=== PATIENT | male | born 1970 | race Two or more races ===

== ENCOUNTER 2024-09-11 13:55 | Outpatient (AMB) | payer MEDICAID, SELFPAY ==
[2024-09-11 14:14] VITALS: BP 98/65; PULSE 79; RESP 18; TEMP 36.7; O2SAT 96; BMI 38.0
--- NOTE | 2024-09-11 14:14 | PD.ORTHCLVIS ---
Vital signs 09/11/24 14:14 Height 1.68 m Height Method Stated Weight 106.793 kg Weight Measurement Method Standing Scale BMI 38.0 BP 98/65 Blood Pressure Source Automatic Cuff Blood Pressure Location Right Upper Arm Position Sitting Respiration 18 Pulse 79 Pulse Source Monitor Temp 98.0 F Temp Source Temporal Artery Scan Pulse Oximetry (%) 96 Oxygen Delivery Method Room Air Med/Allergies Allergies & Medications Allergies No Known Allergies Allergy (Verified 09/11/24 14:16) Medication Reconciliation atorvastatin 40 mg tablet 40 mg PO HS 09/25/22 [History Confirmed 09/11/24] clindamycin HCl 300 mg capsule 300 mg PO TID 09/25/22 [History Confirmed 09/11/24] insulin glargine 100 unit/mL (3 mL) subcutaneous pen (Lantus Solostar U-100 Insulin) 28 unit subcut HS 09/25/22 [History Confirmed 09/11/24] sitagliptin phosphate 50 mg-metformin 1,000 mg tablet (Janumet) 1 tab PO BID 09/25/22 [History Confirmed 09/11/24] omeprazole 20 mg capsule,delayed release 20 mg PO QDAY Gastrointestinal Issues 10/25/22 [History Confirmed 09/11/24] Subjective Visit Visit for: new patient and knee (RIGHT OA) Immunization / Flu Flu Vaccine in the Last 12 Months: No Flu Vaccine Exclusion Criteria: Refused by Patient History of Present Illness Chief complaint: RIGHT KNEE OA/RIGHT KNEE PAIN So good is a pleasant 53-year-old male with bilateral knee pain worse on the right. He had over 6 injections with 3 in each knee. They are no longer helping. He has tried anti-inflammatories previously. He reports that he has a history of diabetes and is uncontrolled. 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 Exam Exam Patient is in no acute distress and is cooperative with the examination today. Breathing is nonlabored. In no respiratory distress. Bilateral extremities were evaluated and demonstrates sensation intact to light touch. Palpable pedal pulses are present. No significant edema is present. Bilateral hips were examined. The patient has no pain with log roll of the hips. Internal rotation to 30 degrees and external rotation to 30 degrees is painless. Negative FADIR. The left knee was examined. The left knee is in [varus] alignment. Range of motion from [0-115] degrees. Knee is stable to varus and valgus as well as AP translation with <5mm. Patient has a [negative] McMurrays. There is [no] pain with patellofemoral compression and [no] crepitus noted. The knee is [tender] to palpation [medially]. The right knee was also examined. The right knee is in [varus] alignment. Range of motion from [0-120] degrees. Knee is stable to varus and valgus as well as AP translation with <5mm. Patient has a [negative] McMurrays. There is [no] pain with patellofemoral compression and [no] crepitus noted. The knee is [tender] to palpation [medially]. We reviewed x-rays that are nonweightbearing. This demonstrates severe arthritis and joint space narrowing Assessment and Plan Problem List (1) Degenerative arthritis of knee, bilateral: Status: Acute Plan: Patient is a pleasant 53-year-old male with bilateral knee pain and bilateral knee arthritis. We discussed nonoperative and operative options. We discussed that he needs to be optimized medically. We need his diabetes to be better controlled we will order hemoglobin A1c right now. In addition, he needs to stop smoking before surgery. We will get weightbearing x-rays to better evaluate how his knee looks currently. 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
== END 2024-09-11 14:33 | disposition home or self-care (01) ==
PROVIDERS: PCP Registered Nurse Community Health; Referring Provider Registered Nurse Community Health; Supervising Provider Orthopaedic Surgery Adult Reconstructive Orthopaedic Surgery; Visit Provider Orthopaedic Surgery Adult Reconstructive Orthopaedic Surgery
DX: M17.0 Bilateral primary osteoarthritis of knee (principal); M25.562 Pain in left knee; M25.561 Pain in right knee; E11.9 Type 2 diabetes mellitus without complications; E78.00 Pure hypercholesterolemia, unspecified; I10 Essential (primary) hypertension
CPT/HCPCS: 99204; G0463

== ENCOUNTER → 2024-09-25 | Outpatient (CLI) | payer MEDICAID, SELFPAY ==
--- NOTE | 2024-09-25 14:30 | XR_ITS ---
Examination: Carotid arterial duplex scan, ultrasound. Date and time of exam: September 25, 2024 1418 hours INDICATIONS: Dizziness episodes beginning 2 years ago, worse the last 2 months Technique: Multiple sonographic images have been obtained of the carotid arteries and vertebral arteries, B-mode/grayscale imaging and Doppler spectral analysis and color flow Peak systolic and diastolic velocities have been recorded. Systolic diastolic ratios have been calculated. Findings: Right peak systolic velocities: Distal internal carotid artery peak systolic velocity is 0.7 M/sec Proximal internal carotid artery peak systolic velocity is 0.5 M/sec Carotid bifurcation peak systolic velocity is 1.2 M/sec External carotid artery peak systolic velocity is 1.1 M/sec Vertebral artery flow is antegrade. Left peak systolic velocities: Distal internal carotid artery peak systolic velocity is 0.6 M/sec Proximal internal carotid artery peak systolic velocity is 0.3 M/sec Carotid bifurcation peak systolic velocity is 1.1 M/sec External carotid artery peak systolic velocity is 0.5 M/sec Vertebral artery flow is antegrade Doppler waveform analysis demonstrates no spectral broadening Impression: Right internal carotid artery demonstrates 0-10% stenosis. Left internal carotid artery demonstrates 0-10% stenosis.
== END | disposition home or self-care (01) ==
PROVIDERS: PCP Registered Nurse Community Health; Referring Provider Registered Nurse Community Health; Visit Provider Registered Nurse Community Health
DX: E78.2 Mixed hyperlipidemia (principal); R42 Dizziness and giddiness; I10 Essential (primary) hypertension
CPT/HCPCS: 93880

== ENCOUNTER → 2024-09-28 | Outpatient (CLI) | payer MEDICAID, SELFPAY ==
--- NOTE | 2024-09-28 14:00 | ECHO_ITS ---
Transthoracic Echo Report Ht (in): 66 Wt (lb): 238 Exam Location: Echo Lab Status: Preadmit Industrial Controller: Juhi Watson Indications: Procedure Performed: BP: / HR: Rhythm: Sinus Technical Quality: Fair MEASUREMENTS (Male / Female) Normal Values 2D ECHO LV Diastolic Diameter PLAX 5.4 cm 4.2 - 5.9 / 3.9 - 5.3 cm LV Systolic Diameter PLAX 3.4 cm IVS Diastolic Thickness 1.0 cm 0.6 - 1.0 / 0.6 - 0.9 cm LVPW Diastolic Thickness 1.1 cm 0.6 - 1.0 / 0.6 - 0.9 cm LV Relative Wall Thickness 0.4 LVOT Diameter 1.9 cm LA Volume Index 23.8 cm?/m? 16 - 28 cm?/m? Ascending Aorta Diameter 3.5 cm M-MODE Aortic Root Diameter MM 2.9 cm LA Systolic Diameter MM 4.0 cm LA Ao Ratio MM 1.4 AV Cusp Separation MM 2.2 cm DOPPLER AV Peak Velocity 182.0 cm/s AV Peak Gradient 13.2 mmHg AV Mean Gradient 7.0 mmHg AV Velocity Time Integral 37.4 cm LVOT Peak Velocity 123.0 cm/s LVOT Peak Gradient 6.1 mmHg LVOT Velocity Time Integral 24.3 cm AV Area Cont Eq vti 1.8 cm? AV Area Cont Eq pk 1.9 cm? MV Peak Velocity 77.5 cm/s MV Peak Gradient 2.4 mmHg MV Mean Velocity 48.9 cm/s MV Mean Gradient 1.0 mmHg MV Area PHT 3.1 cm? Mitral E Point Velocity 69.8 cm/s Mitral A Point Velocity 73.7 cm/s Mitral E to A Ratio 0.9 LV E' Lateral Velocity 6.3 cm/s Mitral E to LV E' Lateral Ratio 11.1 LV E' Septal Velocity 7.3 cm/s Mitral E to LV E' Septal Ratio 9.6 FINDINGS Left Ventricle Normal left ventricular size, wall thickness, systolic function with no obvious regional wall motion abnormalities. The ejection fraction is visually estimated at 55-60%. Right Ventricle The right ventricle is normal in size and systolic function. Left Atrium The left atrium is normal by two-dimensional, color flow and Doppler imaging with no structural abnormalities, no thrombus formation present. Right Atrium The right atrium is normal by two-dimensional imaging, color flow and Doppler imaging with no struct ural abnormalities, no thrombus formation present. Atrial Septum The interatrial septum appears normal with no evidence of a shunt. Aorta The aorta is normal by two-dimensional, color flow and Doppler interrogation. Mitral Valve The mitral valve is normal by two-dimensional, color flow and Doppler interrogation. There is no sig nificant mitral valve regurgitation. Aortic Valve The aortic valve is trileaflet and normal by two-dimensional, color flow and Doppler interrogation. There is trace aortic valve regurgitation. Tricuspid Valve The tricuspid valve is normal by two-dimensional, color flow and Doppler interrogation. There is tra ce tricuspid valve regurgitation. Pulmonic Valve There is no significant pulmonic valve regurgitation. Vessels The pulmonary artery appears normal. The inferior vena cava pulmonary and hepatic veins appear betito l. Pericardium The pericardium is normal by two-dimensional imaging. There is no significant pericardial effusion. CONCLUSIONS Normal LV size and function. Estimated EF 55-60% Normal RV size and function Trace TR, AI. Jeanine Schneider (Electronically Signed) Final Date: 01 October 2024 08:43
== END | disposition home or self-care (01) ==
LOC: SDIM 13:11
PROVIDERS: PCP Registered Nurse Community Health; Referring Provider Registered Nurse Community Health; Visit Provider Registered Nurse Community Health
DX: I08.2 Rheumatic disorders of both aortic and tricuspid valves (principal)
CPT/HCPCS: 93306

== ENCOUNTER 2024-10-12 08:19 | Outpatient (AMB) | payer MEDICAID, SELFPAY ==
[2024-10-12 08:44] VITALS: BP 132/87; PULSE 68; RESP 16; TEMP 36.7; O2SAT 96; BMI 37.7
--- NOTE | 2024-10-12 08:44 | PD.ORTHCLVIS ---
Vital signs 10/12/24 08:44 Height 1.68 m Height Method Stated Weight 105.942 kg Weight Measurement Method Standing Scale BMI 37.7 BP 132/87 H Blood Pressure Source Automatic Cuff Blood Pressure Location Left Upper Arm Position Sitting Respiration 16 Pulse 68 Pulse Source Monitor Temp 98.1 F Temp Source Temporal Artery Scan Pulse Oximetry (%) 96 Oxygen Delivery Method Room Air Med/Allergies Allergies & Medications Allergies No Known Allergies Allergy (Verified 10/12/24 08:45) Medication Reconciliation atorvastatin 40 mg tablet 40 mg PO HS 09/25/22 [History Confirmed 10/12/24] clindamycin HCl 300 mg capsule 300 mg PO TID 09/25/22 [History Confirmed 10/12/24] insulin glargine 100 unit/mL (3 mL) subcutaneous pen (Lantus Solostar U-100 Insulin) 28 unit subcut HS 09/25/22 [History Confirmed 10/12/24] sitagliptin phosphate 50 mg-metformin 1,000 mg tablet (Janumet) 1 tab PO BID 09/25/22 [History Confirmed 10/12/24] omeprazole 20 mg capsule,delayed release 20 mg PO QDAY Gastrointestinal Issues 10/25/22 [History Confirmed 10/12/24] Exam Exam Patient is in no acute distress and is cooperative with the examination today. Breathing is nonlabored. In no respiratory distress. Bilateral extremities were evaluated and demonstrates sensation intact to light touch. Palpable pedal pulses are present. No significant edema is present. Bilateral hips were examined. The patient has no pain with log roll of the hips. Internal rotation to 30 degrees and external rotation to 30 degrees is painless. Negative FADIR. The left knee was examined. The left knee is in [varus] alignment. Range of motion from [0-115] degrees. Knee is stable to varus and valgus as well as AP translation with <5mm. Patient has a [negative] McMurrays. There is [no] pain with patellofemoral compression and [no] crepitus noted. The knee is [tender] to palpation [medially]. The right knee was also examined. The right knee is in [varus] alignment. Range of motion from [0-120] degrees. Knee is stable to varus and valgus as well as AP translation with <5mm. Patient has a [negative] McMurrays. There is [no] pain with patellofemoral compression and [no] crepitus noted. The knee is [tender] to palpation [medially]. We reviewed x-rays that are nonweightbearing. This demonstrates severe arthritis and joint space narrowing Assessment and Plan Problem List (1) Degenerative arthritis of knee, bilateral: Status: Acute Plan: Patient is a pleasant 53-year-old male with bilateral knee pain and bilateral knee arthritis. We discussed nonoperative and operative options. We discussed that he needs to be optimized medically. We need his diabetes to be better controlled we will order hemoglobin A1c right now. In addition, he needs to stop smoking before surgery. W We will get a repeat hemoglobin A1c to see if his sugars are controlled. We discussed that it would need to be under 8 for us to proceed with surgery. We also would like him to stop smoking Office Procedures GNS Level of Care Nursing/Assessment Patient Status: Established Patient Nursing Assessment/Reassesment: Medication Reconciliation, Update PMH in EMR and Vital Signs Coordination of Care: Complex Care and Chronic Disease 1-5, Education Complex Pt/Fam and Staff clarify orders Special Needs: Language special needs Established Patient Charge Established Patient Point Assignment: 85 Established Patient Point Charge: EP Level 3 (80-115) MA Intake Visit Data Collection New Patient or Established: Established Patient (seen at [facility] within 3 years) Reason for Visit:: follow up bilateral knee pain and xray results Seen by Clinical Staff ONLY (RN/MA): No 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 PCP or OBGYN visit in last 3 months: Yes Hx Now: No Do You Feel Safe at Home: Yes Questionairres Past Medical History Past Medical History Have you ever been diagnosed with any of the following: Cardiology Problems Hypercholesterolemia: Yes Congestive Heart Failure: No Hypertension: Yes Respiratory Problems Chronic Obstructive Pulmonary Disease (COPD): No Smoking: Yes (15 YEARS) Smoking Cessation Counseling: No Smoking Exposure: Yes Stomache/Intestinal Problems Gastroesophageal Reflux Disease: Yes Genital/Urinary Problems Renal Disease: No Endocrine Problems Diabetes Mellitus Type 1: Yes Diabetes Mellitus Type 2: Yes Psychologic Problems Depression: Yes Anxiety: Yes Subjective Visit Visit for: follow up visit and knee Immunization / Flu Flu Vaccine in the Last 12 Months: No Flu Vaccine Exclusion Criteria: Refused by Patient History of Present Illness Chief complaint: follow up bilateral knee pain and xray results Patient is a pleasant 54-year-old male who presents today for evaluation of his bilateral knees. He has had knee pain for quite some time. He has tried over 6 injections in each knee. The pain side effect is quite life and happiness. He has uncontrolled diabetes. We asked him to get a hemoglobin A1c but he did not get one. He still smoking 3 cigarettes a day Pain Pain level (0-10): 8 Pain duration: with movement Pain location: inside (medial), outside (lateral), anterior and posterior Pain quality: aching Pain timing: increases with activity Associated signs & symptoms: none Ambulatory data Ambulatory device: none Treatments Number of previous injections: 8 Improvement with previous injections: No Improvement with NSAIDS: yes Review of Systems Review of Systems: All systems negative unless otherwise noted in HPI.
== END 2024-10-12 09:20 | disposition home or self-care (01) ==
PROVIDERS: PCP Registered Nurse Community Health; Referring Provider Registered Nurse Community Health; Supervising Provider Orthopaedic Surgery Adult Reconstructive Orthopaedic Surgery; Visit Provider Orthopaedic Surgery Adult Reconstructive Orthopaedic Surgery
DX: M17.0 Bilateral primary osteoarthritis of knee (principal); M25.562 Pain in left knee; M25.561 Pain in right knee; E11.9 Type 2 diabetes mellitus without complications; I10 Essential (primary) hypertension; E78.00 Pure hypercholesterolemia, unspecified; K21.9 Gastro-esophageal reflux disease without esophagitis
CPT/HCPCS: 99213; G0463

== ENCOUNTER → 2025-03-28 | Outpatient (CLI) | payer MEDICAID, SELFPAY ==
--- NOTE | 2025-03-28 14:11 | XR_ITS ---
Examination: CT brain head without contrast. 2-D sagittal coronal reconstructions Date and time of exam:March 28, 2025 1449 hours INDICATIONS: Dizziness vertigo 2 years CTDI: vol (mGy):55 DLP: (mGycm):1078 Technique: Multiple CT axial sections of the brain have been obtained, 5 mm slice thickness. Contrast has not been administered. 2-D sagittal, coronal reconstructions have been obtained Low dose protocols were performed. One or more of the following dose reduction techniques were used; automated exposure control, adjustment of the mA and/or KV according to patient size, use of iterative reconstruction technique. Findings: No significant ventricular enlargement. Intra-axial or extra-axial hemorrhage density is not seen. No mass effect or midline shift Basal cisterns are not remarkable. Fourth ventricle is midline. Cranial vault intact. Impression: Negative for acute hemorrhage, mass effect or midline shift
== END | disposition home or self-care (01) ==
PROVIDERS: PCP Registered Nurse Community Health; Referring Provider Registered Nurse Community Health; Visit Provider Registered Nurse Community Health
DX: R42 Dizziness and giddiness (principal); E11.65 Type 2 diabetes mellitus with hyperglycemia; I10 Essential (primary) hypertension; R51.9 Headache, unspecified
CPT/HCPCS: 70450

== ENCOUNTER 2025-05-02 14:53 | Outpatient (AMB) | payer MEDICAID, SELFPAY ==
[2025-05-02 15:19] VITALS: BP 151/93; PULSE 79; RESP 16; TEMP 35.8; O2SAT 92; BMI 38.6
--- NOTE | 2025-05-02 15:19 | ORTHONT_ITS ---
Vital signs 05/02/25 15:19 Height 1.68 m Height Method Stated Weight 109.032 kg Weight Measurement Method Standing Scale BMI 38.6 BP 151/93 H Blood Pressure Source Automatic Cuff Blood Pressure Location Right Upper Arm Position Sitting Respiration 16 Pulse 79 Pulse Source Monitor Temp 96.4 F L Temp Source Temporal Artery Scan Pulse Oximetry (%) 92 L Oxygen Delivery Method Room Air Med/Allergies Allergies & Medications Allergies No Known Allergies Allergy (Verified 05/02/25 15:20) Medication Reconciliation atorvastatin 40 mg tablet 40 mg PO HS 09/25/22 [History Confirmed 05/02/25] clindamycin HCl 300 mg capsule 300 mg PO TID 09/25/22 [History Confirmed 05/02/25] insulin glargine 100 unit/mL (3 mL) subcutaneous pen (Lantus Solostar U-100 Insulin) 28 unit subcut HS 09/25/22 [History Confirmed 05/02/25] sitagliptin phosphate 50 mg-metformin 1,000 mg tablet (Janumet) 1 tab PO BID 09/25/22 [History Confirmed 05/02/25] omeprazole 20 mg capsule,delayed release 20 mg PO QDAY Gastrointestinal Issues 10/25/22 [History Confirmed 05/02/25] Exam Exam Patient is in no acute distress and is cooperative with the examination today. Breathing is nonlabored. In no respiratory distress. Bilateral extremities were evaluated and demonstrates sensation intact to light touch. Palpable pedal pulses are present. No significant edema is present. Bilateral hips were examined. The patient has no pain with log roll of the hips. Internal rotation to 30 degrees and external rotation to 30 degrees is painless. Negative FADIR. The left knee was examined. The left knee is in [varus] alignment. Range of motion from [0-115] degrees. Knee is stable to varus and valgus as well as AP translation with <5mm. Patient has a [negative] McMurrays. There is [no] pain with patellofemoral compression and [no] crepitus noted. The knee is [tender] to palpation [medially]. The right knee was also examined. The right knee is in [varus] alignment. Range of motion from [0-120] degrees. Knee is stable to varus and valgus as well as AP translation with <5mm. Patient has a [negative] McMurrays. There is [no] pain with patellofemoral compression and [no] crepitus noted. The knee is [tender] to palpation [medially]. X-rays from August 2024 demonstrates complete joint space obliteration both knees medially with varus deformity. Osteophytes are present Assessment and Plan Problem List (1) Degenerative arthritis of knee, bilateral: Status: Acute Plan: Patient is a pleasant 53-year-old male with bilateral knee pain and bilateral knee arthritis. His hemoglobin A1c is 7.9. His diabetes is well-controlled. We thus discussed total knee replacement is a reasonable option. The pain is worse on the right and we will thus start on that side. The nature and purpose of the total knee replacement, alternative method(s) of treatment, the material risks involved, and the possibility of complications were fully explained to the patient. The patient does NOT have any of the following contraindications to TKA: - Active infection of the knee joint, OR - Active systemic bacteremia, OR - Active skin infection or open wound at surgical site, OR - Neuropathic arthritis, OR - Severe, rapidly progressive neurological disease, OR - Severe medical condition that makes risks of surgery outweigh the potential benefit The patient was told the most common risks and complications associated with a total knee replacement include, but are not limited to: blood clots in the leg, fatal pulmonary embolism, dislocation of the prosthesis, intraoperative and postoperative fractures of the femur or tibia, infection, failure of the prosthesis or grafting materials, complications from anesthesia, reactions to blood transfusions, postoperative leg length inequality, instability of the knee replacement, nerve damage or injury, vascular injury, delayed wound healing, infection, other injury or even . In addition, there are risks associated with anesthesia given during this operation. Also, the patient was told that after undergoing a total knee replacement there may still be persistent pain or disability. The patient was informed that the success of this operation in part depends upon the mechanical devices which are going to be implanted and that these devices can fail or malfunction, and may need to be repaired or replaced and there are no guarantees as to the longevity of this device or its parts and that it or its parts could fail prematurely. The patient was also notified that during the course of surgery, there may be a need to use bone graft from donors, and that any bone graft used will be carefully screened for communicable diseases, including AIDS, hepatitis, Paul-Creutzfeldt, or other diseases, but despite the screening procedures, there is a small chance that they could contract one of these diseases. Finally, the patient was asked to follow completely and fully with all advice and recommended treatments, and that recovery and ultimate outcome are affected by their compliance with recommended treatment. We discussed the risks, benefits and treatment alternatives, and the patient is interested in proceeding with surgery. We will try to set this up as expeditiously as possible. Office Procedures GNS Level of Care Nursing/Assessment Patient Status: Established Patient Nursing Assessment/Reassesment: Medication Reconciliation, Update PMH in EMR and Vital Signs Coordination of Care: Complex Care and Chronic Disease 1-5, Education Complex Pt/Fam, Consent,records obtained, informed consent, Education Simp Pt/Fam and Staff clarify orders Special Needs: Language special needs Established Patient Charge Established Patient Point Assignment: 105 Established Patient Point Charge: EP Level 3 (80-115) MA Intake Visit Data Collection New Patient or Established: Established Patient (seen at [facility] within 3 years) Reason for Visit:: SURGERY CLEARANCE Seen by Clinical Staff ONLY (RN/MA): No 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 PCP or OBGYN visit in last 3 months: No Hx Now: No Do You Feel Safe at Home: Yes Authorities Contacted: N/A Questionairres Past Medical History Past Medical History Have you ever been diagnosed with any of the following: Neurological Problems Cerebrovascular Accident (CVA): No Transient Ischemic Attacks (TIA): No Dementia: No Alzheimer's Disease: No Parkinson's Disease: No Brain Tumor: No Meningitis: No Seizures: No Epilepsy: No Multiple Sclerosis: No Cerebral Palsy: No Amyotrophic Lateral Sclerosis (ALS/Laverne Gehrig's): No Guillain-Clearfield Syndrome: No Spina Bifida: No Paralysis: No Peripheral Neuropathy: No Kang's Palsy: No Subdural Hematoma: No Migraine: No Head Trauma: No Spinal Cord Injury: No Traumatic Brain Injury: No Cardiology Problems Myocardial Infarction: No Cardiac Arrhythmia: No Atrial Fibrillation: No Angina: No Heart Murmur: No Coronary Artery Disease: No Atherosclerotic Heart Disease: No Peripheral Vascular Disease: No Hypercholesterolemia: Yes Aneurysm: No Congestive Heart Failure: No Congenital Heart Disease: No Valvular Heart Disease: No Rheumatic Fever: No Cardiomyopathy: No Edema: No Pericarditis: No Cellulitis: No Deep Vein Thrombosis: No Hypertension: Yes Hypotension: No Varicose Veins: No Respiratory Problems Chronic Obstructive Pulmonary Disease (COPD): No Asthma: No Bronchitis: No Emphysema: No Pneumonia: No Pulmonary Fibrosis: No Tuberculosis: No Pulmonary Embolism: No Pulmonary Edema: No Sleep Apnea: No CPAP Dependent: No Respiratory Aspiration: No Dyspnea: No Orthopnea: No Hx Cough: No Cough: No Wheezing: No Chest Deformities: No Smoking: Yes (15 YEARS) Smoking Cessation Counseling: No Smoking Exposure: Yes Tobacco Use: No Clubbing: No Exposure to Respiratory Irritants: No Intubation: No Stomache/Intestinal Problems Liver Cancer: No Hepatitis: No Cirrhosis: No Pancreatic Cancer: No Pancreatitis: No Celiac Disease: No Gall Bladder Disease: No Gastrointestinal Bleed: No Esophageal Varices: No Sidhu's Esophagus: No Colitis: No Ulcerative Colitis: No Diverticulitis: No Diverticulosis: No Ulcer: No Colorectal Cancer: No Irritable Bowel: No Crohn's Disease: No Obstructive Bowel: No Hiatal Hernia: No Hemorrhoids: No Gastroesophageal Reflux Disease: Yes Polyps: No Obesity: No Genital/Urinary Problems Chronic Kidney Disease: No Renal Disease: No Kidney Stones: No Polycystic Kidney Disease: No Neurogenic Bladder: No Inguinal Hernia: No Dialysis: No Prostate Cancer: No Benign Prostatic Hyperplasia: No Reproductive Problems Breast Cancer: No Fibroids: No Genital Herpes: No Gonorrhea: No Syphilis: No Testicular Cancer: No Musculoskeletal Problems Muscular Dystrophy: No Myasthenia Gravis: No Marfan's Syndrome: No Bone Cancer: No Arthritis: No Rheumatoid Arthritis: No Osteoporosis: No Degenerative Disk Disease: No Gout: No Scoliosis: No Carpal Tunnel Syndrome: No Fibromyalgia: No Fractures: No Degenerative Joint Disease: No Osteomyelitis: No Poliovirus: No Head,Eye,Nose,Throat Problems Cataracts: No Glaucoma: No Blind: No Retinal Detachment: No Macular Degeneration: No Chronic Ear Infections: No Deafness: No Eye Prosthesis: No Endocrine Problems Diabetes Mellitus Type 1: Yes Diabetes Mellitus Type 2: Yes Hypoglycemia: No [place]'s Syndrome: No Houston's Disease: No Hyperthyroidism: No Hypothyroidism: No Thyroid Cancer: No Parathyroid Disease: No Pituitary Disease: No Systemic Lupus Erythematosus: No Syndrome of Inappropriate Antidiuretic Hormone: No Adrenal Disease: No Graves' Disease: No Blood Problems Anemia: No Leukemia: No Hemophilia: No Thalassemia: No Sickle Cell Disease: No Clotting Problems: No Psychologic Problems Schizophrenia: No Recreational Drug Use: No Bipolar Disorder: No Depression: Yes Anxiety: Yes Behavior Problems: No Self-Mutilation: No Attention Deficit Disorder: No Attention Deficit Hyperactivity Disorder: No Depression: No Post Traumatic Stress Disorder: No Eating Disorder: No Other Problems Hospitalization: No Autoimmune Disease: No Down Syndrome: No Autism: No Developmental Delay: No Cosmetic Surgery: No Shingles: No Falls: No Blood Transfusions: No Blood Transfusion Reaction: No Anesthesia Reactions: No Organ Transplant: No Chemotherapy: No Radiation Therapy: No Hyperbaric Therapy: No MRSA: No VRSA: No Vancomycin-Resistant Enterococci: No Human Immunodeficiency Virus (HIV): No Chicken Pox: No Measles: No Mumps: No Rubella ([place] Measles): No Pertussis: No Klebsiella Pneumoniae Carbapenemase Producing Bacteria: No Clostridium Difficile: No Hepatitis A: No Hepatitis B: No Hepatitis C: No Communicable Disease: No Cancer: No Lung Cancer: No Surgical History Angioplasty: No Appendectomy: No Bariatric Surgery: No Breast Surgery: No Cancer Surgery: No Carotid Endarterectomy: No Cholecystectomy: No Colectomy: No Colostomy: No Coronary Artery Bypass Graft: No Valve Replacement: No Herniorrhaphy: No Total Hip Replacement: No Total Knee Replacement: No Pacemaker: No Sinus Surgery: No Splenectomy: No Thyroidectomy: No Ureter Stent: No Subjective Visit Visit for: follow up visit Immunization / Flu Flu Vaccine in the Last 12 Months: No Flu Vaccine Exclusion Criteria: Refused by Patient and No Exclusion Criteria History of Present Illness Chief complaint: SURGERY CLEARANCE Patient is a pleasant 54-year-old male who presents today for evaluation of his bilateral knees. He has had knee pain for quite some time. He has tried over 6 injections in each knee. The pain side effect is quite life and happiness. He has uncontrolled diabetes previously which is now controlled. Hemoglobin A1c is 7.9. He is also stopped smoking 2 months ago. 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
== END 2025-05-02 15:54 | disposition home or self-care (01) ==
PROVIDERS: PCP Registered Nurse Community Health; Referring Provider Registered Nurse Community Health; Supervising Provider Orthopaedic Surgery Adult Reconstructive Orthopaedic Surgery; Visit Provider Orthopaedic Surgery Adult Reconstructive Orthopaedic Surgery
DX: M17.0 Bilateral primary osteoarthritis of knee (principal); M25.562 Pain in left knee; M25.561 Pain in right knee; E11.9 Type 2 diabetes mellitus without complications; I10 Essential (primary) hypertension; E78.00 Pure hypercholesterolemia, unspecified; K21.9 Gastro-esophageal reflux disease without esophagitis
CPT/HCPCS: 99213; G0463

== ENCOUNTER → 2025-05-30 | Outpatient (CLI) | payer MEDICAID, SELFPAY ==
--- NOTE | 2025-05-30 09:03 | XR_ITS ---
Examination: CT brain head without contrast. 2-D sagittal reconstructions. 2-D coronal reconstructions. Date and time of exam:May 30, 2025 1016 hours INDICATIONS: Stroke alert, onset focal neurologic deficit today CTDI: vol (mGy): 41.9 DLP: (mGycm):840 Technique: Axial sections of the brain have been obtained. 5 mm slice thickness images have been obtained. Intravenous contrast material has not been administered. Low dose protocols were performed. One or more of the following dose reduction techniques were used; automated exposure control, adjustment of the mA and/or KV according to patient size, use of iterative reconstruction technique. Findings: Ventricles normal size and configuration. No mass effect upon the ventricular system. 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
== END | disposition home or self-care (01) ==
LOC: CCTX 08:54
PROVIDERS: PCP Registered Nurse Community Health; Referring Provider Orthopaedic Surgery Adult Reconstructive Orthopaedic Surgery; Visit Provider Orthopaedic Surgery Adult Reconstructive Orthopaedic Surgery
DX: M17.11 Unilateral primary osteoarthritis, right knee (principal)
CPT/HCPCS: 73700

== ENCOUNTER 2025-05-31 14:49 | Outpatient (AMB) | payer MEDICAID, SELFPAY ==
--- NOTE | 2025-05-31 15:13 | ORTHONT_ITS ---
Vital signs 05/31/25 15:14 Height 1.68 m Height Method Stated Weight 107.983 kg Weight Measurement Method Standing Scale BMI 38.2 BP 133/90 H Blood Pressure Source Automatic Cuff Blood Pressure Location Left Upper Arm Position Sitting Respiration 18 Pulse 87 Pulse Source Monitor Temp 95.5 F L Temp Source Temporal Artery Scan Pulse Oximetry (%) 94 L Oxygen Delivery Method Room Air Med/Allergies Allergies & Medications Allergies No Known Allergies Allergy (Verified 05/31/25 15:19) Medication Reconciliation atorvastatin 40 mg tablet 40 mg PO HS 09/25/22 [History Confirmed 05/31/25] insulin glargine 100 unit/mL (3 mL) subcutaneous pen (Lantus Solostar U-100 Insulin) 25 unit subcut HS 09/25/22 [History Confirmed 05/31/25] amlodipine 10 mg tablet 10 mg PO HS 05/29/25 [History Confirmed 05/31/25] empagliflozin 25 mg tablet (Jardiance) 25 mg PO QAM 05/29/25 [History Confirmed 05/31/25] ergocalciferol (vitamin D2) 1,250 mcg (50,000 unit) capsule 1,250 mcg PO QWEEK 05/29/25 [History Confirmed 05/31/25] meloxicam 15 mg tablet 15 mg PO HS 05/29/25 [History Confirmed 05/31/25] metformin 1,000 mg tablet 1,000 mg PO BID 05/29/25 [History Confirmed 05/31/25] omeprazole 40 mg capsule,delayed release 40 mg PO DAILY 05/29/25 [History Confirmed 05/31/25] tirzepatide 5 mg/0.5 mL subcutaneous pen injector (Mounjaro) 5 mg subcut QWEEK 05/29/25 [History Confirmed 05/31/25] Exam Exam Patient is in no acute distress and is cooperative with the examination today. Breathing is nonlabored. In no respiratory distress. Bilateral extremities were evaluated and demonstrates sensation intact to light touch. Palpable pedal pulses are present. No significant edema is present. Bilateral hips were examined. The patient has no pain with log roll of the hips. Internal rotation to 30 degrees and external rotation to 30 degrees is painless. Negative FADIR. The left knee was examined. The left knee is in [varus] alignment. Range of motion from [0-115] degrees. Knee is stable to varus and valgus as well as AP translation with <5mm. Patient has a [negative] McMurrays. There is [no] pain with patellofemoral compression and [no] crepitus noted. The knee is [tender] to palpation [medially]. The right knee was also examined. The right knee is in [varus] alignment. Range of motion from [0-120] degrees. Knee is stable to varus and valgus as well as AP translation with <5mm. Patient has a [negative] McMurrays. There is [no] pain with patellofemoral compression and [no] crepitus noted. The knee is [tender] to palpation [medially]. X-rays from August 2024 demonstrates complete joint space obliteration both knees medially with varus deformity. Osteophytes are present Assessment and Plan Problem List (1) Degenerative arthritis of knee, bilateral: Status: Acute Plan: Patient is a pleasant 53-year-old male with bilateral knee pain and bilateral knee arthritis. His hemoglobin A1c is 7.9. His diabetes is well-controlled. We thus discussed total knee replacement is a reasonable option. The pain is worse on the right and we will thus start on that side. The nature and purpose of the total knee replacement, alternative method(s) of treatment, the material risks involved, and the possibility of complications were fully explained to the patient. The patient does NOT have any of the following contraindications to TKA: - Active infection of the knee joint, OR - Active systemic bacteremia, OR - Active skin infection or open wound at surgical site, OR - Neuropathic arthritis, OR - Severe, rapidly progressive neurological disease, OR - Severe medical condition that makes risks of surgery outweigh the potential benefit The patient was told the most common risks and complications associated with a total knee replacement include, but are not limited to: blood clots in the leg, fatal pulmonary embolism, dislocation of the prosthesis, intraoperative and postoperative fractures of the femur or tibia, infection, failure of the prosthesis or grafting materials, complications from anesthesia, reactions to blood transfusions, postoperative leg length inequality, instability of the knee replacement, nerve damage or injury, vascular injury, delayed wound healing, infection, other injury or even . In addition, there are risks associated with anesthesia given during this operation. Also, the patient was told that after undergoing a total knee replacement there may still be persistent pain or disability. The patient was informed that the success of this operation in part depends upon the mechanical devices which are going to be implanted and that these devices can fail or malfunction, and may need to be repaired or replaced and there are no guarantees as to the longevity of this device or its parts and that it or its parts could fail prematurely. The patient was also notified that during the course of surgery, there may be a need to use bone graft from donors, and that any bone graft used will be carefully screened for communicable diseases, including AIDS, hepatitis, Paul-Creutzfeldt, or other diseases, but despite the screening procedures, there is a small chance that they could contract one of these diseases. Finally, the patient was asked to follow completely and fully with all advice and recommended treatments, and that recovery and ultimate outcome are affected by their compliance with recommended treatment. We discussed the risks, benefits and treatment alternatives, and the patient is interested in proceeding with surgery. We will try to set this up as expeditiously as possible. Office Procedures GNS Level of Care Nursing/Assessment Patient Status: Established Patient Nursing Assessment/Reassesment: Medication Reconciliation, Update PMH in EMR and Vital Signs Coordination of Care: Complex Care and Chronic Disease 1-5, Education Complex Pt/Fam, Consent,records obtained, informed consent, Results/Orders obtained and Staff clarify orders Special Needs: Language special needs Established Patient Charge Established Patient Point Assignment: 95 Established Patient Point Charge: EP Level 3 (80-115) MA Intake Visit Data Collection New Patient or Established: Established Patient (seen at [facility] within 3 years) Reason for Visit:: PRE OP SX CHANGED TO 06/05 Seen by Clinical Staff ONLY (RN/MA): No Verbal consent obtained for Telemed visit?: No 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 PCP or OBGYN visit in last 3 months: No Hx Now: No Do You Feel Safe at Home: Yes Authorities Contacted: N/A Questionairres Past Medical History Past Medical History Have you ever been diagnosed with any of the following: Neurological Problems Cerebrovascular Accident (CVA): No Transient Ischemic Attacks (TIA): No Dementia: No Alzheimer's Disease: No Parkinson's Disease: No Brain Tumor: No Meningitis: No Seizures: No Epilepsy: No Multiple Sclerosis: No Cerebral Palsy: No Amyotrophic Lateral Sclerosis (ALS/Laverne Gehrig's): No Guillain-Edon Syndrome: No Spina Bifida: No Paralysis: No Peripheral Neuropathy: No Kang's Palsy: No Subdural Hematoma: No Migraine: No Head Trauma: No Spinal Cord Injury: No Traumatic Brain Injury: No Cardiology Problems Myocardial Infarction: No Cardiac Arrhythmia: No Atrial Fibrillation: No Angina: No Heart Murmur: No Coronary Artery Disease: No Atherosclerotic Heart Disease: No Peripheral Vascular Disease: No Hypercholesterolemia: Yes Aneurysm: No Congestive Heart Failure: No Congenital Heart Disease: No Valvular Heart Disease: No Rheumatic Fever: No Cardiomyopathy: No Edema: Yes (feet get swollen in the evening) Pericarditis: No Cellulitis: No Deep Vein Thrombosis: No Hypertension: Yes Hypotension: No Varicose Veins: No Respiratory Problems Chronic Obstructive Pulmonary Disease (COPD): No Asthma: No Bronchitis: No Emphysema: No Pneumonia: No Pulmonary Fibrosis: No Tuberculosis: No Pulmonary Embolism: No Pulmonary Edema: No Sleep Apnea: No CPAP Dependent: No Respiratory Aspiration: No Dyspnea: No Orthopnea: No Hx Cough: No Cough: No Wheezing: No Chest Deformities: No Smoking: Yes (15 YEARS) Smoking Cessation Counseling: No Smoking Exposure: Yes Tobacco Use: No Clubbing: No Exposure to Respiratory Irritants: No Intubation: No Stomache/Intestinal Problems Liver Cancer: No Hepatitis: No Cirrhosis: No Pancreatic Cancer: No Pancreatitis: No Celiac Disease: No Gall Bladder Disease: No Gastrointestinal Bleed: No Esophageal Varices: No Sidhu's Esophagus: No Colitis: No Ulcerative Colitis: No Diverticulitis: No Diverticulosis: No Ulcer: No Colorectal Cancer: No Irritable Bowel: No Crohn's Disease: No Obstructive Bowel: No Hiatal Hernia: No Hemorrhoids: No Gastroesophageal Reflux Disease: Yes Polyps: No Obesity: Yes Genital/Urinary Problems Chronic Kidney Disease: No Renal Disease: No Kidney Stones: No Polycystic Kidney Disease: No Neurogenic Bladder: No Inguinal Hernia: No Dialysis: No Prostate Cancer: No Benign Prostatic Hyperplasia: No Reproductive Problems Breast Cancer: No Fibroids: No Genital Herpes: No Gonorrhea: No Syphilis: No Testicular Cancer: No Musculoskeletal Problems Muscular Dystrophy: No Myasthenia Gravis: No Marfan's Syndrome: No Bone Cancer: No Arthritis: Yes Rheumatoid Arthritis: No Osteoporosis: No Degenerative Disk Disease: No Gout: No Scoliosis: No Carpal Tunnel Syndrome: No Fibromyalgia: No Fractures: No Degenerative Joint Disease: No Osteomyelitis: No Poliovirus: No Head,Eye,Nose,Throat Problems Cataracts: No Glaucoma: No Blind: No Retinal Detachment: No Macular Degeneration: No Chronic Ear Infections: No Deafness: No Eye Prosthesis: No Endocrine Problems Diabetes Mellitus Type 1: No Diabetes Mellitus Type 2: Yes Hypoglycemia: No Monument's Syndrome: No Sutter's Disease: No Hyperthyroidism: No Hypothyroidism: No Thyroid Cancer: No Parathyroid Disease: No Pituitary Disease: No Systemic Lupus Erythematosus: No Syndrome of Inappropriate Antidiuretic Hormone: No Adrenal Disease: No Graves' Disease: No Blood Problems Anemia: No Leukemia: No Hemophilia: No Thalassemia: No Sickle Cell Disease: No Clotting Problems: No Psychologic Problems Schizophrenia: No Recreational Drug Use: No Bipolar Disorder: No Depression: Yes Anxiety: Yes Behavior Problems: No Self-Mutilation: No Attention Deficit Disorder: No Attention Deficit Hyperactivity Disorder: No Depression: No Post Traumatic Stress Disorder: No Eating Disorder: No Other Problems Hospitalization: Yes (tooth infection, left hand surgery) Autoimmune Disease: No Down Syndrome: No Autism: No Developmental Delay: No Cosmetic Surgery: No Shingles: No Falls: No Blood Transfusions: No Blood Transfusion Reaction: No Anesthesia Reactions: No Organ Transplant: No Chemotherapy: No Radiation Therapy: No Hyperbaric Therapy: No MRSA: No VRSA: No Vancomycin-Resistant Enterococci: No Human Immunodeficiency Virus (HIV): No Chicken Pox: Yes Measles: No Mumps: No Rubella (Greek Measles): No Pertussis: No Klebsiella Pneumoniae Carbapenemase Producing Bacteria: No Clostridium Difficile: No Hepatitis A: No Hepatitis B: No Hepatitis C: No Communicable Disease: No Cancer: No Lung Cancer: No Surgical History Angioplasty: No Appendectomy: No Bariatric Surgery: No Breast Surgery: No Cancer Surgery: No Carotid Endarterectomy: No Cholecystectomy: No Colectomy: No Colostomy: No Coronary Artery Bypass Graft: No Valve Replacement: No Herniorrhaphy: No Total Hip Replacement: No Total Knee Replacement: No Pacemaker: No Sinus Surgery: No Splenectomy: No Thyroidectomy: No Ureter Stent: No Subjective Visit Visit for: follow up visit and knee Immunization / Flu Flu Vaccine in the Last 12 Months: No Flu Vaccine Exclusion Criteria: No Exclusion Criteria History of Present Illness Chief complaint: PRE-OP RIGHT TKA Patient is a pleasant 54-year-old male who presents today for evaluation of his bilateral knees. He has had knee pain for quite some time. He has tried over 6 injections in each knee. The pain side effect is quite life and happiness. He has uncontrolled diabetes previously which is now controlled. Hemoglobin A1c is 7.9. He is also stopped smoking 3 months ago. Personal History Occupation: [employer] BMI Counceling provided: Yes Pain Pain level (0-10): 6 Pain duration: with movement Pain location: anterior Pain quality: dull Pain timing: increases with activity Associated signs & symptoms: weakness Ambulatory data Ambulatory device: none Treatments Number of previous injections: 8 Improvement with previous injections: No Improvement with PT: No Improvement with NSAIDS: no Review of Systems Review of Systems: All systems negative unless otherwise noted in HPI.
[2025-05-31 15:14] VITALS: BP 133/90; PULSE 87; RESP 18; TEMP 35.3; O2SAT 94; BMI 38.2
== END 2025-05-31 15:28 | disposition home or self-care (01) ==
PROVIDERS: PCP Registered Nurse Community Health; Referring Provider Registered Nurse Community Health; Supervising Provider Orthopaedic Surgery Adult Reconstructive Orthopaedic Surgery; Visit Provider Orthopaedic Surgery Adult Reconstructive Orthopaedic Surgery
DX: M17.0 Bilateral primary osteoarthritis of knee (principal); M25.562 Pain in left knee; M25.561 Pain in right knee; I10 Essential (primary) hypertension; E78.00 Pure hypercholesterolemia, unspecified; E11.9 Type 2 diabetes mellitus without complications; K21.9 Gastro-esophageal reflux disease without esophagitis; E66.9 Obesity, unspecified; Z71.3 Dietary counseling and surveillance; Z68.38 Body mass index [BMI] 38.0-38.9, adult
CPT/HCPCS: 99213; G0463

== ENCOUNTER 2025-06-05 08:10 | Day surgery (SDC) | payer MEDICAID, SELFPAY ==
[2025-05-29 09:41] VITALS: BMI 41.1
--- NOTE | 2025-05-29 10:20 | SUR.PREOP ---
Pt denies any open wounds, left arm has 3 dry scratches.
[2025-05-29 10:39] LABS: Basophils # (Auto) 0.1 Thou/mm3 (0.0-0.2); Basophils % (Auto) 1 % (0-2.5); Eosinophils # (Auto) 0.2 Thou/mm3 (0.0-0.5); Eosinophils % (Auto) 1 % (0-10); Hematocrit 44.9 % (41.0-53.0); Hemoglobin 15.1 g/dL (13.5-16.0); Immature Granulocytes Auto 0.09 Thou/mm3 (0.00-0.00); Lymphocytes # (Auto) 2.0 Thou/mm3 (1.0-4.8); Lymphocytes % (Auto) 18 % (10-50); Mean Corpuscular HGB Conc 33.6 g/dl (31.0-37.0); Mean Corpuscular Hemoglobin 32.5 pg (25.0-35.0); Mean Corpuscular Volume 97 fL (80-100); Monocytes # (Auto) 0.8 Thou/mm3 (0.0-0.8); Monocytes % (Auto) 7 % (0-12); Neutrophils # (Auto) 8.0 Thou/mm3 (1.8-7.7); Neutrophils % (Auto) 72 % (37-80); Nucleated Red Blood Cell # 0.00 Thou/mm3 (0.00-0.00); Nucleated Red Blood Cell % 0 /100 WBC (0); Platelet Count 184 Thou/mm3 (140-440); RDW Standard Deviation 46.1 fL (35.1-43.9); Red Blood Count 4.65 Miln/mm3 (4.50-5.90); White Blood Count 11.0 Thou/mm3 (3.8-10.6)
[2025-05-29 10:47] LABS: INR 1.0 (0.9-1.3); Partial Thromboplastin Time 26.8 Seconds (22.0-36.0); Prothrombin Time 11.0 Seconds (9.0-12.2)
[2025-05-29 10:51] LABS: Alanine Aminotransferase 24 U/L (10-49); Albumin, Serum 4.0 gm/dL (3.5-5.0); Albumin/Globulin Ratio 2.2 (1.2-2.2); Alkaline Phosphatase 61 U/L (46-116); Anion Gap 11 (7-16); Aspartate Amino Transferase 15 U/L (0-34); BUN/Creatinine Ratio 21 Ratio (12-20); Bilirubin,Total 0.5 mg/dL (0.3-1.2); Blood Urea Nitrogen 17 mg/dL (9-23); Calcium 9.6 mg/dL (8.3-10.6); Calcium (Corrected) 9.6 mg/dL (8.5-10.1); Carbon Dioxide 28.1 mMol/L (20.0-31.0); Chloride 108 mMol/L (98-107); Creatinine (Component) 0.8 mg/dL (0.6-1.3); Estimated Creatinine Clearance 118.0 mL/min (>60); Globulin 1.8 gm/dL (2.3-3.5); Glucose 146 mg/dL (74-106); Osmolality,Calculated 296 (275-295); Potassium 4.5 mMol/L (3.4-5.1); Sodium 147 mMol/L (136-145); Total Protein 5.8 gm/dL (5.7-8.2); eGFR > 60 See Note
[2025-06-05] VITALS (13 sets, daily range): BP systolic 115–147; BP diastolic 77–93; PULSE 72–90; RESP 13–24; TEMP 36.1–36.6; O2SAT 92–99; BMI 43.2
[2025-06-05] MEDS: ACETAMINOPHEN 325 MG TABLET 650 MG PO (09:07)
[2025-06-05] MEDS: PREGABALIN 75 MG CAPSULE PO (09:07)
[2025-06-05] MEDS: MELOXICAM 7.5 MG TABLET PO (09:07)
--- NOTE | 2025-06-05 12:53 | SUR.PHASEI ---
pt arrived to PACU via gurney with nasal airway present, breathing unlabored, dressing to right lower extremity clean, dry, and intact, report from Mireya MCKEON and Dr Grullon
--- NOTE | 2025-06-05 13:20 | SUR.PHASEI ---
pt tolerating oral fluids without difficulty swallowing or n/v
--- NOTE | 2025-06-05 14:07 | SUR.PHASEII ---
pt awake, alert, able to follow commands, breathing unlabored, dressing to right lower extremity clean, dry, and intact, circulation to bilateral toes WNL, awaiting orders from Dr Jones
--- NOTE | 2025-06-05 14:14 | XR_ITS ---
Examination: Right knee 2 views Technique one AP lateral right knee 2 views Date and time: June 05, 2025 1429 hours INDICATIONS: Postop right knee replacement FINDINGS: Total right knee arthroplasty. Satisfactory alignment. No fracture IMPRESSION: Total right knee arthroplasty with satisfactory alignment
--- NOTE | 2025-06-05 14:15 | ESOP_ITS ---
Date of Procedure 06/05/25 Pre Op Diagnosis right knee ostearthritis Post Op Diagnosis right knee ostearthritis Procedure right total knee replacement shilo Findings full thickness cartilage loss and osteophytes Procedure Description Indication: The patient is a 54 year old who has a long history of right knee pain. X-rays show degenerative arthritis involving the knee. Over the past several years the patient has had increasing pain, progressive limitation in function. He has failed conservative measures including activity modification, physical therapy, injections, anti-inflammatories, and assistive devices. After a lengthy discussion of the risks and benefits, the patient presents now for total knee replacement. The nature and purpose of the total knee replacement, alternative method(s) of treatment, the material risks involved, and the possibility of complications were fully explained to the patient. The patient was told the most common risks and complications associated with a total knee replacement include, but are not limited to blood clots in the leg, fatal pulmonary embolism, dislocation of the prosthesis, intraoperative and postoperative fractures of the femur or tibia, infection, failure of the prosthesis or grafting materials, complications from anesthesia, reactions to blood transfusions, postoperative leg length inequality, instability of the knee replacement, nerve damage or injury, vascular injury, delayed wound healing, infections, other injury or even . In addition, there are risks associated with anesthesia given during this operation, temporary or permanent numbness on the skin lateral to the incision can be a complication unique to total knee surgery, and kneeling can be painful after knee replacement surgery. Also, the patient was told that after undergoing a total knee replacement there may still be pain or disability. We discussed with the patient that we will be using a robot-assisted technology. We discussed that there is a possibility of converting to manual instrumentation. The patient was informed that the success of this operation in part depends upon the mechanical devices which are going to be implanted and that these devices can fail or malfunction, and may need to be repaired or replaced and there are no guarantees as to the longevity of this device or its part and that it or its parts could fail prematurely. Finally, the patient was asked to follow completely and fully with all advice and recommended treatments, and that recovery and ultimate outcome are affected by their compliance with recommended treatment. Surgical technique: Patient was marked and consented in the pre-operative area. The patient was brought to the operating room and placed on the operating table in a supine position. Prior to positioning, a timeout procedure was performed between the surgeon, the anesthesiologist, and the nursing staff where the patient and the operative side were identified and confirmed. After adequate general anesthetic was obtained, the right lower extremity was prepped and draped in the usual sterile fashion. A weight based dose of Cefazolin were administered within 1 hour prior to incision. The robot was preregistered and calirated before the incision. The extremity was exsanguinated with an esmarch badge and tourniquet inflated to 250mmHg. A midline incision was made. A median parapatellar arthrotomy was made. The patella was subluxed laterally. A medial release was performed to expose the medial tibia. His femoral and tibial pins were placed through an intra incisional manner for both cases. Every effort was made to ensure that the distalmost aspect of the pin was hung in the second cortex. The arrays were then tightened several times to ensure that it was fixed for the remainder of the case. Both femoral and tibial checkpoints were then placed. We then went through the registration process of the bone. We then assessed the knee deformity and attempted to correct it. We also used the robot to aid in judging laxity in both extension and flexion. Final based on laxity and alignment we changed the preoperative assessment to obtain proper proper implant positioning and to correct deformity. Attention was then placed to the tibia. We made a tibial cut using the robot ensuring that both the MCL and the patella tendon were protected with retractors. We then went to the femur and made the posterior cut followed by the anterior cut and the anterior chamfer. The bone was then removed and we made a distal femur cut and a posterior chamfer cut. We verified all cuts. A trial reduction was performed with a size 5 femoral component and a size 4 keeled tibial component. TThe patella tracked centrally, and no lateral retinacular release was necessary. The trial implants were removed. The arrays, pins, and checkpoints were all removed. We performed a verification that all pins were removed. The cut bone surfaces were lavaged. A size 5 right femoral component, a size 4 keeled tibial component were impacted into position. The knee was felt to be well balanced in the sagittal and coronal plane. The final 4x10 mm cruciate- substituting articular insert was impacted into the tibial tray. The knee was brought out to full extension, flexed up to 120 degrees. It was stable to varus and valgus stress and appropriately balanced in flexion and extension. The wounds were copiously irrigated following deflation of tourniquet. The medial retinaculum was reapproximated with #1 vicryl and quill. The subcutaneous tissues were closed with 0 and 2-0 interrupted Vicryl. The skin was closed with 3-0 Monofilament V loc suture. A sterile dressing was applied. The patient was transferred to a bed and brought to recovery in stable condition. The patient tolerated the procedure well. There were no intraoperative complications. Sponge and needle counts were correct times 2. As the attending surgeon, I attest I was present and performed the entire operation. Grafts/Implants Size 5 CR Femur Size 4 Tibia 10mm poly CS Anesthesia GETA and spinal Implants vidal Pathology / specimen None Estimated Blood Loss 150 Condition Stable Disposition same day Surgeon Freddy Jones MD Surgical Staff Operation Date: 06/05/25 12:45 Case Staff Anesthesiologist: Erickson Grullon RNvice president payer: Randi Pinzon
--- NOTE | 2025-06-05 14:20 | SUR.PHASEII ---
xray at bedside
--- NOTE | 2025-06-05 14:50 | SUR.PHASEII ---
PT at bedside
--- NOTE | 2025-06-05 15:15 | SUR.PHASEII ---
pt returned to [place], [place] to discharge per [facility]
--- NOTE | 2025-06-05 15:35 | SUR.PHASEII ---
pt awake, alert, able to follow commands, breathing unlabored, dressing to right knee clean, dry, and intact, pedal pulses present/equal bilaterally, circulation to bilateral toes WNL, pt able to tolerate oral fluids without difficulty swallowing or n/v, discharge instructions given using telephone drawing kiln supervisor with present, all questions answered, pt discharged via wheelchair with all belongings and copies of discharge paperwork.
--- NOTE | 2025-06-11 15:18 | ESPR_ITS ---
Documentation for date of: 06/11/25 POST ANESTHESIA NOTE: Patient had GETA and R adductor canal block for R TKA on 06/05/25. I just called and spoke with him on the phone via product marketing intern and he denied any problems from anesthesia. Erickson Grullon MD Anesthesia Progress Note Progress Note Most recent Vital Signs: Last Vital Signs Temp 97.8 F 06/05/25 15:15 Pulse 86 06/05/25 15:15 Resp 20 06/05/25 15:15 BP 122/78 06/05/25 15:15 Pulse Ox 98 06/05/25 15:15 O2 Flow Rate 3 06/05/25 13:08
== END 2025-06-05 15:35 | disposition home or self-care (01) ==
PROVIDERS: Anesthesiology; PCP Registered Nurse Community Health; Referring Provider Orthopaedic Surgery Adult Reconstructive Orthopaedic Surgery; Visit Provider Orthopaedic Surgery Adult Reconstructive Orthopaedic Surgery
PROC: (CPT 27447; principal; 2025-06-05 12:30)
DX: M17.11 Unilateral primary osteoarthritis, right knee (principal); M25.761 Osteophyte, right knee
CPT/HCPCS: 27447; 20985; 36415; 73560; 80053; 85025; 85610; 85730; 97162; A4217; C1713; C1776; J0690; J1100; J1171; J2250; J2371; J2704; J2710; J2765; J2795; J3010; J3490; J7999; A4648; A4649; A9270; J1596; J1805

== ENCOUNTER 2025-06-20 09:57 | Outpatient (AMB) | payer MEDICAID, SELFPAY ==
--- NOTE | 2025-06-20 10:09 | PD.ORTHCLVIS ---
Vital signs 06/20/25 10:11 Height 1.57 m Height Method Measured Weight 103.532 kg Weight Measurement Method Standing Scale BMI 42.0 BP 113/83 Blood Pressure Source Automatic Cuff Blood Pressure Location Left Upper Arm Position Sitting Respiration 19 Pulse 100 Pulse Source Monitor Temp 93.5 F L Temp Source Temporal Artery Scan Pulse Oximetry (%) 93 L Oxygen Delivery Method Room Air Med/Allergies Allergies & Medications Allergies No Known Allergies Allergy (Verified 06/20/25 10:12) Medication Reconciliation atorvastatin 40 mg tablet 40 mg PO HS 09/25/22 [History Confirmed 06/20/25] insulin glargine 100 unit/mL (3 mL) subcutaneous pen (Lantus Solostar U-100 Insulin) 25 unit subcut HS 09/25/22 [History Confirmed 06/20/25] amlodipine 10 mg tablet 10 mg PO HS 05/29/25 [History Confirmed 06/20/25] empagliflozin 25 mg tablet (Jardiance) 25 mg PO QAM 05/29/25 [History Confirmed 06/20/25] ergocalciferol (vitamin D2) 1,250 mcg (50,000 unit) capsule 1,250 mcg PO QWEEK 05/29/25 [History Confirmed 06/20/25] meloxicam 15 mg tablet 15 mg PO HS 05/29/25 [History Confirmed 06/20/25] metformin 1,000 mg tablet 1,000 mg PO BID 05/29/25 [History Confirmed 06/20/25] omeprazole 40 mg capsule,delayed release 40 mg PO DAILY 05/29/25 [History Confirmed 06/20/25] tirzepatide 5 mg/0.5 mL subcutaneous pen injector (Mounjaro) 5 mg subcut QWEEK 05/29/25 [History Confirmed 06/20/25] acetaminophen 500 mg tablet (Acetaminophen Extra Strength) 1,000 mg (2 x 500 mg) PO Q6H PRN pain #90 tabs 06/05/25 [Rx Confirmed 06/20/25] aspirin 81 mg tablet,delayed release 81 mg PO BID #60 tabs 06/05/25 [Rx Confirmed 06/20/25] doxycycline hyclate 100 mg tablet 100 mg PO BID #14 tabs 06/05/25 [Rx Confirmed 06/20/25] gabapentin 300 mg capsule 300 mg PO .qhs #30 caps 06/05/25 [Rx Confirmed 06/20/25] sennosides 8.6 mg-docusate sodium 50 mg tablet (Senna-S) 1 tab-cap PO QDAY #30 tabs 06/05/25 [Rx Confirmed 06/20/25] acetaminophen 500 mg tablet (Acetaminophen Extra Strength) 1,000 mg (2 x 500 mg) PO Q6H PRN pain #90 tabs 06/12/25 [Rx Confirmed 06/20/25] oxycodone 5 mg tablet 5 mg PO Q6H PRN pain #28 tabs 06/12/25 [Rx Confirmed 06/20/25] oxycodone 5 mg tablet 5 mg PO Q6H PRN pain #28 tabs 06/20/25 [Rx] Exam Exam Patient is in no acute distress and is cooperative with the examination today. Patient has a normal mood and affect. Breathing is nonlabored. In no respiratory distress. Bilateral extremities were evaluated and demonstrates sensation intact to light touch. Palpable pedal pulses are present. No significant edema is present. Right knee incisions clean dry intact. Range of motion 0 to 95 degrees Assessment and Plan Problem List (1) Degenerative arthritis of knee, bilateral: Status: Acute Plan: Patient is a pleasant 53-year-old male with bilateral knee pain and bilateral knee arthritis. His hemoglobin A1c is 7.9. He is doing well status post right total knee replacement. I will see him back in approximately 4 weeks. We recommend the patient start outpatient physical therapy Office Procedures GNS Level of Care Nursing/Assessment Patient Status: Established Patient Nursing Assessment/Reassesment: Medication Reconciliation, Orthostatic Vitals, Update PMH in EMR and Vital Signs Coordination of Care: Complex Care and Chronic Disease 1-5, Education Complex Pt/Fam, Consent,records obtained, informed consent, Results/Orders obtained and Staff clarify orders Special Needs: Language special needs Established Patient Charge Established Patient Point Assignment: 105 Established Patient Point Charge: EP Level 3 (80-115) MA Intake Visit Data Collection New Patient or Established: Established Patient (seen at [facility] within 3 years) Reason for Visit:: 2 WEEK POST OP RIGHT TKA Seen by Clinical Staff ONLY (RN/MA): No Verbal consent obtained for Telemed visit?: No Patient Services Representative Required: Yes PCP or OBGYN visit in last 3 months: No Hx Now: No Do You Feel Safe at Home: Yes Authorities Contacted: N/A Questionairres Past Medical History Past Medical History Have you ever been diagnosed with any of the following: Neurological Problems Cerebrovascular Accident (CVA): No Transient Ischemic Attacks (TIA): No Dementia: No Alzheimer's Disease: No Parkinson's Disease: No Brain Tumor: No Meningitis: No Seizures: No Epilepsy: No Multiple Sclerosis: No Cerebral Palsy: No Amyotrophic Lateral Sclerosis (ALS/Laverne Gehrig's): No Guillain-[place] Syndrome: No Spina Bifida: No Paralysis: No Peripheral Neuropathy: No Kang's Palsy: No Subdural Hematoma: No Migraine: No Head Trauma: No Spinal Cord Injury: No Traumatic Brain Injury: No Cardiology Problems Myocardial Infarction: No Cardiac Arrhythmia: No Atrial Fibrillation: No Angina: No Heart Murmur: No Coronary Artery Disease: No Atherosclerotic Heart Disease: No Peripheral Vascular Disease: No Hypercholesterolemia: Yes Aneurysm: No Congestive Heart Failure: No Congenital Heart Disease: No Valvular Heart Disease: No Rheumatic Fever: No Cardiomyopathy: No Edema: Yes (feet get swollen in the evening) Pericarditis: No Cellulitis: No Deep Vein Thrombosis: No Hypertension: Yes Hypotension: No Varicose Veins: No Respiratory Problems Chronic Obstructive Pulmonary Disease (COPD): No Asthma: No Bronchitis: No Emphysema: No Pneumonia: No Pulmonary Fibrosis: No Tuberculosis: No Pulmonary Embolism: No Pulmonary Edema: No Sleep Apnea: No CPAP Dependent: No Respiratory Aspiration: No Dyspnea: No Orthopnea: No Hx Cough: No Cough: No Wheezing: No Chest Deformities: No Smoking: Yes (15 YEARS) Smoking Cessation Counseling: No Smoking Exposure: Yes Tobacco Use: No Clubbing: No Exposure to Respiratory Irritants: No Intubation: No Stomache/Intestinal Problems Liver Cancer: No Hepatitis: No Cirrhosis: No Pancreatic Cancer: No Pancreatitis: No Celiac Disease: No Gall Bladder Disease: No Gastrointestinal Bleed: No Esophageal Varices: No Sidhu's Esophagus: No Colitis: No Ulcerative Colitis: No Diverticulitis: No Diverticulosis: No Ulcer: No Colorectal Cancer: No Irritable Bowel: No Crohn's Disease: No Obstructive Bowel: No Hiatal Hernia: No Hemorrhoids: No Gastroesophageal Reflux Disease: Yes Polyps: No Obesity: Yes Genital/Urinary Problems Chronic Kidney Disease: No Renal Disease: No Kidney Stones: No Polycystic Kidney Disease: No Neurogenic Bladder: No Inguinal Hernia: No Dialysis: No Prostate Cancer: No Benign Prostatic Hyperplasia: No Reproductive Problems Breast Cancer: No Fibroids: No Genital Herpes: No Gonorrhea: No Syphilis: No Testicular Cancer: No Musculoskeletal Problems Muscular Dystrophy: No Myasthenia Gravis: No Marfan's Syndrome: No Bone Cancer: No Arthritis: Yes Rheumatoid Arthritis: No Osteoporosis: No Degenerative Disk Disease: No Gout: No Scoliosis: No Carpal Tunnel Syndrome: No Fibromyalgia: No Fractures: No Degenerative Joint Disease: No Osteomyelitis: No Poliovirus: No Head,Eye,Nose,Throat Problems Cataracts: No Glaucoma: No Blind: No Retinal Detachment: No Macular Degeneration: No Chronic Ear Infections: No Deafness: No Eye Prosthesis: No Endocrine Problems Diabetes Mellitus Type 1: No Diabetes Mellitus Type 2: Yes Hypoglycemia: No Granville's Syndrome: No Henrique's Disease: No Hyperthyroidism: No Hypothyroidism: No Thyroid Cancer: No Parathyroid Disease: No Pituitary Disease: No Systemic Lupus Erythematosus: No Syndrome of Inappropriate Antidiuretic Hormone: No Adrenal Disease: No Graves' Disease: No Blood Problems Anemia: No Leukemia: No Hemophilia: No Thalassemia: No Sickle Cell Disease: No Clotting Problems: No Psychologic Problems Schizophrenia: No Recreational Drug Use: No Bipolar Disorder: No Depression: Yes Anxiety: Yes Behavior Problems: No Self-Mutilation: No Attention Deficit Disorder: No Attention Deficit Hyperactivity Disorder: No Depression: No Post Traumatic Stress Disorder: No Eating Disorder: No Other Problems Hospitalization: Yes (tooth infection, left hand surgery) Autoimmune Disease: No Down Syndrome: No Autism: No Developmental Delay: No Cosmetic Surgery: No Shingles: No Falls: No Blood Transfusions: No Blood Transfusion Reaction: No Anesthesia Reactions: No Organ Transplant: No Chemotherapy: No Radiation Therapy: No Hyperbaric Therapy: No MRSA: No VRSA: No Vancomycin-Resistant Enterococci: No Human Immunodeficiency Virus (HIV): No Chicken Pox: Yes Measles: No Mumps: No Rubella (Sami Measles): No Pertussis: No Klebsiella Pneumoniae Carbapenemase Producing Bacteria: No Clostridium Difficile: No Hepatitis A: No Hepatitis B: No Hepatitis C: No Communicable Disease: No Cancer: No Lung Cancer: No Surgical History Angioplasty: No Appendectomy: No Bariatric Surgery: No Breast Surgery: No Cancer Surgery: No Carotid Endarterectomy: No Cholecystectomy: No Colectomy: No Colostomy: No Coronary Artery Bypass Graft: No Valve Replacement: No Herniorrhaphy: No Total Hip Replacement: No Total Knee Replacement: No Pacemaker: No Sinus Surgery: No Splenectomy: No Thyroidectomy: No Ureter Stent: No Subjective Visit Visit for: follow up visit, post op #1 and knee Immunization / Flu Flu Vaccine in the Last 12 Months: No Flu Vaccine Exclusion Criteria: No Exclusion Criteria History of Present Illness Chief complaint: 2 WEEK POST OP RIGHT TKA Date of 1st surgery (if applicable): 06/05/2025 Patient is doing well postop status post right total knee replacement. He reports that he is doing well. 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
[2025-06-20 10:11] VITALS: BP 113/83; PULSE 100; RESP 19; TEMP 34.2; O2SAT 93; BMI 42.0
== END 2025-06-20 10:25 | disposition home or self-care (01) ==
PROVIDERS: PCP Registered Nurse Community Health; Referring Provider Registered Nurse Community Health; Supervising Provider Orthopaedic Surgery Adult Reconstructive Orthopaedic Surgery; Visit Provider Orthopaedic Surgery Adult Reconstructive Orthopaedic Surgery
DX: M17.0 Bilateral primary osteoarthritis of knee (principal); M25.562 Pain in left knee; M25.561 Pain in right knee; Z96.651 Presence of right artificial knee joint; I10 Essential (primary) hypertension; E78.00 Pure hypercholesterolemia, unspecified; K21.9 Gastro-esophageal reflux disease without esophagitis
CPT/HCPCS: 99213; G0463

== ENCOUNTER 2025-07-04 07:56 | Outpatient (AMB) | payer MEDICAID, SELFPAY ==
--- NOTE | 2025-07-04 08:11 | PD.ORTHCLVIS ---
Vital signs 07/04/25 08:15 Height 1.57 m Height Method Measured Weight 103.022 kg Weight Measurement Method Standing Scale BMI 41.8 BP 112/78 Blood Pressure Source Automatic Cuff Blood Pressure Location Left Upper Arm Position Supine Respiration 18 Pulse 100 Pulse Source Monitor Temp 97.9 F Temp Source Temporal Artery Scan Pulse Oximetry (%) 92 L Oxygen Delivery Method Room Air Med/Allergies Allergies & Medications Allergies No Known Allergies Allergy (Verified 07/04/25 08:16) Medication Reconciliation atorvastatin 40 mg tablet 40 mg PO HS 09/25/22 [History Confirmed 07/04/25] insulin glargine 100 unit/mL (3 mL) subcutaneous pen (Lantus Solostar U-100 Insulin) 25 unit subcut HS 09/25/22 [History Confirmed 07/04/25] amlodipine 10 mg tablet 10 mg PO HS 05/29/25 [History Confirmed 07/04/25] empagliflozin 25 mg tablet (Jardiance) 25 mg PO QAM 05/29/25 [History Confirmed 07/04/25] ergocalciferol (vitamin D2) 1,250 mcg (50,000 unit) capsule 1,250 mcg PO QWEEK 05/29/25 [History Confirmed 07/04/25] meloxicam 15 mg tablet 15 mg PO HS 05/29/25 [History Confirmed 07/04/25] metformin 1,000 mg tablet 1,000 mg PO BID 05/29/25 [History Confirmed 07/04/25] omeprazole 40 mg capsule,delayed release 40 mg PO DAILY 05/29/25 [History Confirmed 07/04/25] tirzepatide 5 mg/0.5 mL subcutaneous pen injector (Mounjaro) 5 mg subcut QWEEK 05/29/25 [History Confirmed 07/04/25] acetaminophen 500 mg tablet (Acetaminophen Extra Strength) 1,000 mg (2 x 500 mg) PO Q6H PRN pain #90 tabs 06/05/25 [Rx Confirmed 07/04/25] aspirin 81 mg tablet,delayed release 81 mg PO BID #60 tabs 06/05/25 [Rx Confirmed 07/04/25] doxycycline hyclate 100 mg tablet 100 mg PO BID #14 tabs 06/05/25 [Rx Confirmed 07/04/25] gabapentin 300 mg capsule 300 mg PO .qhs #30 caps 06/05/25 [Rx Confirmed 07/04/25] sennosides 8.6 mg-docusate sodium 50 mg tablet (Senna-S) 1 tab-cap PO QDAY #30 tabs 06/05/25 [Rx Confirmed 07/04/25] acetaminophen 500 mg tablet (Acetaminophen Extra Strength) 1,000 mg (2 x 500 mg) PO Q6H PRN pain #90 tabs 06/12/25 [Rx Confirmed 07/04/25] oxycodone 5 mg tablet 5 mg PO Q6H PRN pain #28 tabs 06/12/25 [Rx Confirmed 07/04/25] oxycodone 5 mg tablet 5 mg PO Q6H PRN pain #28 tabs 06/20/25 [Rx Confirmed 07/04/25] cyclobenzaprine 5 mg tablet 5 mg PO QHS PRN muscle spasm #30 tabs 07/04/25 [Rx] Exam Exam Patient is in no acute distress and is cooperative with the examination today. Patient has a normal mood and affect. Breathing is nonlabored. In no respiratory distress. Bilateral extremities were evaluated and demonstrates sensation intact to light touch. Palpable pedal pulses are present. No significant edema is present. Right knee incisions clean dry intact. Range of motion 0 to 95 degrees Assessment and Plan Problem List (1) Degenerative arthritis of knee, bilateral: Status: Acute Plan: Patient is a pleasant 53-year-old male with bilateral knee pain and bilateral knee arthritis. His hemoglobin A1c is 7.9. He is doing well status post right total knee replacement. I will see him back in approximately 8 weeks. He is doing well with outpatient pt. Office Procedures GNS Level of Care Nursing/Assessment Patient Status: Established Patient Nursing Assessment/Reassesment: Medication Reconciliation, Orthostatic Vitals, Update PMH in EMR and Vital Signs Coordination of Care: Complex Care and Chronic Disease 1-5, Education Complex Pt/Fam, Consent,records obtained, informed consent, Results/Orders obtained and Staff clarify orders Special Needs: Language special needs Established Patient Charge Established Patient Point Assignment: 105 Established Patient Point Charge: EP Level 3 (80-115) MA Intake Visit Data Collection New Patient or Established: Established Patient (seen at [facility] within 3 years) Reason for Visit:: S/ TKA CONCERNS Seen by Clinical Staff ONLY (RN/MA): No Verbal consent obtained for Telemed visit?: No A R Collections Rep Required: Yes PCP or OBGYN visit in last 3 months: No Hx Now: No Do You Feel Safe at Home: Yes Authorities Contacted: N/A Questionairres Past Medical History Past Medical History Have you ever been diagnosed with any of the following: Neurological Problems Cerebrovascular Accident (CVA): No Transient Ischemic Attacks (TIA): No Dementia: No Alzheimer's Disease: No Parkinson's Disease: No Brain Tumor: No Meningitis: No Seizures: No Epilepsy: No Multiple Sclerosis: No Cerebral Palsy: No Amyotrophic Lateral Sclerosis (ALS/Laverne Gehrig's): No Guillain-[place] Syndrome: No Spina Bifida: No Paralysis: No Peripheral Neuropathy: No Kang's Palsy: No Subdural Hematoma: No Migraine: No Head Trauma: No Spinal Cord Injury: No Traumatic Brain Injury: No Cardiology Problems Myocardial Infarction: No Cardiac Arrhythmia: No Atrial Fibrillation: No Angina: No Heart Murmur: No Coronary Artery Disease: No Atherosclerotic Heart Disease: No Peripheral Vascular Disease: No Hypercholesterolemia: Yes Aneurysm: No Congestive Heart Failure: No Congenital Heart Disease: No Valvular Heart Disease: No Rheumatic Fever: No Cardiomyopathy: No Edema: Yes (feet get swollen in the evening) Pericarditis: No Cellulitis: No Deep Vein Thrombosis: No Hypertension: Yes Hypotension: No Varicose Veins: No Respiratory Problems Chronic Obstructive Pulmonary Disease (COPD): No Asthma: No Bronchitis: No Emphysema: No Pneumonia: No Pulmonary Fibrosis: No Tuberculosis: No Pulmonary Embolism: No Pulmonary Edema: No Sleep Apnea: No CPAP Dependent: No Respiratory Aspiration: No Dyspnea: No Orthopnea: No Hx Cough: No Cough: No Wheezing: No Chest Deformities: No Smoking: Yes (15 YEARS) Smoking Cessation Counseling: No Smoking Exposure: Yes Tobacco Use: No Clubbing: No Exposure to Respiratory Irritants: No Intubation: No Stomache/Intestinal Problems Liver Cancer: No Hepatitis: No Cirrhosis: No Pancreatic Cancer: No Pancreatitis: No Celiac Disease: No Gall Bladder Disease: No Gastrointestinal Bleed: No Esophageal Varices: No Sidhu's Esophagus: No Colitis: No Ulcerative Colitis: No Diverticulitis: No Diverticulosis: No Ulcer: No Colorectal Cancer: No Irritable Bowel: No Crohn's Disease: No Obstructive Bowel: No Hiatal Hernia: No Hemorrhoids: No Gastroesophageal Reflux Disease: Yes Polyps: No Obesity: Yes Genital/Urinary Problems Chronic Kidney Disease: No Renal Disease: No Kidney Stones: No Polycystic Kidney Disease: No Neurogenic Bladder: No Inguinal Hernia: No Dialysis: No Prostate Cancer: No Benign Prostatic Hyperplasia: No Reproductive Problems Breast Cancer: No Fibroids: No Genital Herpes: No Gonorrhea: No Syphilis: No Testicular Cancer: No Musculoskeletal Problems Muscular Dystrophy: No Myasthenia Gravis: No Marfan's Syndrome: No Bone Cancer: No Arthritis: Yes Rheumatoid Arthritis: No Osteoporosis: No Degenerative Disk Disease: No Gout: No Scoliosis: No Carpal Tunnel Syndrome: No Fibromyalgia: No Fractures: No Degenerative Joint Disease: No Osteomyelitis: No Poliovirus: No Head,Eye,Nose,Throat Problems Cataracts: No Glaucoma: No Blind: No Retinal Detachment: No Macular Degeneration: No Chronic Ear Infections: No Deafness: No Eye Prosthesis: No Endocrine Problems Diabetes Mellitus Type 1: No Diabetes Mellitus Type 2: Yes Hypoglycemia: No Mariah's Syndrome: No Greenwood's Disease: No Hyperthyroidism: No Hypothyroidism: No Thyroid Cancer: No Parathyroid Disease: No Pituitary Disease: No Systemic Lupus Erythematosus: No Syndrome of Inappropriate Antidiuretic Hormone: No Adrenal Disease: No Graves' Disease: No Blood Problems Anemia: No Leukemia: No Hemophilia: No Thalassemia: No Sickle Cell Disease: No Clotting Problems: No Psychologic Problems Schizophrenia: No Recreational Drug Use: No Bipolar Disorder: No Depression: Yes Anxiety: Yes Behavior Problems: No Self-Mutilation: No Attention Deficit Disorder: No Attention Deficit Hyperactivity Disorder: No Depression: No Post Traumatic Stress Disorder: No Eating Disorder: No Other Problems Hospitalization: Yes (tooth infection, left hand surgery) Autoimmune Disease: No Down Syndrome: No Autism: No Developmental Delay: No Cosmetic Surgery: No Shingles: No Falls: No Blood Transfusions: No Blood Transfusion Reaction: No Anesthesia Reactions: No Organ Transplant: No Chemotherapy: No Radiation Therapy: No Hyperbaric Therapy: No MRSA: No VRSA: No Vancomycin-Resistant Enterococci: No Human Immunodeficiency Virus (HIV): No Chicken Pox: Yes Measles: No Mumps: No Rubella ([place] Measles): No Pertussis: No Klebsiella Pneumoniae Carbapenemase Producing Bacteria: No Clostridium Difficile: No Hepatitis A: No Hepatitis B: No Hepatitis C: No Communicable Disease: No Cancer: No Lung Cancer: No Surgical History Angioplasty: No Appendectomy: No Bariatric Surgery: No Breast Surgery: No Cancer Surgery: No Carotid Endarterectomy: No Cholecystectomy: No Colectomy: No Colostomy: No Coronary Artery Bypass Graft: No Valve Replacement: No Herniorrhaphy: No Total Hip Replacement: No Total Knee Replacement: No Pacemaker: No Sinus Surgery: No Splenectomy: No Thyroidectomy: No Ureter Stent: No Subjective Visit Visit for: follow up visit, post op #1 and knee Immunization / Flu Flu Vaccine in the Last 12 Months: No Flu Vaccine Exclusion Criteria: No Exclusion Criteria History of Present Illness Chief complaint: S/P TKA CONCERNS Date of 1st surgery (if applicable): 06/05/2025 Patient is doing well postop status post right total knee replacement. He reports that he is doing well. He is using a cane. He had nerve pain last time that has went away. 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
[2025-07-04 08:15] VITALS: BP 112/78; PULSE 100; RESP 18; TEMP 36.6; O2SAT 92; BMI 41.8
== END 2025-07-04 08:40 | disposition home or self-care (01) ==
LOC: HODSRG 07:56
PROVIDERS: Supervising Provider Orthopaedic Surgery Adult Reconstructive Orthopaedic Surgery; Visit Provider Orthopaedic Surgery Adult Reconstructive Orthopaedic Surgery
DX: M17.0 Bilateral primary osteoarthritis of knee (principal); M25.562 Pain in left knee; M25.561 Pain in right knee; Z96.651 Presence of right artificial knee joint; I10 Essential (primary) hypertension; E78.00 Pure hypercholesterolemia, unspecified; K21.9 Gastro-esophageal reflux disease without esophagitis; E11.9 Type 2 diabetes mellitus without complications; E66.9 Obesity, unspecified; Z68.41 Body mass index [BMI] 40.0-44.9, adult
CPT/HCPCS: 99213; G0463

== ENCOUNTER 2025-07-11 09:00 | Outpatient (RCR) | payer MEDICAID, SELFPAY ==
--- NOTE | 2025-06-28 13:17 | PTNOTE_ITS ---
PT OP Initial Eval Patient Information Outpatient Physical Therapy Treatment Date: 06/28/25 Visit Reasons: RT TKA Medical Diagnosis: Right Knee OA; Right Knee Pain Treatment Dx #1: Right Knee Mobility Deficits Treatment Dx #2: Difficulty Walking Start of Care: 06/28/25 Date of Onset: 06/05/25 Smoking Status Smoking Status: Never smoker Initial Assessment Subjective: Pt is a 54 y/o male s/p right TKA 06/05/25 due to knee OA. Pt still has pain 5/10 with activities. Pt has difficulty with walking, standing, chores, self care, balance, stairs, and performing recreational activities. Pt also mentioned his left knee is bone on bone and will be pending surgery once he feels better from the right knee. Objective: Right Knee AROM: -16 deg to 121 deg Right Knee MMTs: grossly 3/5 Right Hip MMTs: grossly 3/5 SLS: NT Assessment: Pt demonstrate right knee mobility and strength deficits s/p TKA leading to difficulty with ADLs. 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 1) Decrease knee extension lag to -8 deg in 12 wks to be improve gait dinkey mechanic 2) Increase right knee MMTs grossly to 4/5 in 12 wks to be able to perform stairs and steps 3) Increase right hip MMTs grossly to 4-/5 in 12 wks to be able to walk more than 30 mins 4) Decrease knee pain to 2/10 in 12 wks to be able to perform chores 5) Indep with HEP Treatment Plan 1) Manual Therapy 2) Therapeutic Activities 3) Therapeutic Exercises 4) Modalities (ice, heat) 5) Balance Training 6) Gait Training Frequency and Duration: 2 x wk for 12 wks Certification Dates: 06/28/25 to 09/27/25 Procedure Charges OP PT Eval Mod Complex 30 minutes: Yes
--- NOTE | 2025-07-01 15:57 | PT.ODAYNRPT ---
PT Outpatient Daily Note OP Daily Note Outpatient Physical Therapy Treatment Date: 07/01/25 Visit Reasons: RT TKA Subjective: Pt reports r knee is doing ok, is using cane more so due to the L knee pain. Pt shared once he recovers from R TKA the plan is to also have L TKA. Objective: Please see flow sheet for ther ex list. Assessment: Pt demonstrates knee extension lag with R knee SLR exercise likely due to poor quad strength. Plan: Continue with poC. Length of Time (minutes) of Treatment: 30 Minutes Procedure Charges Therapeutic Exercise 30 minutes: Yes
--- NOTE | 2025-07-03 09:37 | PT.ODAYNRPT ---
PT Outpatient Daily Note OP Daily Note Outpatient Physical Therapy Treatment Date: 07/03/25 Visit Reasons: RT TKA Subjective: Pt reports R knee is doing ok, notices he can bend it pretty goo. Objective: Please see flow sheet for ther ex list. Assessment: Verbal and tactile cues given for pt to perform calf stretch avoiding toe out foot positioning. Plan: Continue with poC. Length of Time (minutes) of Treatment: 30 Minutes Procedure Charges Therapeutic Exercise 30 minutes: Yes
--- NOTE | 2025-07-11 10:32 | PT.ODAYNRPT ---
PT Outpatient Daily Note OP Daily Note Outpatient Physical Therapy Treatment Date: 07/11/25 Visit Reasons: RT TKA Subjective: Pt's knee is feeling better. Pt denies of pain. Pt feels safe walking with a cane. Objective: Please see flow chart for list of ther ex performed Assessment: difficulty understanding hip abduction. verbal and tactile cues to correct hip abduction form. Pt is progressing well with closed chain exercises with minimal pain reported Plan: Continue with PT Length of Time (minutes) of Treatment: 30 Minutes Procedure Charges Therapeutic Exercise 30 minutes: Yes
== END 2025-07-23 23:59 | disposition home or self-care (01) ==
LOC: CPTX 09:00
PROVIDERS: PCP Orthopaedic Surgery Adult Reconstructive Orthopaedic Surgery; Referring Provider Orthopaedic Surgery Adult Reconstructive Orthopaedic Surgery; Visit Provider Orthopaedic Surgery Adult Reconstructive Orthopaedic Surgery
DX: M25.561 Pain in right knee (principal); R26.2 Difficulty in walking, not elsewhere classified; R26.89 Other abnormalities of gait and mobility; Z47.1 Aftercare following joint replacement surgery; Z96.651 Presence of right artificial knee joint
CPT/HCPCS: 97110; 97162

== ENCOUNTER 2025-07-16 12:21 | Observation (INO) | payer MEDICAID, SELFPAY ==
[2025-07-16] VITALS (7 sets, daily range): BP systolic 110–128; BP diastolic 76–88; PULSE 74–107; RESP 18–98; TEMP 36.1–37.6; O2SAT 94–98; BMI 36.8
--- NOTE | 2025-07-16 12:54 | EKG_ITS ---
[facility] Test Date: 2025-07-16 Pat Name: LYNNE CARDOSO Department: Room: - Gender: Male [employer]: : 1970 Requested By: Wai Guerrero Order Number: [id number] Reading MD: Wai Guerrero Measurements Intervals [place] Rate: 96 P: 18 [place]: 148 QRS: 263 QRSD: 94 T: 14 QT: 336 QTc: 426 Interpretive Statements SINUS RHYTHM INCOMPLETE RIGHT BUNDLE BRANCH BLOCK [90+ ms QRS DURATION, TERMINAL R IN V1/V2, 40+ ms S IN I/aVL/V4/V5/V6] POSSIBLE RIGHT VENTRICULAR HYPERTROPHY [SOME/ALL OF: PROMINENT R IN V1, LATE TRANSITION, RAD, PIA, SSS] INFERIOR MYOCARDIAL INFARCTION , PROBABLY OLD [40+ ms Q WAVE AND/OR ST/T ABNORMALITY IN II/aVF] ANTEROLATERAL MYOCARDIAL INFARCTION , PROBABLY OLD [40+ ms Q WAVE IN I/aVL/V3-V6] No previous ECG available for comparison /store/S0/[id number].pdf
--- NOTE | 2025-07-16 12:54 | XR_ITS ---
Examination: PA lateral chest 2 views TECHNIQUE: Upright PA lateral chest 2 views Date and time: July 16, 2025 1306 hours INDICATIONS: Chest pain today. FINDINGS: Normal heart size No pneumonia or pulmonary edema. The osseous structures are demineralized IMPRESSION: No active disease
--- NOTE | 2025-07-16 12:54 | PD.EDRME ---
Rapid Medical Screening Exam RME Arrival date/time: 07/16/25 12:21 54-year-old male with a history of hyperlipidemia, type 2 diabetes, hypertension presents to the emergency room with a chief complaint of bilateral lower extremity edema and generalized weakness and fatigue x 3 days. Patient was sent over by his primary care provider. I have greeted and performed a focused initial assessment of this patient. A comprehensive ED assessment and evaluation of the patient, analysis of all test results, and completion of the medical decision making process will be conducted by additional ED providers. Chief Complaint: Weakness Time Seen by Provider: 07/16/25 12:49 Vital signs: Vital Signs Temperature 99.7 F 07/16/25 12:38 Pulse Rate 107 H 07/16/25 12:38 Respiratory Rate 18 07/16/25 12:38 Blood Pressure 113/77 07/16/25 12:38 Pulse Oximetry (%) 95 07/16/25 12:38 Oxygen Delivery Method Room Air 07/16/25 12:38 Vital signs reviewed by provider: Yes
[2025-07-16 13:38] LABS: Basophils # (Auto) 0.1 Thou/mm3 (0.0-0.2); Basophils % (Auto) 1 % (0-2.5); Eosinophils # (Auto) 0.5 Thou/mm3 (0.0-0.5); Eosinophils % (Auto) 6 % (0-10); Hematocrit 40.6 % (41.0-53.0); Hemoglobin 13.5 g/dL (13.5-16.0); Immature Granulocytes Auto 0.04 Thou/mm3 (0.00-0.00); Lymphocytes # (Auto) 3.0 Thou/mm3 (1.0-4.8); Lymphocytes % (Auto) 33 % (10-50); Mean Corpuscular HGB Conc 33.3 g/dl (31.0-37.0); Mean Corpuscular Hemoglobin 30.1 pg (25.0-35.0); Mean Corpuscular Volume 91 fL (80-100); Monocytes # (Auto) 1.0 Thou/mm3 (0.0-0.8); Monocytes % (Auto) 11 % (0-12); Neutrophils # (Auto) 4.4 Thou/mm3 (1.8-7.7); Neutrophils % (Auto) 49 % (37-80); Nucleated Red Blood Cell # 0.00 Thou/mm3 (0.00-0.00); Nucleated Red Blood Cell % 0 /100 WBC (0); Platelet Count 214 Thou/mm3 (140-440); RDW Standard Deviation 44.3 fL (35.1-43.9); Red Blood Count 4.48 Miln/mm3 (4.50-5.90); White Blood Count 8.9 Thou/mm3 (3.8-10.6)
--- NOTE | 2025-07-16 13:46 | PD.EDWEAK ---
ED Weakness RME/HPI General Chief complaint: Weakness Stated complaint: LOW BP, EDEMA, WEAKNESS Time Seen by Provider: 07/16/25 12:49 Arrival date/time: 07/16/25 12:21 Limitations: no limitations and language barrier RME / HPI RME / HPI Narrative: 07/16/25 12:21 54-year-old male with a history of hyperlipidemia, type 2 diabetes, hypertension presents to the emergency room with a chief complaint of bilateral lower extremity edema and generalized weakness and fatigue x 3 days. Patient was sent over by his primary care provider. I have greeted and performed a focused initial assessment of this patient. A comprehensive ED assessment and evaluation of the patient, analysis of all test results, and completion of the medical decision making process will be conducted by additional ED providers. DR. AGEE MAIN ED EVALUATION 54 year old male with history of hypertension, diabetes, hyperlipidemia, COPD, s/p total right knee replacement 06/05/[address] Jones presents to the ED referred by PCP for evaluation of hypotension and pallor today. Per paperwork from the clinic, blood pressure was 88/55 and HR 109. Per , since the knee surgery, the patient has had decreased appetite, feels globally weak, and has had bilateral lower extremity swelling. Denies associated abdominal pain or vomiting. Denies fevers, chills, chest pain, cough, shortness of breath, or urinary symptoms. Related Data Home Medications ?Medication ?Instructions ?Recorded ?Confirmed atorvastatin 40 mg tablet 40 mg PO HS 09/25/22 07/04/25 insulin glargine 100 unit/mL (3 25 unit subcut HS 09/25/22 07/04/25 mL) subcutaneous pen (Lantus Solostar U-100 Insulin) amlodipine 10 mg tablet 10 mg PO HS 05/29/25 07/04/25 empagliflozin 25 mg tablet 25 mg PO QAM 05/29/25 07/04/25 (Jardiance) ergocalciferol (vitamin D2) 1,250 1,250 mcg PO QWEEK 05/29/25 07/04/25 mcg (50,000 unit) capsule meloxicam 15 mg tablet 15 mg PO HS 05/29/25 07/04/25 metformin 1,000 mg tablet 1,000 mg PO BID 05/29/25 07/04/25 omeprazole 40 mg capsule,delayed 40 mg PO DAILY 05/29/25 07/04/25 release tirzepatide 5 mg/0.5 mL 5 mg subcut QWEEK 05/29/25 07/04/25 subcutaneous pen injector (Ashely) Previous Rx's ?Medication ?Instructions ?Recorded acetaminophen 500 mg tablet 1,000 mg (2 x 500 mg) PO Q6H PRN 06/05/25 (Acetaminophen Extra Strength) pain #90 tabs aspirin 81 mg tablet,delayed 81 mg PO BID #60 tabs 06/05/25 release doxycycline hyclate 100 mg tablet 100 mg PO BID #14 tabs 06/05/25 sennosides 8.6 mg-docusate sodium 1 tab-cap PO QDAY #30 tabs 06/05/25 50 mg tablet (Senna-S) acetaminophen 500 mg tablet 1,000 mg (2 x 500 mg) PO Q6H PRN 06/12/25 (Acetaminophen Extra Strength) pain #90 tabs oxycodone 5 mg tablet 5 mg PO Q6H PRN pain #28 tabs 06/12/25 oxycodone 5 mg tablet 5 mg PO Q6H PRN pain #28 tabs 06/20/25 cyclobenzaprine 5 mg tablet 5 mg PO QHS PRN muscle spasm #30 07/04/25 tabs gabapentin 300 mg capsule 300 mg PO .qhs #30 caps 07/04/25 Allergies Allergy/AdvReac Type Severity Reaction Status Date / Time No Known Allergies Allergy Verified 07/16/25 12:28 Review of Systems Review of Systems Systems Reviewed: All systems reviewed, normal except as documented Past Medical History Past Medical History CARDIAC: Positive Cardiac Disorders, Hypercholesterolemia, Edema (feet get swollen in the evening) and Hypertension RESPIRATORY: Positive Smoking (15 YEARS) and Smoking Exposure GASTROINTESTINAL: Positive Gastrointestinal Disorders, Gastroesophageal Reflux Disease and Obesity MUSCULOSKELETAL: Positive Arthritis ENDOCRINE: Positive Endocrine Disorders PSYCHO/SOCIAL: Positive Depression and Anxiety OTHER HISTORY: Positive Hospitalization (tooth infection, left hand surgery) and Chicken Pox Family History FAMILY HISTORY: Positive Family Cancer and Family Surgery Social History SMOKING STATUS: Never smoker ED Exam General Limitations: Present no limitations and language barrier General appearance: Present alert and in no apparent distress Head Head exam: Present atraumatic, normocephalic and normal inspection Eye Eye exam: Present normal appearance, PERRL and EOMI ENT ENT exam: Present normal exam and normal oropharynx Neck Neck exam: Present normal inspection and full ROM Chest Chest inspection: Present normal inspection and symmetric chest wall rise Respiratory Respiratory exam: Present normal lung sounds bilaterally; Absent respiratory distress, wheezes or stridor Cardiovascular Cardiovascular exam: Present normal rhythm and tachycardia Abdominal Exam Abdominal exam: Present soft; Absent distention, tenderness or guarding Extremities Exam Extremities exam: Present normal inspection and other (No swelling no lesions) Expanded Lower Extremity Exam Lower leg exam: Present other (Bilateral lower extremity pitting edema, symmetric, 2+ dp pulses bl LE intact ) Back Exam Back exam: Present normal inspection Neurological Exam Neurological exam: Present alert and CN II-XII intact Psychiatric Psychiatric exam: Present normal affect and normal mood Skin Skin exam: Present warm, dry, intact and pallor Course Quality Measures none Orders Category Date Time Status Patient Condition Routine Admission 07/16/25 16:[address] in Observation Status Routine Admission 07/16/25 16:54 Active Bedside COVID-19 Antigen Test NOW Care 07/16/25 14:09 Active Bedside Influenza A&B Antigen Test NOW Care 07/16/25 14:09 Active Continuous Pulse Oximetry NOW Care 07/16/25 16:52 Active EKG (ED ONLY) *Do not use* NOW Care 07/16/25 12:54 Completed Notify provider NEEDED Care 07/16/25 16:52 Active EKG (ED Only) Stat Exams 07/16/25 12:54 Draft US venous duplex LE BI Stat Exams 07/16/25 14:04 Completed XR chest 2V Stat Exams 07/16/25 12:54 Completed B-Type Natriuretic Peptide Stat Lab 07/16/25 13:24 Completed CBC Stat Lab 07/16/25 13:24 Completed Comprehensive Metabolic Panel Stat Lab 07/16/25 13:24 Completed Drug Screen,Urine Stat Lab 07/16/25 13:50 Completed Magnesium Stat Lab 07/16/25 13:24 Completed Partial Thromboplastin Time Stat Lab 07/16/25 13:24 Completed Prothrombin Time with INR Stat Lab 07/16/25 13:24 Completed Troponin I Stat Lab 07/16/25 13:24 Completed Urinalysis, C/S if Indicated Stat Lab 07/16/25 13:50 Completed Calcium Gluc/Ns 1000MG Ivpb [Calcium Gluc/Ns 1000mg Med 07/16/25 16:15 Discontinued Ivpb] 1,000 mg in 50 ml IV X1 Magnesium Sulfate 2 GM Ivpb [Magnesium Sulfate Ivpb] Med 07/16/25 15:58 Active 2 gm in 50 ml IV X1 Ringers Lactated 1000 ml [Lactated Ringers] 1,000 ml Med 07/16/25 14:08 Discontinued IV 999 mls/hr Code Status Routine Oth 07/16/25 16:52 Ordered Oxygen Delivery PRN RT 07/16/25 16:52 Active Vital Signs Vital signs: Vital Signs Temperature 99.7 F 07/16/25 12:38 Pulse Rate 107 H 07/16/25 12:38 Respiratory Rate 18 07/16/25 12:38 Blood Pressure 113/77 07/16/25 12:38 Pulse Oximetry (%) 95 07/16/25 12:38 Oxygen Delivery Method Room Air 07/16/25 12:38 Pulse ox is 95% on room air which is adequate. Weakness MDM Narrative MDM Narrative:: Patient is a 54-year-old male that seen emerged primary concerns for weakness, pallor and bilateral lower extremity swelling. Vital signs and exam as listed. Concern for ACS arrhythmia electrolyte abnormality symptomatic anemia DVTs among others. Ordered labs EKG chest x-ray. Also ordered bilateral lower extremity ultrasounds. Labs without any acute significant hematologic abnormality. Patient hemoglobin is 13.5. Patient with critically low magnesium, less than 0.5. Also hypocalcemic. Urinalysis without evidence of infection. Drug screen negative. EKG performed today at 1258, notable for sinus rhythm, normal intervals, nonspecific T wave changes, not a cardiac alert. Troponin is 0.05. Chest x-ray unremarkable. Bilateral lower extremity ultrasounds without evidence of DVT. Given history exam and presentation, will discuss admission with hospitalist service for ACS rule out and management of the critically low hypomagnesemia, and hypocalcemia. Discussed case with hospitalist team, kindly excepted patient for admission. Patient data External records reviewed:: [facility] previous records Clinical information provided by:: patient Social determinants that could affect healthcare access:: none Patient has the following chronic illnesses:: See MDM How is presenting disease/condition affected by chronic disease/condition?: exacerbated by Evaluation data The following diagnostics were reviewed and interpreted by me:: lab results, radiology exam(s) and EKG tracing(s) Lab and/or radiology exams considered but not ordered:: None Interpretation Summary: See MDM Medications / Prescriptions Medications or Prescriptions considered but not ordered:: None Medication administrations:: Medication Administration History Acetaminophen (Acetaminophen 325 Mg Tablet) 650 mg PO Q6H PRN PRN Reason: Fever >100.4 or pain Stop: 08/15/25 16:57 Dextrose (Dextrose 50%-Water Inj 50 Ml Syringe) 25 ml IV Q15MIN PRN PRN Reason: BG 50-70 responsive npo pt Stop: 08/15/25 17:02 Dextrose (Dextrose 50%-Water Inj 50 Ml Syringe) 50 ml IV Q15MIN PRN PRN Reason: BG <50 OR BG <70 & pt unresponsive Stop: 08/15/25 17:02 Glucagon (Glucagon Inj 1 Mg Vial) 1 mg IM Q15MIN PRN PRN Reason: BG <70, and no IV access Heparin Sodium (Porcine) (Heparin Sod Inj 5000 Unit/Ml Vial) 5,000 unit SC Q8HR MARILY[facility] Stop: 07/30/25 17:14 Magnesium Sulfate (Magnesium Sulfate Ivpb) 2 gm in 50 mls @ 25 mls/hr IV X1 ONE Stop: 07/16/25 17:57 Last Admin: 07/16/25 17:14 Dose: 25 mls/hr Documented By: VG Magnesium Sulfate (Magnesium Sulfate Ivpb) 4 gm in 50 mls @ 12.5 mls/hr IV X1 ONE Stop: 07/16/25 21:59 Insulin Human Lispro (Insulin Lispro (Admelog) 1 Unit/0.01 Ml Unit) 0 unit SC [facility]; Protocol Stop: 08/15/25 20:59 Ondansetron HCl (Ondansetron Inj 2 Mg/Ml Inj 2 Ml) 4 mg IVP Q6H PRN; Protocol PRN Reason: NAUSEA OR VOMITING Stop: 08/15/25 16:57 Sennosides (Senna Tablet) 1 tab PO QDAY PRN; Protocol PRN Reason: constipation Stop: 08/15/25 16:57 Discontinued Medications Lactated Ringer's (Lactated Ringers) 1,000 mls @ 999 mls/hr IV .Q1H1M ONE Stop: 07/16/25 15:08 Last Admin: 07/16/25 17:12 Dose: 999 mls/hr Documented By: VG Calcium Gluconate/Sodium Chloride (Calcium Gluc/Ns 1000mg Ivpb) 1,000 mg in 50 mls @ 50 mls/hr IV X1 ONE Stop: 07/16/25 17:14 See above Consultations Consultation(s) initiated? (list below): Yes Consultation #1 (Physician, Specialty, Details): See mdm Time: 16:00 Diagnosis Weakness Differential Diagnosis: other (See MDM ) Most likely diagnosis given after review of the tests above:: See MDM Admission Indicated Admission indicated?: indicated Admission Request Was there a request for admission?: Yes Admission Attestation Admission request attestation: Discussed case with Hospitalist service regarding admission. Discussed patients ED course, exam findings, labs, and radiology results. The Hospitalist [agrees] to accept the patient for admission. Disposition Plan Disposition Plan: Admit Critical Care Time Critical Care Time Critical Care Time: Yes Total Critical Care Time (min.): 45 Attestation: ?I spent 45 minutes of critical care time with this patient not including reportable procedures. There was an acute impairment of an organ system with a high probability of imminent or life threatening deterioration in the patient's condition. Interventions and changes required in the course of therapy are located in the chart. Time involved was spent in direct patient care, reviewing ancillary data, old records, consulting with decision makers, EMS, other doctors, giving orders and documenting. Discharge Plan Plan Patient Disposition: Admit Acute Care w/in Hospital Problem List Clinical Impression: Hypomagnesemia, Hypocalcemia
[2025-07-16 13:51] LABS: INR 1.3 (0.9-1.3); Partial Thromboplastin Time 29.7 Seconds (22.0-36.0); Prothrombin Time 13.5 Seconds (9.0-12.2)
[2025-07-16 13:55] LABS: B-Type Natriuretic Peptide < 20 pg/mL (0-100)
[2025-07-16 13:59] LABS: Collection Type, Urine Clean Catch
--- NOTE | 2025-07-16 14:04 | XR_ITS ---
Examination: Venous duplex lower extremity sonogram, bilateral. Date and time of exam: July 16, 2025 1504 hours INDICATIONS: Bilateral leg swelling 3 days right knee replacement June 05, 2025 Technique: Multiple sonographic images of the deep venous system have been obtained. B-mode/2-D grayscale imaging of vascular structures and Doppler spectral analysis (waveforms) and color performed Both legs are examined. Findings: Deep venous systems do not demonstrate abnormal echogenicity. All visualized deep veins exhibit compressibility. All visualized deep veins exhibit augmentation. Impression: Negative for deep vein thrombosis
[2025-07-16 14:09] LABS: Bilirubin,Urine Negative (Negative); Blood,Urine Negative (Negative); Clarity,Urine Clear (Clear/Hazy); Color,Urine Lt-Yellow (Lt Yel-Yel); Culture Indicated,Urine Not Indicated; Glucose, Urine 4+ (Negative); Ketones,Urine Trace (Negative); Leukocyte Esterase,Urine Negative (Negative); Nitrite,Urine Negative (Negative); PH,Urine 6.5 (5.0-7.0); Protein,Urine Negative (Neg - Trace); RBC,Urine 3 /hpf (0-3); Specific Gravity,Urine 1.040 (1.001-1.035); Squamous Epithelial Cell,Urine 1 /hpf (0-5); Urobilinogen,Urine Negative mg/dL (0.0-1.0); WBC,Urine 1 /hpf (0-5)
[2025-07-16 14:10] LABS: Amphetamine/Methamp Scrn,U Negative (Negative); Barbiturate Screen,Urine Negative (Negative); Benzodiazepines Screen,Urine Negative (Negative); Benzoylecgonine Screen, Ur Negative (Negative); Fentanyl Screen,Urine Negative (Negative); Opiate Screen,Urine Negative (Negative); THC Screen,Urine Negative (Negative)
[2025-07-16 14:42] LABS: Alanine Aminotransferase 31 U/L (10-49); Albumin, Serum 3.3 gm/dL (3.5-5.0); Albumin/Globulin Ratio 1.7 (1.2-2.2); Alkaline Phosphatase 73 U/L (46-116); Anion Gap 13 (7-16); Aspartate Amino Transferase 52 U/L (0-34); BUN/Creatinine Ratio 7 Ratio (12-20); Bilirubin,Total 0.9 mg/dL (0.3-1.2); Blood Urea Nitrogen < 5 mg/dL (9-23); Calcium 7.3 mg/dL (8.3-10.6); Calcium (Corrected) 7.9 mg/dL (8.5-10.1); Carbon Dioxide 24.8 mMol/L (20.0-31.0); Chloride 106 mMol/L (98-107); Creatinine (Component) 0.7 mg/dL (0.6-1.3); Estimated Creatinine Clearance 135.9 mL/min (>60); Globulin 1.9 gm/dL (2.3-3.5); Glucose 217 mg/dL (74-106); Osmolality,Calculated 291 (275-295); Potassium 3.9 mMol/L (3.4-5.1); Sodium 144 mMol/L (136-145); Total Protein 5.2 gm/dL (5.7-8.2); eGFR > 60 See Note
[2025-07-16 14:44] LABS: Magnesium < 0.5 mg/dL (1.6-2.6)
--- NOTE | 2025-07-16 14:44 | PC.NURSE ---
PAUL FROM LAB CALLED W/ MAGNESIUM LESS THAN 0.5 AND TROPONIN 0.050. RESULTS PLACED IN COMMENT.
[2025-07-16 14:45] LABS: Troponin I 0.050 ng/mL (0.0-0.045)
[2025-07-16] MEDS: RINGERS LACTATED 1000 ML 1,000 ML 999 ML IV (17:12)
[2025-07-16] MEDS: Magnesium Sulfate 2 GM Ivpb 2 GM/50 ML BAG IV (17:14)
[2025-07-16] MEDS: HEPARIN SOD INJ 5000 UNIT/ML VIAL SC ×2 (17:43→21:31)
[2025-07-16] MEDS: CALCIUM GLUC/NS 1000MG IVPB 1,000 MG/50 ML BAG 50 MG IV (17:43)
--- NOTE | 2025-07-16 17:54 | PC.NURSE ---
Report from Juhi FELDER Rn, pt. in stable condition AOX4. Will come up after covid test.
--- NOTE | 2025-07-16 18:04 | ESHP_ITS ---
Documentation for date of: 07/16/25 HPI History of Present Illness Chief complaint: weakness History of present illness: Tsering Cuenca is 54 yr male with PMH of HTN, insulin-dependent type 2 diabetes, HLD, GERD presenting to ED due to weakness. Patient stated that he was at [facility] earlier this morning when the nurse noted that he was not looking well. Advised to come into the hospital. Patient stated that he is feeling weak with difficulty in walking at times, decreased appetite after his knee surgery in May. Has only been drinking liquids and soups endorsing weight loss of 13 pounds (likely due to the Mounjaro). Denies any nausea, vomiting, fever, chest pain, shortness of breath. Bowel movements are regular recent bowel movement this morning. Patient denies any falls or loss of consciousness. He is a poor historian when it comes to past medical history unable to recall his medications. In ED, blood pressure 124/88, pulse 96, afebrile. Glucose 217, calcium 7.9, magnesium<0.05, troponin 0.075, Utox negative. UA negative for infection, +4glucose. EKG negative for ST changes, NSR. LE negative for DVT on u/s. Admit for presyncope likely in setting of electrolyte abnormalities. PMH: as above PSH: May 2025 knee replacement FamHx: Htn, DM in mother Social: denies smoking or drinking. Works in the [employer]. Meds: Med rec pending Allergies: NKDA Review of Systems Review of Systems Systems Reviewed: All systems reviewed, normal except as documented Exam Vital Signs Temp Pulse Resp BP Pulse Ox O2 Del Method 99.7 F 89 19 113/77 95 Room Air 07/16/25 12:38 07/16/25 17:59 07/16/25 17:59 07/16/25 12:38 07/16/25 12:38 07/16/25 12:38 Narrative Exam General: Middle age male, obese, No acute distress, cooperative HEENT: NCAT, No JVD noted. Mucosa moist. Pupils are equal and reactive to light bilaterally Cardiovascular: Normal S1 and S2. Regular rate and rhythm. Respiratory: Lungs are clear to auscultation bilaterally. No wheezing or crackles heard. Abdomen: Soft, nontender, not distended, normal bowel sounds. Skin: Warm to touch, dry, LE dry skin with flaking Musculoskeletal: No gross injuries. Able to move all 4 extremities. No pitting edema Neuro: Alert and oriented x3. No focal neuro deficits. Psych: Normal affect and mood Results: Labs 07/18/25 04:28 07/18/25 04:28 Labs: Short CBC 07/16/25 Range/Units 13:24 WBC 8.9 (3.8-10.6) Thou/mm3 Hgb 13.5 (13.5-16.0) g/dL Hct 40.6 L (41.0-53.0) % Plt Count 214 (140-440) Thou/mm3 BMP 07/16/25 13:24 Sodium 144 Potassium 3.9 Chloride 106 Carbon Dioxide 24.8 BUN < 5 L Creatinine 0.7 Glucose 217 H Calcium 7.3 L Cardiac Enzymes 07/16/25 Range/Units 13:24 Troponin I 0.050 H* (0.0-0.045) ng/mL Liver Function 07/16/25 Range/Units 13:24 Total Bilirubin 0.9 (0.3-1.2) mg/dL AST 52 H (0-34) U/L ALT 31 (10-49) U/L Alkaline Phosphatase 73 (46-116) U/L Albumin 3.3 L (3.5-5.0) gm/dL Urine 07/16/25 Range/Units 13:50 Urine Color Lt-Yellow (Lt Yel-Yel) Urine Clarity Clear (Clear/Hazy) Urine pH 6.5 (5.0-7.0) Ur Specific [place] 1.040 H (1.001-1.035) Urine Protein Negative (Neg - Trace) Urine Glucose (UA) 4+ A (Negative) Quality Measures Quality Measures none Medications Home Medications and Allergies Home Medications ?Medication ?Instructions ?Recorded ?Confirmed ?Type atorvastatin 40 mg tablet 40 mg PO HS 09/25/22 5 History amlodipine 10 mg tablet 10 mg PO HS 05/29/25 5 History empagliflozin 25 mg tablet 25 mg PO QAM 05/29/2507/16 History (Jardiance) ergocalciferol (vitamin D2) 1,250 1,250 mcg PO QWEEK 0 05/29/25 07/16/25 History mcg (50,000 unit) capsule metformin 1,000 mg tablet 1,000 mg PO BID 05/29/25 History omeprazole 40 mg capsule,delayed 40 mg PO DAILY 07/16/25 History release insulin degludec 100 unit/mL (3 15 unit subcut HS 06/2507/16/25 History mL) subcutaneous pen (Tresiba FlexTouch U-100 insulin) Held on 07/17/25. Instructions: Resume on 07/31/25. Resume after PCP follow up. montelukast 10 mg tablet 10 mg PO QDAY 07/16/2507/16 History tamsulosin 0.4 mg capsule 0.4 mg PO Q24H 07/16/2506/25 History Allergies Allergy/AdvReac Type Severity Reaction Status Date / Time No Known Allergies Allergy Verified 07/16/25 12:28 Visit Medications Acetaminophen (Acetaminophen 325 Mg Tablet) 650 mg PO Q6H PRN PRN Reason: Fever >100.4 or pain Stop: 08/15/25 16:57 Dextrose (Dextrose 50%-Water Inj 50 Ml Syringe) 25 ml IV Q15MIN PRN PRN Reason: BG 50-70 responsive npo pt Stop: 08/15/25 17:02 Dextrose (Dextrose 50%-Water Inj 50 Ml Syringe) 50 ml IV Q15MIN PRN PRN Reason: BG <50 OR BG <70 & pt unresponsive Stop: 08/15/25 17:02 Glucagon (Glucagon Inj 1 Mg Vial) 1 mg IM Q15MIN PRN PRN Reason: BG <70, and no IV access Heparin Sodium (Porcine) (Heparin Sod Inj 5000 Unit/Ml Vial) 5,000 unit SC Q8HR [facility] Stop: 07/30/25 17:14 Last Admin: 07/16/25 17:43 Dose: 5,000 unit Magnesium Sulfate (Magnesium Sulfate Ivpb) 4 gm in 50 mls @ 12.5 mls/hr IV X1 ONE Stop: 07/16/25 21:59 Insulin Human Lispro (Insulin Lispro (Admelog) 1 Unit/0.01 Ml Unit) 0 unit SC A[facility]S [facility]; Protocol Stop: 08/15/25 20:59 Ondansetron HCl (Ondansetron Inj 2 Mg/Ml Inj 2 Ml) 4 mg IVP Q6H PRN; Protocol PRN Reason: NAUSEA OR VOMITING Stop: 08/15/25 16:57 Sennosides (Senna Tablet) 1 tab PO QDAY PRN; Protocol PRN Reason: constipation Stop: 08/15/25 16:57 Discontinued Medications Lactated Ringer's (Lactated Ringers) 1,000 mls @ 999 mls/hr IV .Q1H1M ONE Stop: 07/16/25 15:08 Last Admin: 07/16/25 17:12 Dose: 999 mls/hr Magnesium Sulfate (Magnesium Sulfate Ivpb) 2 gm in 50 mls @ 25 mls/hr IV X1 ONE Stop: 07/16/25 17:57 Last Admin: 07/16/25 17:14 Dose: 25 mls/hr Calcium Gluconate/Sodium Chloride (Calcium Gluc/Ns 1000mg Ivpb) 1,000 mg in 50 mls @ 50 mls/hr IV X1 ONE Stop: 07/16/25 17:14 Last Admin: 07/16/25 17:43 Dose: 50 mls/hr Assessment & Plan Plan Tsering Cuenca is 54 yr male with PMH of HTN, insulin-dependent type 2 diabetes, HLD, GERD presenting to ED due to weakness. Patient stated that he was at [facility] earlier this morning when the nurse noted that he was not looking well. Started feeling weak, dizzy, diaphoretic. Admit for presyncope likely in setting of electrolyte abnormalities. #Presyncope # Electrolyte abnormalities Presyncope likely due to electrolyte abnormalities including calcium 7.9, magnesium<0.05. Patient was starting to feel weak and dizzy while in the clinic to see his PCP this morning. States that he has lost 13 pounds and has only been eating a mostly liquid diet with decreased appetite. Vitals are stable, other lab values unremarkable. EKG normal sinus rhythm with no acute ST changes. Work up for hypocalcemia in Oct 2022 for PTH and Vit d WNL. - Orthostatic vitals -Continue IV magnesium 4g q4hr until 6 am -follow up with BMP at midnight - Supplement with p.o. calcium carbonate if calcium remains low at repeat labs -repeat PTH -repeat vit D #Elevated troponins Likely NSTEMI II in setting of his dehydration and decreased oral intake and hypotension on arrival. Trops 0.075 in ED. he denies chest pain, shortness of breath, abdominal pain, diaphoresis. EKG is negative for any acute ST changes. Normal sinus rhythm. -trend troponins # Insulin-dependent type 2 diabetes On admission initial glucose 217. Last A1c 6.8 on 10/25/2022. Per chart review patient takes 25 units of glargine, 25 mg Jardiance, metformin 1000 twice daily, Mounjaro 5 mg. Med rec is still pending. -Held home medications -Bedside blood glucose checks ACHS -Insulin lispro sliding scale -Carb consistent low diet -A1c pending #HTN med rec pending, per chart review patient takes amlodipine 10 mg. - Right now BP stable #Hyperlipidemia Atorvastatin 40 mg daily -lipid pannel pending Health maintenance: Dispo: tele for presyncope due to electrolyte abnormalities FEN: low carb DVT prophylaxis: Subcu heparin CODE STATUS: Full code The patient's management plan was discussed with my attending physician Dr. Lynch. Taylor Vieyra, PGY-2 Attending Provider Attestation/Addendum 54-year-old male with multiple comorbidities including hypertension, hyperlipidemia and type 2 diabetes mellitus who presented to the hospital for generalized weakness. Patient takes Mounjaro and endorses about 13 pound weight loss and noted to have electrolyte abnormalities. As a result, plan to admit the patient for electrolyte abnormalities and presyncope.I reviewed above note and agree with findings and plans. I have also personally examined the patient with medicine team and went over assessment and plan with medical team including exercise science internship and resident physician.
[2025-07-16 18:05] LABS: Troponin I 0.075 ng/mL (0.0-0.045)
[2025-07-16 18:42] LABS: Influenza A Ag Negative; Influenza B Ag Negative
[2025-07-16] MEDS: Magnesium Sulfate 4 GM Ivpb 4 GM/50 ML BAG IV ×2 (19:10→22:25)
[2025-07-16 20:30] LABS: Vitamin D 25 Hydroxy Total 114.8 ng/mL (7.3-40.2)
--- NOTE | 2025-07-16 22:36 | PC.NURSE ---
DR WARREN NOTIFIED OF 2ND BAG OF IV MAG SULFATE 4 GM INFUSING ORDERED, MADE AWARE OF MG LEVEL ORDERED IN AM . MD WILL PUT ORDER IN FOR MG LEVEL NOW.
[2025-07-16 23:10] LABS: Magnesium 1.5 mg/dL (1.6-2.6)
[2025-07-16 23:11] LABS: Troponin I 0.084 ng/mL (0.0-0.045)
[2025-07-17] VITALS (8 sets, daily range): BP systolic 114–129; BP diastolic 72–81; PULSE 79–102; RESP 13–95; TEMP 36–36.5; O2SAT 92–97; BMI 37.2
[2025-07-17 00:26] LABS: Anion Gap 13 (7-16); BUN/Creatinine Ratio 10 Ratio (12-20); Blood Urea Nitrogen 5 mg/dL (9-23); Calcium 6.9 mg/dL (8.3-10.6); Carbon Dioxide 24.3 mMol/L (20.0-31.0); Chloride 108 mMol/L (98-107); Creatinine (Component) 0.5 mg/dL (0.6-1.3); Estimated Creatinine Clearance 190.3 mL/min (>60); Glucose 108 mg/dL (74-106); Osmolality,Calculated 286 (275-295); Potassium 3.3 mMol/L (3.4-5.1); Sodium 145 mMol/L (136-145); eGFR > 60 See Note
[2025-07-17] MEDS: Magnesium Sulfate 4 GM Ivpb 4 GM/50 ML BAG IV (02:29)
[2025-07-17] MEDS: POTASSIUM CHL 10 mEq IVPB 10 MEQ/100 ML BAG 100 MEQ IV ×2 (02:35→09:06)
[2025-07-17 05:34] LABS: Basophils # (Auto) 0.1 Thou/mm3 (0.0-0.2); Basophils % (Auto) 1 % (0-2.5); Eosinophils # (Auto) 0.3 Thou/mm3 (0.0-0.5); Eosinophils % (Auto) 6 % (0-10); Hematocrit 37.0 % (41.0-53.0); Hemoglobin 12.1 g/dL (13.5-16.0); Immature Granulocytes Auto 0.03 Thou/mm3 (0.00-0.00); Lymphocytes # (Auto) 1.8 Thou/mm3 (1.0-4.8); Lymphocytes % (Auto) 35 % (10-50); Mean Corpuscular HGB Conc 32.7 g/dl (31.0-37.0); Mean Corpuscular Hemoglobin 29.7 pg (25.0-35.0); Mean Corpuscular Volume 91 fL (80-100); Monocytes # (Auto) 0.6 Thou/mm3 (0.0-0.8); Monocytes % (Auto) 12 % (0-12); Neutrophils # (Auto) 2.3 Thou/mm3 (1.8-7.7); Neutrophils % (Auto) 46 % (37-80); Nucleated Red Blood Cell # 0.00 Thou/mm3 (0.00-0.00); Nucleated Red Blood Cell % 0 /100 WBC (0); Platelet Count 201 Thou/mm3 (140-440); RDW Standard Deviation 44.0 fL (35.1-43.9); Red Blood Count 4.07 Miln/mm3 (4.50-5.90); White Blood Count 5.1 Thou/mm3 (3.8-10.6)
[2025-07-17] MEDS: HEPARIN SOD INJ 5000 UNIT/ML VIAL SC ×3 (05:35→20:59)
[2025-07-17 05:48] LABS: Glucose Estimated Average 120 mg/dL (80-131); Hemoglobin A1C 5.8 % Hgb (4.8-6.0)
[2025-07-17 06:11] LABS: Alanine Aminotransferase 28 U/L (10-49); Albumin, Serum 2.8 gm/dL (3.5-5.0); Albumin/Globulin Ratio 1.8 (1.2-2.2); Alkaline Phosphatase 62 U/L (46-116); Anion Gap 16 (7-16); Aspartate Amino Transferase 49 U/L (0-34); BUN/Creatinine Ratio 10 Ratio (12-20); Bilirubin,Total 0.7 mg/dL (0.3-1.2); Blood Urea Nitrogen < 5 mg/dL (9-23); Calcium 7.4 mg/dL (8.3-10.6); Calcium (Corrected) 8.4 mg/dL (8.5-10.1); Carbon Dioxide 22.9 mMol/L (20.0-31.0); Cardiac Risk Estimate 2.6 RATIO (4.0-6.7); Chloride 107 mMol/L (98-107); Cholesterol 67 mg/dL (132-200); Creatinine (Component) 0.5 mg/dL (0.6-1.3); Estimated Creatinine Clearance 191.4 mL/min (>60); Globulin 1.6 gm/dL (2.3-3.5); Glucose 102 mg/dL (74-106); HDL Cholesterol 26 mg/dL (40-60); LDL Cholesterol,Calculated 21 mg/dL (0-130); Magnesium 2.6 mg/dL (1.6-2.6); Osmolality,Calculated 287 (275-295); Phosphorous 5.0 mg/dL (2.4-5.1); Potassium 3.2 mMol/L (3.4-5.1); Sodium 146 mMol/L (136-145); Thyroid Stimulating Hormone 0.96 uIU/mL (0.55-4.78); Total Protein 4.4 gm/dL (5.7-8.2); Triglycerides 102 mg/dL (30-150); eGFR > 60 See Note
[2025-07-17 06:12] LABS: Troponin I 0.067 ng/mL (0.0-0.045)
[2025-07-17 06:52] LABS: Parathyroid Hormone Intact 69.4 pg/ml (18.5-88.0)
--- NOTE | 2025-07-17 07:57 | PD.RESPRO ---
Documentation for date of: 07/17/25 Exam Vital Signs Temp Pulse Resp BP Pulse Ox O2 Del Method 97.7 F 82 18 117/77 95 Room Air 07/17/25 04:00 07/17/25 07:00 07/17/25 07:00 07/17/25 04:00 07/17/25 04:00 07/17/25 04:00 Objective Labs 07/17/25 04:43 07/17/25 04:43 Labs: Laboratory Results - last 24 hr 07/16/25 07/16/25 07/16/25 13:24 13:50 17:24 WBC 8.9 RBC 4.48 L Hgb 13.5 Hct 40.6 L MCV 91 MCH 30.1 MCHC 33.3 RDW Std Deviation 44.3 H Plt Count 214 Neut % (Auto) 49 Lymph % (Auto) 33 [place] % (Auto) 11 Eos % (Auto) 6 Baso % (Auto) 1 Neut # (Auto) 4.4 Lymph # (Auto) 3.0 [place] # (Auto) 1.0 H Eos # (Auto) 0.5 Baso # (Auto) 0.1 Immature Gran # (Auto) 0.04 H Absolute Nucleated RBC 0.00 Immature Gran % 0 Nucleated RBC % 0 PT 13.5 H INR 1.3 APTT 29.7 Sodium 144 Potassium 3.9 Chloride 106 Carbon Dioxide 24.8 Anion Gap 13 BUN < 5 L Creatinine 0.7 Estim Creat Clear Calc 135.9 eGFR > 60 BUN/Creatinine Ratio 7 L Glucose [address] Glu mg/dL Hemoglobin A1c Calculated Osmolality 291 Calcium 7.3 L Corrected Calcium 7.9 L Phosphorus Magnesium < 0.5 L* Total Bilirubin 0.9 AST 52 H ALT 31 Alkaline Phosphatase 73 Troponin I 0.050 H* 0.075 H* B-Natriuretic Peptide < 20 Total Protein 5.2 L Albumin 3.3 L Globulin 1.9 L Albumin/Globulin Ratio 1.7 Triglycerides Cholesterol LDL Cholesterol, Calc HDL Cholesterol Cholesterol/HDL Ratio 25-OH Vitamin D Total 114.8 H TSH PTH Intact Ur Collection Type Clean Catch Urine Color Lt-Yellow Urine Clarity Clear Urine pH 6.5 Ur Specific [place] 1.040 H Urine Protein Negative Urine Glucose (UA) 4+ A Urine Ketones Trace Urine Blood Negative Urine Nitrite Negative Urine Bilirubin Negative Urine Urobilinogen (Auto) Negative Ur Leukocyte Esterase Negative Urine RBC 3 Urine WBC 1 Ur Squamous Epith Cells 1 Urine Bacteria None Ur Culture Indicated? Not Indicated Urine Opiates Screen Negative Urine Fentanyl Screen Negative Ur Barbiturates Screen Negative U Amphetamin/Meth Scrn Negative U Benzodiazepines Scrn Negative U Cocaine Metab Screen Negative U Marijuana (THC) Screen Negative Influenza A (Rapid) Influenza B (Rapid) 07/16/25 07/16/25 07/16/25 18:00 22:40 22:40 WBC RBC Hgb Hct MCV MCH MCHC RDW Std Deviation Plt Count Neut % (Auto) Lymph % (Auto) [place] % (Auto) Eos % (Auto) Baso % (Auto) Neut # (Auto) Lymph # (Auto) [place] # (Auto) Eos # (Auto) Baso # (Auto) Immature Gran # (Auto) Absolute Nucleated RBC Immature Gran % Nucleated RBC % PT INR APTT Sodium 145 Potassium 3.3 L D Chloride 108 H Carbon Dioxide 24.3 Anion Gap 13 BUN 5 L Creatinine 0.5 L Estim Creat Clear Calc 190.3 eGFR > 60 BUN/Creatinine Ratio 10 L Glucose [address] Glu mg/dL Hemoglobin A1c Calculated Osmolality 286 Calcium 6.9 L Corrected Calcium Phosphorus Magnesium Cancelled 1.5 L Total Bilirubin AST ALT Alkaline Phosphatase Troponin I 0.084 H* B-Natriuretic Peptide Total Protein Albumin Globulin Albumin/Globulin Ratio Triglycerides Cholesterol LDL Cholesterol, Calc HDL Cholesterol Cholesterol/HDL Ratio 25-OH Vitamin D Total TSH PTH Intact Ur Collection Type Urine Color Urine Clarity Urine pH Ur Specific [place] Urine Protein Urine Glucose (UA) Urine Ketones Urine Blood Urine Nitrite Urine Bilirubin Urine Urobilinogen (Auto) Ur Leukocyte Esterase Urine RBC Urine WBC Ur Squamous Epith Cells Urine Bacteria Ur Culture Indicated? Urine Opiates Screen Urine Fentanyl Screen Ur Barbiturates Screen U Amphetamin/Meth Scrn U Benzodiazepines Scrn U Cocaine Metab Screen U Marijuana (THC) Screen Influenza A (Rapid) Negative Influenza B (Rapid) Negative 07/17/25 04:43 WBC 5.1 D RBC 4.07 L Hgb 12.1 L Hct 37.0 L MCV 91 MCH 29.7 MCHC 32.7 RDW Std Deviation 44.0 H Plt Count 201 Neut % (Auto) 46 Lymph % (Auto) 35 [place] % (Auto) 12 Eos % (Auto) 6 Baso % (Auto) 1 Neut # (Auto) 2.3 Lymph # (Auto) 1.8 [place] # (Auto) 0.6 Eos # (Auto) 0.3 Baso # (Auto) 0.1 Immature Gran # (Auto) 0.03 H Absolute Nucleated RBC 0.00 Immature Gran % 1 H Nucleated RBC % 0 PT INR APTT Sodium 146 H Potassium 3.2 L Chloride 107 Carbon Dioxide 22.9 Anion Gap 16 BUN < 5 L Creatinine 0.5 L Estim Creat Clear Calc 191.4 eGFR > 60 BUN/Creatinine Ratio 10 L Glucose [address] Glu mg/dL 120 Hemoglobin A1c 5.8 Calculated Osmolality 287 Calcium 7.4 L Corrected Calcium 8.4 L Phosphorus 5.0 Magnesium 2.6 Total Bilirubin 0.7 AST 49 H ALT 28 Alkaline Phosphatase 62 Troponin I 0.067 H* B-Natriuretic Peptide Total Protein 4.4 L Albumin 2.8 L D Globulin 1.6 L Albumin/Globulin Ratio 1.8 Triglycerides 102 Cholesterol 67 L LDL Cholesterol, Calc 21 HDL Cholesterol 26 L Cholesterol/HDL Ratio 2.6 L 25-OH Vitamin D Total TSH 0.96 PTH Intact 69.4 Ur Collection Type Urine Color Urine Clarity Urine pH Ur Specific [place] Urine Protein Urine Glucose (UA) Urine Ketones Urine Blood Urine Nitrite Urine Bilirubin Urine Urobilinogen (Auto) Ur Leukocyte Esterase Urine RBC Urine WBC Ur Squamous Epith Cells Urine Bacteria Ur Culture Indicated? Urine Opiates Screen Urine Fentanyl Screen Ur Barbiturates Screen U Amphetamin/Meth Scrn U Benzodiazepines Scrn U Cocaine Metab Screen U Marijuana (THC) Screen Influenza A (Rapid) Influenza B (Rapid) Quality Measures Quality Measures none Assessment & Plan Assessment Current Active Medications: Generic Name Dose Route Start Last Admin Trade Name Freq PRN Reason Stop Dose Admin Acetaminophen 650 mg 07/16/25 16:58 Acetaminophen 325 Mg Tablet PO 08/15/25 16:57 Q6H PRN Fever >100.4 or pain Dextrose 25 ml 07/16/25 17:03 Dextrose 50%-Water Inj 50 Ml Syringe IV 08/15/25 17:02 Q15MIN PRN BG 50-70 responsive npo pt Dextrose 50 ml 07/16/25 17:03 Dextrose 50%-Water Inj 50 Ml Syringe IV 08/15/25 17:02 Q15MIN PRN BG <50 OR BG <70 & pt unresponsive Glucagon 1 mg 07/16/25 17:03 Glucagon Inj 1 Mg Vial IM Q15MIN PRN BG <70, and no IV access Heparin Sodium (Porcine) 5,000 unit 07/16/25 17:15 07/17/25 05:35 Heparin Sod Inj 5000 Unit/Ml Vial SC 07/30/25 17:14 5,000 unit Q8HR MARILYNN Administration Insulin Human Lispro 0 unit 07/16/25 21:00 07/16/25 20:23 Insulin Lispro (Admelog) 1 Unit/0.01 Ml Unit SC 08/15/25 20:59 Not Given ACHS MARILYNN Protocol Ondansetron HCl 4 mg 07/16/25 16:58 Ondansetron Inj 2 Mg/Ml Inj 2 Ml IVP 08/15/25 16:57 Q6H PRN NAUSEA OR VOMITING Protocol Sennosides 1 tab 07/16/25 16:58 Senna Tablet PO 08/15/25 16:57 QDAY PRN constipation Protocol
--- NOTE | 2025-07-17 08:25 | PC.SS ---
Patient Tsering Cuenca is a 54 Year old male admitted. SS met with patient at bedside to discuss discharge plan and verify demographic information. Patient appeared to be alert and oriented to time, place and situation. Patient reports he lives at home with his family, patients reports his , Roxana Cuenca is his surrogate decision maker, [phone]. Patient reports he utilizes a cane to assist with ambulation. Patient is able to complete all ADL's independently. Choice of pharmacy is [facility]. Patient's PCP is Vika Beaulieu. At time of discharge patient's family will provide transportation. Discharge plan: Home Next of kin: ,Roxana Cuenca PCP: Kenji Beaulieu
[2025-07-17] MEDS: CALCIUM CARBONATE 600 MG TABLET PO (09:06)
--- NOTE | 2025-07-17 10:02 | PD.RESDS ---
Planned Discharge Date 07/17/25 DS: Providers Provider Date of admission: 07/16/25 16:54 Primary care physician: JONE Tadeo Admitting Provider: Kimberlee Lynch MD Attending Provider on Admission: Kimberlee Lynch MD Attending Provider on DC: Sondra White MD Discharging Provider: Sondra White MD Hospital Course Hospital Course Hospital course: Tsering Cuenca is 54 yr male with PMH of HTN, insulin-dependent type 2 diabetes, HLD, GERD presenting to ED due to weakness. Patient stated that he was at [facility] earlier this morning when the nurse noted that he was not looking well. Advised to come into the hospital. Patient stated that he is feeling weak with difficulty in walking at times, decreased appetite after his knee surgery in May. Has only been drinking liquids and soups endorsing weight loss of 13 pounds (likely due to the Mounjaro). Denies any nausea, vomiting, fever, chest pain, shortness of breath. Bowel movements are regular recent bowel movement this morning. Patient denies any falls or loss of consciousness. He is a poor historian when it comes to past medical history unable to recall his medications. In ED, blood pressure 124/88, pulse 96, afebrile. Glucose 217, calcium 7.9, magnesium<0.05, troponin 0.075, Utox negative. UA negative for infection, +4glucose. EKG negative for ST changes, NSR. LE negative for DVT on u/s. Admit for presyncope likely in setting of electrolyte abnormalities. PMH: as above PSH: May 2025 knee replacement FamHx: Htn, DM in mother Social: denies smoking or drinking. Works in the [employer]. Meds: Med rec pending Allergies: NKDA Time Spent with Patient Time attestation: Total time spent providing and/or coordinating discharge services: Exam Vital Signs Temp Pulse Resp BP Pulse Ox O2 Del Method 96.8 F 95 17 114/72 92 L Room Air 07/17/25 08:00 07/17/25 08:00 07/17/25 08:00 07/17/25 08:00 07/17/25 08:00 07/17/25 08:00 Discharge Plan Prescriptions/Referrals Prescriptions/Med Rec: No Action cyclobenzaprine 5 mg tablet 5 mg PO QHS PRN (Reason: muscle spasm) Qty: 30 0RF gabapentin 300 mg capsule 300 mg PO .qhs Qty: 30 0RF atorvastatin 40 mg tablet 40 mg PO HS Patient Comments: TAKE 1 TABLET BY MOUTH EVERY DAY FOR 90 DAYS insulin glargine [Lantus Solostar U-100 Insulin] 100 unit/mL (3 mL) insulin pen 25 unit SUBCUT HS Patient Comments: INJECT 28 UNITS SUBCUTANEOUS DAILY Jardiance 25 mg tablet 25 mg PO QAM meloxicam 15 mg tablet 15 mg PO HS Patient Comments: TOME BRENNA TABLETA POR V A ORAL CADA NOCHE omeprazole 40 mg capsule,delayed release(DR/EC) 40 mg PO DAILY Patient Comments: TOME 1 CAPSULA POR LA BOCA ANTES DE COMER BRENNA VES AL MICHELA metformin 1,000 mg tablet 1,000 mg PO BID Patient Comments: TOME 1 TABLETA POR LA BOCA DOS VECES AL MICHELA CON COMIDA PARA DIABETES amlodipine 10 mg tablet 10 mg PO HS Patient Comments: TOME 1 TABLETA POR LA BOCA EN LA NOCHE ergocalciferol (vitamin D2) 1,250 mcg (50,000 unit) capsule 1,250 mcg PO QWEEK Patient Comments: TOME 1 C PSULA POR V A ORAL EVERY WEEK tamsulosin 0.4 mg capsule 0.4 mg PO Q24H montelukast 10 mg tablet 10 mg PO QDAY Patient Comments: TOME BRENNA TABLETA POR V A ORAL AL ACOSTARSE insulin degludec [Tresiba FlexTouch U-100] 100 unit/mL (3 mL) insulin pen 15 unit SUBCUT HS Patient Comments: INJECT 15 UNITS SUBCUTANEOUSLY NIGHTLY AT BEDTIME Referrals: Vika Beaulieu, [employer]TING [employer]ICING SUPERVISOR [Primary Care Provider] Patient/Caregiver Discharge Instructions Print Language: Divehi Discharge Order Discharge Orders: Discharge (Routine); Ordered 07/17/25 Ordered By: Taylor Vieyra
[2025-07-17] MEDS: POTASSIUM CHL 10 mEq IVPB 10 MEQ/100 ML BAG 50 MEQ IV (11:11)
[2025-07-17 14:23] LABS: Alanine Aminotransferase 34 U/L (10-49); Albumin, Serum 2.9 gm/dL (3.5-5.0); Albumin/Globulin Ratio 1.1 (1.2-2.2); Alkaline Phosphatase 65 U/L (46-116); Anion Gap 15 (7-16); Aspartate Amino Transferase 67 U/L (0-34); BUN/Creatinine Ratio 10 Ratio (12-20); Bilirubin,Total 0.3 mg/dL (0.3-1.2); Blood Urea Nitrogen < 5 mg/dL (9-23); Calcium 7.3 mg/dL (8.3-10.6); Calcium (Corrected) 8.2 mg/dL (8.5-10.1); Carbon Dioxide 21.4 mMol/L (20.0-31.0); Chloride 107 mMol/L (98-107); Creatinine (Component) 0.5 mg/dL (0.6-1.3); Estimated Creatinine Clearance 191.4 mL/min (>60); Globulin 2.7 gm/dL (2.3-3.5); Glucose 127 mg/dL (74-106); Osmolality,Calculated 284 (275-295); Potassium 4.2 mMol/L (3.4-5.1); Sodium 143 mMol/L (136-145); Total Protein 5.6 gm/dL (5.7-8.2); eGFR > 60 See Note
--- NOTE | 2025-07-17 16:03 | ESPR_ITS ---
<Statement entered by Taylor Vieyra MD - 07/17/25 17:28> Patient was examined at bedside. Initially patient was improving and ready for discharge after electrolytes repleted and stable. This morning sodium 143, potassium 4.2, calcium 8.2, magnesium 2.6. However there was new concern of dysphagia and blurry vision. Patient stated that for past couple weeks he has not been able to swallow small pieces of food and only able to pass liquids. GI was consulted for possible EGD to rule out any structural abnormalities. Follow-up with CT head as workup for blurry vision. The patient's management plan was discussed with my attending physician Dr. Lynch. Taylor Vieyra, PGY-2 Documentation for date of: 07/17/25 Subjective Subjective Interval history: Mr. Tsering Cuenca is 54 yr male with PMH of HTN, insulin-dependent type 2 diabetes, HLD, GERD presenting to ED due to weakness. Patient stated that he was at [facility] earlier this morning when the nurse noted that he was not looking well. Advised to come into the hospital. Patient stated that he is feeling weak with difficulty in walking at times, decreased appetite after his knee surgery in May 2025. Has only been drinking liquids and soups endorsing weight loss of 13 pounds initially suspected to be 2/2 mounjaro use, however pt reports that he last used mounjaro 3 weeks ago.Had BM 07/16 in the AM endorses dysphagia with solids, but is able to pass liquds, endorses nause, and states that he has an appetite but that he is unable to tolerate solid foods. 07/17/2025: repleated pts electrolytes and were planning to discharge pt, however he states that he is unable to pass solid foods despite his attempts to. plan for GI consult for possible egd, speech referral and undergoing workup for blurry vision with ct head. Exam Vital Signs Temp Pulse Resp BP Pulse Ox O2 Del Method 96.8 F 95 17 114/72 92 L Room Air 07/17/25 12:00 07/17/25 12:00 07/17/25 12:00 07/17/25 12:00 07/17/25 12:07/17/25 12:00 Narrative Exam General: Middle age male, obese, No acute distress, cooperative HEENT: NCAT, No JVD noted. Mucosa moist. Pupils are equal and reactive to light bilaterally Cardiovascular: Normal S1 and S2. Regular rate and rhythm. Respiratory: Lungs are clear to auscultation bilaterally. No wheezing or crackles heard. Abdomen: Soft, nontender, not distended, normal bowel sounds. Skin: Warm to touch, dry, LE dry skin with flaking Musculoskeletal: No gross injuries. Able to move all 4 extremities. No pitting edema Neuro: Alert and oriented x3. No focal neuro deficits. pt reports blurry vision. Psych: Normal affect and mood Objective Labs 07/18/25 04:28 07/18/25 04:28 Labs: Laboratory Results - last 24 hr 07/16/25 07/16/25 07/16/25 13:24 17:24 18:00 WBC RBC Hgb Hct MCV MCH MCHC RDW Std Deviation Plt Count Neut % (Auto) Lymph % (Auto) [place] % (Auto) Eos % (Auto) Baso % (Auto) Neut # (Auto) Lymph # (Auto) [place] # (Auto) Eos # (Auto) Baso # (Auto) Immature Gran # (Auto) Absolute Nucleated RBC Immature Gran % Nucleated RBC % Sodium Potassium Chloride Carbon Dioxide Anion Gap BUN Creatinine Estim Creat Clear Calc eGFR BUN/Creatinine Ratio Glucose Estimated Ave Glu mg/dL Hemoglobin A1c Calculated Osmolality Calcium Corrected Calcium Phosphorus Magnesium Total Bilirubin AST ALT Alkaline Phosphatase Troponin I 0.075 H* Total Protein Albumin Globulin Albumin/Globulin Ratio Triglycerides Cholesterol LDL Cholesterol, Calc HDL Cholesterol Cholesterol/HDL Ratio 25-OH Vitamin D Total 114.8 H TSH PTH Intact Influenza A (Rapid) Negative Influenza B (Rapid) Negative 07/16/25 07/16/25 07/17/25 22:40 22:40 04:43 WBC 5.1 D RBC 4.07 L Hgb 12.1 L Hct 37.0 L MCV 91 MCH 29.7 MCHC 32.7 RDW Std Deviation 44.0 H Plt Count 201 Neut % (Auto) 46 Lymph % (Auto) 35 [place] % (Auto) 12 Eos % (Auto) 6 Baso % (Auto) 1 Neut # (Auto) 2.3 Lymph # (Auto) 1.8 [place] # (Auto) 0.6 Eos # (Auto) 0.3 Baso # (Auto) 0.1 Immature Gran # (Auto) 0.03 H Absolute Nucleated RBC 0.00 Immature Gran % 1 H Nucleated RBC % 0 Sodium 145 146 H Potassium 3.3 L D 3.2 L Chloride 108 H 107 Carbon Dioxide 24.3 22.9 Anion Gap 13 16 BUN 5 L < 5 L Creatinine 0.5 L 0.5 L Estim Creat Clear Calc 190.3 191.4 eGFR > 60 > 60 BUN/Creatinine Ratio 10 L 10 L Glucose [address] D [address] Glu mg/dL 120 Hemoglobin A1c 5.8 Calculated Osmolality 286 287 Calcium 6.9 L 7.4 L Corrected Calcium 8.4 L Phosphorus 5.0 Magnesium Cancelled 1.5 L 2.6 Total Bilirubin 0.7 AST 49 H ALT 28 Alkaline Phosphatase 62 Troponin I 0.084 H* 0.067 H* Total Protein 4.4 L Albumin 2.8 L D Globulin 1.6 L Albumin/Globulin Ratio 1.8 Triglycerides 102 Cholesterol 67 L LDL Cholesterol, Calc 21 HDL Cholesterol 26 L Cholesterol/HDL Ratio 2.6 L 25-OH Vitamin D Total TSH 0.96 PTH Intact 69.4 Influenza A (Rapid) Influenza B (Rapid) 07/17/25 13:18 WBC RBC Hgb Hct MCV MCH MCHC RDW Std Deviation Plt Count Neut % (Auto) Lymph % (Auto) [place] % (Auto) Eos % (Auto) Baso % (Auto) Neut # (Auto) Lymph # (Auto) [place] # (Auto) Eos # (Auto) Baso # (Auto) Immature Gran # (Auto) Absolute Nucleated RBC Immature Gran % Nucleated RBC % Sodium 143 Potassium 4.2 D Chloride 107 Carbon Dioxide 21.4 Anion Gap 15 BUN < 5 L Creatinine 0.5 L Estim Creat Clear Calc 191.4 eGFR > 60 BUN/Creatinine Ratio 10 L Glucose [address] Glu mg/dL Hemoglobin A1c Calculated Osmolality 284 Calcium 7.3 L Corrected Calcium 8.2 L Phosphorus Magnesium Total Bilirubin 0.3 AST 67 H ALT 34 Alkaline Phosphatase 65 Troponin I Total Protein 5.6 L Albumin 2.9 L Globulin 2.7 Albumin/Globulin Ratio 1.1 L Triglycerides Cholesterol LDL Cholesterol, Calc HDL Cholesterol Cholesterol/HDL Ratio 25-OH Vitamin D Total TSH PTH Intact Influenza A (Rapid) Influenza B (Rapid) Quality Measures Quality Measures VTE prophylaxis Assessment & Plan Assessment Current Active Medications: Generic Name Dose Route Start Last Admin Trade Name Freq PRN Reason Stop Dose Admin Acetaminophen 650 mg 07/16/25 16:58 Acetaminophen 325 Mg Tablet PO 08/15/25 16:57 Q6H PRN Fever >100.4 or pain Calcium Carbonate 600 mg 07/17/25 09:00 07/17/25 09:06 Calcium Carbonate 600 Mg Tablet PO 08/16/25 08:59 600 mg QDAY MARILYNN Administration Dextrose 25 ml 07/16/25 17:03 Dextrose 50%-Water Inj 50 Ml Syringe IV 08/15/25 17:02 Q15MIN PRN BG 50-70 responsive npo pt Dextrose 50 ml 07/16/25 17:03 Dextrose 50%-Water Inj 50 Ml Syringe IV 08/15/25 17:02 Q15MIN PRN BG <50 OR BG <70 & pt unresponsive Glucagon 1 mg 07/16/25 17:03 Glucagon Inj 1 Mg Vial IM Q15MIN PRN BG <70, and no IV access Heparin Sodium (Porcine) 5,000 unit 07/16/25 17:15 07/17/25 05:35 Heparin Sod Inj 5000 Unit/Ml Vial SC 07/30/25 17:14 5,000 unit Q8HR MARILYNN Administration Insulin Human Lispro 0 unit 07/16/25 21:00 07/17/25 11:23 Insulin Lispro (Admelog) 1 Unit/0.01 Ml Unit SC 08/15/25 20:59 Not Given ACHS MARILYNN Protocol Ondansetron HCl 4 mg 07/16/25 16:58 Ondansetron Inj 2 Mg/Ml Inj 2 Ml IVP 08/15/25 16:57 Q6H PRN NAUSEA OR VOMITING Protocol Sennosides 1 tab 07/16/25 16:58 Senna Tablet PO 08/15/25 16:57 QDAY PRN constipation Protocol Plan Tsering Cuenca is 54 yr male with PMH of HTN, insulin-dependent type 2 diabetes, HLD, GERD presenting to ED due to weakness. Patient stated that he was at [facility] earlier this morning when the nurse noted that he was not looking well. Started feeling weak, dizzy, diaphoretic. pt reports symptoms of dysphagia solids>liquids, and subsequent poor po intake and electrolyte abnormalities, pending GI evaluation for possible egd. pt also reports dizziness and vision changes post his knee surgery in may 2025, that is constant and new. pending ct head. #dysphagia ddx consider oropharyngal vs esophageal, pt reports having difficulty swallowing solids, but can pass liquids and puree consistentency foods. favor structural etiology of this patients dysphagia given solids> liquids, consider intrinsic vs extrinsic etiologies such as mediastinal mass, vs stricture vs malignancies pt reports having lost 13 lbs, and had stopped taking monjaro 3 weeks ago. pt endorses having appetite but an inability to eat. Plan - consult GI, appreciate recs, possible egd #dizziness #Blurry vision pt reports having blurry vision and dizziness that have been constant and started after his surgery of his knee in may. pt has no focal neurologic deficits on exam. consider bppv, vs structural etiologies that contribute to this presentation. the dizziness is not positional, making bppv less likely, orthostatic vitals continue to be negative. Plan - CT head #Presyncope # Electrolyte abnormalities 2/2 poor po intake (see #dysphagia above) - improved Presyncope likely due to electrolyte abnormalities including calcium 7.9, magnesium<0.05. Patient was starting to feel weak and dizzy while in the clinic to see his PCP this morning. States that he has lost 13 pounds and has only been eating a mostly liquid diet, appetite preserved (not taking monjouro for past 3 weeks) Vitals are stable, other lab values unremarkable. EKG normal sinus rhythm with no acute ST changes. Work up for hypocalcemia in Oct 2022 for PTH and Vit d WNL. - Orthostatic vitals negative - Calcium carbonate 600 qd #Elevated troponins - resolving Likely NSTEMI II in setting of his dehydration and decreased oral intake and hypotension on arrival. Trops 0.075 in ED. he denies chest pain, shortness of breath, abdominal pain, diaphoresis. EKG is negative for any acute ST changes. Normal sinus rhythm. -downtrending # Insulin-dependent type 2 diabetes On admission initial glucose 217. Last A1c 6.8 on 10/25/2022. Per chart review patient takes 25 units of glargine, 25 mg Jardiance, metformin 1000 twice daily, Mounjaro 5 mg (pt has not been taking for the past 3 weeks) -Held home medications -Bedside blood glucose checks ACHS -Insulin lispro sliding scale -Carb consistent low diet -A1c 5.8 #HTN per chart review patient takes amlodipine 10 mg. - Right now BP stable #Hyperlipidemia Atorvastatin 40 mg daily -lipid pannel, low cholesterol, low triglycerides, low hdl Health maintenance: Dispo: tele, pending head ct for evaluation of blurred vision and dizziness , and possible egd with dr stuart. FEN: low carb DVT prophylaxis: Subcu heparin CODE STATUS: Full code Plan discussed with Dr. Vieyra, Dr Joshi, and Dr. Cris White MD PGY1 Attending Provider Attestation/Addendum 54-year-old male with multiple comorbidities including hypertension, hyperlipidemia and type 2 diabetes mellitus who presented to the hospital for generalized weakness. Patient takes Mounjaro and endorses about 13 pound weight loss and noted to have electrolyte abnormalities. As a result, plan to admit the patient for electrolyte abnormalities and presyncope.I reviewed above note and agree with findings and plans. I have also personally examined the patient with medicine team and went over assessment and plan with medical team including process engineering intern and resident physician.
--- NOTE | 2025-07-17 16:10 | ESCONSULT_ITS ---
HPI Data of Consult Requesting Physician: Kimberlee Lynch MD Admitting Provider: Kimberlee Lynch MD Attending Provider: Kimberlee Lynch MD Primary Care Provider: JONE Tadeo Consult Narrative Reason for consult: Dysphagia and melena History of present illness: 54-year-old male with history of HTN, insulin-dependent type 2 DM, HLD, and GERD (on omeprazole), admitted for presyncope and electrolyte abnormalities. GI consulted for dysphagia and reported black stools. Patient reports about one month of progressive dysphagia, mainly to solids such as meat and tortillas, with preserved tolerance for liquids and soft foods. He describes inability to initiate swallow with solids, leading to nausea but no coughing or choking. Denies odynophagia. He endorses 13 lb weight loss and decreased appetite since May knee surgery, though continues to feel hungry. He further reports approximately 10 episodes of black stools over the past 15 days, most recent yesterday morning (described as dark/black, sometimes greenish). Denies hematemesis, bright red blood per rectum, or vomiting blood. No prior EGD. No alcohol or tobacco use. Family history notable for HTN and DM. ROS: * Positive: dysphagia (solids > liquids), nausea with solids, melena, weight loss * Negative: odynophagia, hematemesis, hematochezia, chest pain, SOB, fever cc:: cc: Kimberlee Lynch MD Exam Vital Signs Temp Pulse Resp BP Pulse Ox O2 Del Method 96.8 F 95 17 114/72 92 L Room Air 07/17/25 12:07/17/25 12:07/17/25 12:07/17/25 12:07/17/25 12:07/17/25 12:00 Narrative Exam General: Middle-aged male, obese, sitting up in bed, no acute distress. HEENT: Oropharynx clear, moist mucous membranes, no oral lesions. Cardiac: Regular rate and rhythm, no murmurs, rubs, or gallops. Respiratory: Lungs clear bilaterally, no wheezes, rales, or rhonchi. Normal work of breathing. Abdomen: Soft, nondistended, normoactive bowel sounds, non-tender to palpation. No hepatosplenomegaly. Extremities: No cyanosis, clubbing, or edema. Skin warm and well-perfused. Neuro: Alert and oriented ?3, no focal motor or sensory deficits noted. Results Labs 07/17/25 04:43 07/17/25 13:18 Labs: Short CBC 07/17/25 Range/Units 04:43 WBC 5.1 D (3.8-10.6) Thou/mm3 Hgb 12.1 L (13.5-16.0) g/dL Hct 37.0 L (41.0-53.0) % Plt Count 201 (140-440) Thou/mm3 BMP 07/16/25 07/17/25 07/17/25 22:40 04:43 13:18 Sodium 145 146 H 143 Potassium 3.3 L D 3.2 L 4.2 D Chloride 108 H 107 107 Carbon Dioxide 24.3 22.9 21.4 BUN 5 L < 5 L < 5 L Creatinine 0.5 L 0.5 L 0.5 L Glucose 108 H D 102 127 H Calcium 6.9 L 7.4 L 7.3 L Cardiac Enzymes 07/16/25 07/16/25 07/17/25 Range/Units 17:24 22:40 04:43 Troponin I 0.075 H* 0.084 H* 0.067 H* (0.0-0.045) ng/mL Liver Function 07/17/25 07/17/25 Range/Units 04:43 13:18 Total Bilirubin 0.7 0.3 (0.3-1.2) mg/dL AST 49 H 67 H (0-34) U/L ALT 28 34 (10-49) U/L Alkaline Phosphatase 62 65 (46-116) U/L Albumin 2.8 L D 2.9 L (3.5-5.0) gm/dL Quality Measures Quality Measures VTE prophylaxis Medications Home Medications and Allergies Home Medications ?Medication ?Instructions ?Recorded ?Confirmed ?Type atorvastatin 40 mg tablet 40 mg PO HS 09/25/22 5 History amlodipine 10 mg tablet 10 mg PO HS 05/29/25 5 History empagliflozin 25 mg tablet 25 mg PO QAM 05/29/2507/16 History (Jardiance) ergocalciferol (vitamin D2) 1,250 1,250 mcg PO QWEEK 0 05/29/25 07/16/25 History mcg (50,000 unit) capsule metformin 1,000 mg tablet 1,000 mg PO BID 05/29/25 History omeprazole 40 mg capsule,delayed 40 mg PO DAILY 07/16/25 History release insulin degludec 100 unit/mL (3 15 unit subcut HS 06/2507/16/25 History mL) subcutaneous pen (Tresiba FlexTouch U-100 insulin) Held on 07/17/25. Instructions: Resume on 07/31/25. Resume after PCP follow up. montelukast 10 mg tablet 10 mg PO QDAY 07/16/2507/16 History tamsulosin 0.4 mg capsule 0.4 mg PO Q24H 07/16/2506/25 History Allergies Allergy/AdvReac Type Severity Reaction Status Date / Time No Known Allergies Allergy Verified 07/16/25 12:28 Visit Medications Acetaminophen (Acetaminophen 325 Mg Tablet) 650 mg PO Q6H PRN PRN Reason: Fever >100.4 or pain Stop: 08/15/25 16:57 Calcium Carbonate (Calcium Carbonate 600 Mg Tablet) 600 mg PO QDAY [facility] Stop: 08/16/25 08:59 Last Admin: 07/17/25 09:06 Dose: 600 mg Dextrose (Dextrose 50%-Water Inj 50 Ml Syringe) 25 ml IV Q15MIN PRN PRN Reason: BG 50-70 responsive npo pt Stop: 08/15/25 17:02 Dextrose (Dextrose 50%-Water Inj 50 Ml Syringe) 50 ml IV Q15MIN PRN PRN Reason: BG <50 OR BG <70 & pt unresponsive Stop: 08/15/25 17:02 Glucagon (Glucagon Inj 1 Mg Vial) 1 mg IM Q15MIN PRN PRN Reason: BG <70, and no IV access Heparin Sodium (Porcine) (Heparin Sod Inj 5000 Unit/Ml Vial) 5,000 unit SC Q8HR [facility] Stop: 07/30/25 17:14 Last Admin: 07/17/25 05:35 Dose: 5,000 unit Insulin Human Lispro (Insulin Lispro (Admelog) 1 Unit/0.01 Ml Unit) 0 unit SC [facility]; Protocol Stop: 08/15/25 20:59 Last Admin: 07/17/25 11:23 Dose: Not Given Ondansetron HCl (Ondansetron Inj 2 Mg/Ml Inj 2 Ml) 4 mg IVP Q6H PRN; Protocol PRN Reason: NAUSEA OR VOMITING Stop: 08/15/25 16:57 Sennosides (Senna Tablet) 1 tab PO QDAY PRN; Protocol PRN Reason: constipation Stop: 08/15/25 16:57 Discontinued Medications Lactated Ringer's (Lactated Ringers) 1,000 mls @ 999 mls/hr IV .Q1H1M ONE Stop: 07/16/25 15:08 Last Admin: 07/16/25 17:12 Dose: 999 mls/hr Magnesium Sulfate (Magnesium Sulfate Ivpb) 2 gm in 50 mls @ 25 mls/hr IV X1 ONE Stop: 07/16/25 17:57 Last Infusion: 07/16/25 19:15 Dose: Infused Calcium Gluconate/Sodium Chloride (Calcium Gluc/Ns 1000mg Ivpb) 1,000 mg in 50 mls @ 50 mls/hr IV X1 ONE Stop: 07/16/25 17:14 Last Admin: 07/16/25 17:43 Dose: 50 mls/hr Magnesium Sulfate (Magnesium Sulfate Ivpb) 4 gm in 50 mls @ 12.5 mls/hr IV X1 ONE Stop: 07/16/25 21:59 Last Infusion: 07/16/25 23:10 Dose: Infused Magnesium Sulfate (Magnesium Sulfate Ivpb) 4 gm in 50 mls @ 12.5 mls/hr IV Q4H MARILYNN Stop: 07/17/25 05:59 Last Admin: 07/17/25 02:29 Dose: 12.5 mls/hr Potassium Chloride (Kcl Ivpb) 10 meq in 100 mls @ 100 mls/hr IV Q1H ONE Stop: 07/17/25 03:20 Last Infusion: 07/17/25 03:35 Dose: Infused Potassium Chloride (Kcl Ivpb) 10 meq in 100 mls @ 100 mls/hr IV Q1H MARILYNN Stop: 07/17/25 10:06 Last Admin: 07/17/25 11:11 Dose: 50 mls/hr Potassium Chloride (Potassium Chloride 20 Meq Tabcr) 40 meq PO X1 ONE Stop: 07/17/25 08:08 Last Admin: 07/17/25 09:06 Dose: 40 meq Assessment & Plan Plan 54-year-old male with HTN, DM, HLD, GERD presenting with progressive dysphagia to solids and melena. Concerning for possible esophageal stricture, mass, or ulcer disease given solid-predominant dysphagia and weight loss. Melena suggests upper GI bleed (peptic ulcer disease, esophagitis, gastritis, malignancy). No hematemesis reported. # Dysphagia One month of progressive difficulty swallowing solids (meat, tortillas) with nausea and inability to initiate swallow, liquids tolerated. Associated with 13 lb weight loss. No prior EGD. Concern for structural pathology (stricture, ring, malignancy) versus less likely motility disorder. Plan: * Clear liquid diet until 9 AM tomorrow, then NPO for EGD. * EGD tomorrow with possible biopsy/dilation. * IV pantoprazole 40 mg BID # Melena 10 black stools over the past 15 days, last episode yesterday. No hematemesis or hematochezia. Differential includes peptic ulcer disease, erosive esophagitis, gastric malignancy. Plan: * EGD tomorrow for diagnostic evaluation and/or intervention. * Monitor H/H, transfuse if Hgb <7. * Order iron studies to assess for iron deficiency anemia. * Trend vitals, monitor for overt GI bleeding. # GERD On omeprazole at home. Plan: Switch to IV PPI as above. ----- Plan discussed with attending physician Dr. Vamsi Velarde MD PGY-1 Internal Medicine Attending Provider Attestation/Addendum I personally evaluated the patient, went over the labs and imaging studies and examined the patient I completely agree with the assessment of the internal medicine resident And we will proceed with the following Fiberoptic esophagogastroduodenoscopy with possible biopsy possible therapeutic intervention under intravenous moderate sedation scheduled tentatively for tomorrow Informed consent obtained Clear liquid diet till 9 AM tomorrow then n.p.o. Will follow the patient Thank you very much for the opportunity to participate in the care of this patient
--- NOTE | 2025-07-17 16:10 | XR_ITS ---
Examination: CT brain head without contrast. 2-D sagittal coronal reconstructions Date and time of exam:July 17, 2025, 1632 hrs., Comparison March 28, 2025 Indications: Onset blurred vision and dizziness episodes today CTDI: vol (mGy):54.8 DLP: (mGycm):1210 Technique: Multiple CT axial sections of the brain have been obtained, 5 mm slice thickness. Contrast has not been administered. 2-D sagittal, coronal reconstructions have been obtained Low dose protocols were performed. One or more of the following dose reduction techniques were used; automated exposure control, adjustment of the mA and/or KV according to patient size, use of iterative reconstruction technique. Findings: No significant ventricular enlargement. Intra-axial or extra-axial hemorrhage density is not seen. No mass effect or midline shift Basal cisterns are not remarkable. Fourth ventricle is midline. Cranial vault intact. Impression: Negative for acute hemorrhage, mass effect or midline shift As clinically warranted, consider brain MRI MRA without contrast, stroke protocol follow-up to best assess for ischemic change
[2025-07-17 20:20] LABS: Iron 41 mcg/dL (65-175); Percent Iron Saturation 25 % (20-55); Total Iron Binding Capacity 161 mcg/dL (250-425); Unsaturated Iron Binding 120 (225-295)
[2025-07-18] VITALS (19 sets, daily range): BP systolic 110–151; BP diastolic 76–99; PULSE 74–111; RESP 14–97; TEMP 36.1–36.7; O2SAT 94–99
[2025-07-18 05:29] LABS: Basophils # (Auto) 0.1 Thou/mm3 (0.0-0.2); Basophils % (Auto) 1 % (0-2.5); Eosinophils # (Auto) 0.5 Thou/mm3 (0.0-0.5); Eosinophils % (Auto) 9 % (0-10); Hematocrit 36.3 % (41.0-53.0); Hemoglobin 12.0 g/dL (13.5-16.0); Immature Granulocytes Auto 0.03 Thou/mm3 (0.00-0.00); Lymphocytes # (Auto) 1.8 Thou/mm3 (1.0-4.8); Lymphocytes % (Auto) 33 % (10-50); Mean Corpuscular HGB Conc 33.1 g/dl (31.0-37.0); Mean Corpuscular Hemoglobin 29.6 pg (25.0-35.0); Mean Corpuscular Volume 89 fL (80-100); Monocytes # (Auto) 0.6 Thou/mm3 (0.0-0.8); Monocytes % (Auto) 10 % (0-12); Neutrophils # (Auto) 2.6 Thou/mm3 (1.8-7.7); Neutrophils % (Auto) 47 % (37-80); Nucleated Red Blood Cell # 0.00 Thou/mm3 (0.00-0.00); Nucleated Red Blood Cell % 0 /100 WBC (0); Platelet Count 202 Thou/mm3 (140-440); RDW Standard Deviation 43.7 fL (35.1-43.9); Red Blood Count 4.06 Miln/mm3 (4.50-5.90); White Blood Count 5.6 Thou/mm3 (3.8-10.6)
[2025-07-18 05:48] LABS: Alanine Aminotransferase 31 U/L (10-49); Albumin, Serum 2.9 gm/dL (3.5-5.0); Albumin/Globulin Ratio 1.7 (1.2-2.2); Alkaline Phosphatase 67 U/L (46-116); Anion Gap 13 (7-16); Aspartate Amino Transferase 48 U/L (0-34); BUN/Creatinine Ratio 10 Ratio (12-20); Bilirubin,Total 0.8 mg/dL (0.3-1.2); Blood Urea Nitrogen < 5 mg/dL (9-23); Calcium 7.7 mg/dL (8.3-10.6); Calcium (Corrected) 8.6 mg/dL (8.5-10.1); Carbon Dioxide 20.7 mMol/L (20.0-31.0); Chloride 108 mMol/L (98-107); Creatinine (Component) 0.5 mg/dL (0.6-1.3); Estimated Creatinine Clearance 191.4 mL/min (>60); Globulin 1.7 gm/dL (2.3-3.5); Glucose 97 mg/dL (74-106); Osmolality,Calculated 280 (275-295); Potassium 3.7 mMol/L (3.4-5.1); Sodium 142 mMol/L (136-145); Total Protein 4.6 gm/dL (5.7-8.2); eGFR > 60 See Note
[2025-07-18] MEDS: HEPARIN SOD INJ 5000 UNIT/ML VIAL SC ×2 (06:26→21:26)
--- NOTE | 2025-07-18 07:49 | ESPR_ITS ---
Documentation for date of: 07/18/25 Subjective Subjective Interval history: Mr. Tsering Cuenca is 54 yr male with PMH of HTN, insulin-dependent type 2 diabetes, HLD, GERD presenting to ED due to weakness. Patient stated that he was at [facility] earlier this morning when the nurse noted that he was not looking well. Advised to come into the hospital. Patient stated that he is feeling weak with difficulty in walking at times, decreased appetite after his knee surgery in May 2025. Has only been drinking liquids and soups endorsing weight loss of 13 pounds initially suspected to be 2/2 mounjaro use, however pt reports that he last used mounjaro 3 weeks ago.Had BM 07/16 in the AM endorses dysphagia with solids, but is able to pass liquds, endorses nause, and states that he has an appetite but that he is unable to tolerate solid foods. 07/17/2025: repleated pts electrolytes and were planning to discharge pt, however he states that he is unable to pass solid foods despite his attempts to. plan for GI consult for possible egd, speech referral and undergoing workup for blurry vision with ct head. 07/18/2025: patient seen and examined at bedside. tolerated liquids during breakfast, not solids. npo at 9am, pending egd with possible dilation today with GI. Electrolytes are better today. CT head Negative for acute hemorrhage, mass effect or midline shift, blurry vision should be evaluated outpatient. Exam Vital Signs Temp Pulse Resp BP Pulse Ox O2 Del Method 97.5 F 74 16 138/88 H 97 Room Air 07/18/25 04:00 07/18/25 04:00 07/18/25 04:00 07/18/25 04:00 07/18/25 04:00 07/18/25 04:00 Narrative Exam General: Middle-aged male, obese, sitting up in bed, no acute distress. HEENT: Oropharynx clear, moist mucous membranes, no oral lesions. Cardiac: Regular rate and rhythm, no murmurs, rubs, or gallops. Respiratory: Lungs clear bilaterally, no wheezes, rales, or rhonchi. Normal work of breathing. Abdomen: Soft, nondistended, normoactive bowel sounds, non-tender to palpation. No hepatosplenomegaly. Extremities: No cyanosis, clubbing, or edema. Skin warm and well-perfused. Neuro: Alert and oriented ?3, no focal motor or sensory deficits noted. Objective Labs 07/18/25 04:28 07/18/25 04:28 Labs: Laboratory Results - last 24 hr 07/17/25 07/17/25 07/18/25 13:18 19:15 04:28 WBC 5.6 RBC 4.06 L Hgb 12.0 L Hct 36.3 L MCV 89 MCH 29.6 MCHC 33.1 RDW Std Deviation 43.7 Plt Count 202 Neut % (Auto) 47 Lymph % (Auto) 33 Jack % (Auto) 10 Eos % (Auto) 9 Baso % (Auto) 1 Neut # (Auto) 2.6 Lymph # (Auto) 1.8 Jack # (Auto) 0.6 Eos # (Auto) 0.5 Baso # (Auto) 0.1 Immature Gran # (Auto) 0.03 H Absolute Nucleated RBC 0.00 Immature Gran % 1 H Nucleated RBC % 0 Sodium 143 142 Potassium 4.2 D 3.7 D Chloride 107 108 H Carbon Dioxide 21.4 20.7 Anion Gap 15 13 BUN < 5 L < 5 L Creatinine 0.5 L 0.5 L Estim Creat Clear Calc 191.4 191.4 eGFR > 60 > 60 BUN/Creatinine Ratio 10 L 10 L Glucose 127 H 97 Calculated Osmolality 284 280 Calcium 7.3 L 7.7 L Corrected Calcium 8.2 L 8.6 Iron 41 L TIBC 161 L Iron Saturation 25 Unsat Iron Binding 120 L Total Bilirubin 0.3 0.8 D AST 67 H 48 H ALT 34 31 Alkaline Phosphatase 65 67 Total Protein 5.6 L 4.6 L Albumin 2.9 L 2.9 L Globulin 2.7 1.7 L Albumin/Globulin Ratio 1.1 L 1.7 Quality Measures Quality Measures VTE prophylaxis Assessment & Plan Assessment Current Active Medications: Generic Name Dose Route Start Last Admin Trade Name Freq PRN Reason Stop Dose Admin Acetaminophen 650 mg 07/16/25 16:58 Acetaminophen 325 Mg Tablet PO 08/15/25 16:57 Q6H PRN Fever >100.4 or pain Calcium Carbonate 600 mg 07/17/25 09:00 07/17/25 09:06 Calcium Carbonate 600 Mg Tablet PO 08/16/25 08:59 600 mg QDAY MARILYNN Administration Dextrose 25 ml 07/16/25 17:03 Dextrose 50%-Water Inj 50 Ml Syringe IV 08/15/25 17:02 Q15MIN PRN BG 50-70 responsive npo pt Dextrose 50 ml 07/16/25 17:03 Dextrose 50%-Water Inj 50 Ml Syringe IV 08/15/25 17:02 Q15MIN PRN BG <50 OR BG <70 & pt unresponsive Glucagon 1 mg 07/16/25 17:03 Glucagon Inj 1 Mg Vial IM Q15MIN PRN BG <70, and no IV access Heparin Sodium (Porcine) 5,000 unit 07/16/25 17:15 07/18/25 06:26 Heparin Sod Inj 5000 Unit/Ml Vial SC 07/30/25 17:14 5,000 unit Q8HR MARILYNN Administration Insulin Human Lispro 0 unit 07/16/25 21:00 07/17/25 20:54 Insulin Lispro (Admelog) 1 Unit/0.01 Ml Unit SC 08/15/25 20:59 Not Given ACHS MARILYNN Protocol Ondansetron HCl 4 mg 07/16/25 16:58 Ondansetron Inj 2 Mg/Ml Inj 2 Ml IVP 08/15/25 16:57 Q6H PRN NAUSEA OR VOMITING Protocol Pantoprazole Sodium 40 mg 07/17/25 21:00 07/17/25 20:59 Pantoprazole Inj 40 Mg Vial IVP 08/16/25 20:59 40 mg BID MARILYNN Administration Sennosides 1 tab 07/16/25 16:58 Senna Tablet PO 08/15/25 16:57 QDAY PRN constipation Protocol Plan Tsering Cuenca is 54 yr male with PMH of HTN, insulin-dependent type 2 diabetes, HLD, GERD presenting to ED due to weakness. Patient stated that he was at [facility] earlier this morning when the nurse noted that he was not looking well. Started feeling weak, dizzy, diaphoretic. pt reports symptoms of dysphagia solids>liquids, and subsequent poor po intake and electrolyte abnormalities, pending GI evaluation for possible egd. pt also reports dizziness and vision changes post his knee surgery in may 2025, that is constant and new. ct head ruled out stroke. #dysphagia ddx consider oropharyngal vs esophageal, pt reports having difficulty swallowing solids, but can pass liquids and puree consistentency foods. favor structural etiology of this patients dysphagia given solids> liquids, consider intrinsic vs extrinsic etiologies such as mediastinal mass, vs stricture vs malignancies pt reports having lost 13 lbs, and had stopped taking monjaro 3 weeks ago. pt endorses having appetite but an inability to eat. Plan - npo pending scope. - consult GI, appreciate recs, possible egd #dizziness #Blurry vision - stable pt reports having blurry vision and dizziness that have been constant and started after his surgery of his knee in may. pt has no focal neurologic deficits on exam. consider bppv, vs structural etiologies that contribute to this presentation. the dizziness is not positional, making bppv less likely, orthostatic vitals continue to be negative. Plan - CT head Negative for acute hemorrhage, mass effect or midline shift - recommend outpatient ophthalmology work up of vision changes #Presyncope #Electrolyte abnormalities 2/2 poor po intake (see #dysphagia above) - improved Presyncope likely due to electrolyte abnormalities including calcium 7.9, magnesium<0.05. Patient was starting to feel weak and dizzy while in the clinic to see his PCP this morning. States that he has lost 13 pounds and has only been eating a mostly liquid diet, appetite preserved (not taking monjouro for past 3 weeks) Vitals are stable, other lab values unremarkable. EKG normal sinus rhythm with no acute ST changes. Work up for hypocalcemia in Oct 2022 for PTH and Vit d WNL. - Orthostatic vitals negative - Calcium carbonate 600 qd #Elevated troponins - resolved Likely NSTEMI II in setting of his dehydration and decreased oral intake and hypotension on arrival. Trops 0.075 in ED. he denies chest pain, shortness of breath, abdominal pain, diaphoresis. EKG is negative for any acute ST changes. Normal sinus rhythm. -downtrending # Insulin-dependent type 2 diabetes On admission initial glucose 217. Last A1c 6.8 on 10/25/2022. Per chart review patient takes 25 units of glargine, 25 mg Jardiance, metformin 1000 twice daily, Mounjaro 5 mg (pt has not been taking for the past 3 weeks) -Held home medications -Bedside blood glucose checks ACHS -Insulin lispro sliding scale -Carb consistent low diet, pt only able totolerate liquids. -A1c 5.8 #HTN per chart review patient takes amlodipine 10 mg. - Right now BP stable #Hyperlipidemia Atorvastatin 40 mg daily -lipid pannel, low cholesterol, low triglycerides, low hdl Health maintenance: Dispo: tele, no stroke on head ct for evaluation of blurred vision and dizziness , and pending egd with dr stuart. FEN: low carb DVT prophylaxis: Subcu heparin CODE STATUS: Full code Plan discussed with Dr Joshi, and Dr. Cris White MD PGY1 Attending Provider Attestation/Addendum 54-year-old male with multiple comorbidities including hypertension, hyperlipidemia and type 2 diabetes mellitus who presented to the hospital for generalized weakness. Patient takes Mounjaro and endorses about 13 pound weight loss and noted to have electrolyte abnormalities. As a result, plan to admit the patient for electrolyte abnormalities and presyncope. Plan was to discharge the patient yesterday however noted to have dysphagia and plan to obtain a GI consult. Anticipate discharge after EGD. I reviewed above note and agree with findings and plans. I have also personally examined the patient with medicine team and went over assessment and plan with medical team including director internal communications and resident physician.
[2025-07-18] MEDS: CALCIUM CARBONATE 600 MG TABLET PO (08:09)
[2025-07-18] MEDS: POTASSIUM CHL 10 mEq IVPB 10 MEQ/100 ML BAG 100 MEQ IV (09:33)
--- NOTE | 2025-07-18 15:22 | PC.SS ---
Rounding note: pending gi rec. and speech pending.
--- NOTE | 2025-07-18 20:55 | SUR.PHASEI ---
2036 To PACU able to lift head off of pillow, following simple commands continue to monitor pt vital signs and status.
--- NOTE | 2025-07-18 21:17 | SUR.PHASEI ---
2109 Transfer to room 263 in stable condition, no complaints, no s/s of distress noted with all belongings.
[2025-07-19] VITALS (9 sets, daily range): BP systolic 131–137; BP diastolic 80–94; PULSE 74–95; RESP 18–99; TEMP 36.1–37.1; O2SAT 97–100; BMI 37.2
[2025-07-19 06:03] LABS: Basophils # (Auto) 0.1 Thou/mm3 (0.0-0.2); Basophils % (Auto) 1 % (0-2.5); Eosinophils # (Auto) 0.5 Thou/mm3 (0.0-0.5); Eosinophils % (Auto) 8 % (0-10); Hematocrit 39.9 % (41.0-53.0); Hemoglobin 12.9 g/dL (13.5-16.0); Immature Granulocytes Auto 0.04 Thou/mm3 (0.00-0.00); Lymphocytes # (Auto) 2.1 Thou/mm3 (1.0-4.8); Lymphocytes % (Auto) 33 % (10-50); Mean Corpuscular HGB Conc 32.3 g/dl (31.0-37.0); Mean Corpuscular Hemoglobin 29.4 pg (25.0-35.0); Mean Corpuscular Volume 91 fL (80-100); Monocytes # (Auto) 0.6 Thou/mm3 (0.0-0.8); Monocytes % (Auto) 10 % (0-12); Neutrophils # (Auto) 3.0 Thou/mm3 (1.8-7.7); Neutrophils % (Auto) 48 % (37-80); Nucleated Red Blood Cell # 0.00 Thou/mm3 (0.00-0.00); Nucleated Red Blood Cell % 0 /100 WBC (0); Platelet Count 207 Thou/mm3 (140-440); RDW Standard Deviation 43.8 fL (35.1-43.9); Red Blood Count 4.39 Miln/mm3 (4.50-5.90); White Blood Count 6.3 Thou/mm3 (3.8-10.6)
[2025-07-19 06:37] LABS: Alanine Aminotransferase 32 U/L (10-49); Albumin, Serum 3.1 gm/dL (3.5-5.0); Albumin/Globulin Ratio 1.6 (1.2-2.2); Alkaline Phosphatase 72 U/L (46-116); Anion Gap 18 (7-16); Aspartate Amino Transferase 46 U/L (0-34); BUN/Creatinine Ratio 7 Ratio (12-20); Bilirubin,Total 0.8 mg/dL (0.3-1.2); Blood Urea Nitrogen < 5 mg/dL (9-23); Calcium 8.9 mg/dL (8.3-10.6); Calcium (Corrected) 9.6 mg/dL (8.5-10.1); Carbon Dioxide 18.3 mMol/L (20.0-31.0); Chloride 107 mMol/L (98-107); Creatinine (Component) 0.7 mg/dL (0.6-1.3); Estimated Creatinine Clearance 136.7 mL/min (>60); Globulin 1.9 gm/dL (2.3-3.5); Glucose 102 mg/dL (74-106); Osmolality,Calculated 282 (275-295); Potassium 4.1 mMol/L (3.4-5.1); Sodium 143 mMol/L (136-145); Total Protein 5.0 gm/dL (5.7-8.2); eGFR > 60 See Note
--- NOTE | 2025-07-19 07:40 | ESDS_ITS ---
<Statement entered by Sandra Betancourt DO - 07/20/25 07:59> Repeat labs show that patient remains acidotic. Will hold discharge. Please refer to event note. Patient's daughter and are at bedside this afternoon upon discussing with patient that he will remain inpatient for 1 more night due to acidosis and electrolyte imbalance which appears to be chronic. Will further workup from renal standpoint. <Statement entered by Taylor Vieyra MD - 07/19/25 15:01> Note reviewed, I agree with most of its contents and agree with the patient's care as documented by Dr. White. The patient's management plan was discussed with my attending physician Dr. Betancourt. Taylor Vieyra, PGY-2 Planned Discharge Date 07/19/25 DS: Providers Provider Date of admission: 07/16/25 16:54 Primary care physician: JONE Tadeo Admitting Provider: Kimberlee Lynch MD Attending Provider on Admission: Sandra Betancourt DO Consults: 07/17/25 16:09 Consult to Gastroenterology Routine Comment: dysphagia Consulting Provider: Zayda Agustin 07/18/25 09:43 Referral Speech Therapy Routine Comment: Attending Provider on DC: Sandra Betancourt DO Discharging Provider: Sandra Betancourt DO DS: Diagnosis Problem List Completed Was Problem List Reviewed/Reconciled?: Yes Hospital Course Hospital Course Hospital course: Hospital Course Mr. Tsering Cuenca is 54 yr male with PMH of HTN, insulin-dependent type 2 diabetes, HLD, GERD presenting to ED due to weakness and dizziness, he reports that he has had poor po intake 2/2 difficulty swallowing, he was found to have electrolyte derangements likely 2/2 poor po intake. He had not been taking mounjaro for over 3 weeks, but endorses loosing 13 lbs after his knee surgery in may 2025. CT head Negative for acute hemorrhage, mass effect or midline shift given pt reported blurred vision. GI was consulted, to evaluate his dysphagia. EGD revealed proximal stricture which was dilated, and biopsies were taken of the upper and lower esophagus, esophagitis, and errythematous duodenopathy was noted. post dilation pt was able to tolerate regular diet without difficulty swallowing, his electrolytes repleted as indicated and he was stable and medically cleared for discharge. Discharge instructions Hold your lantus insulin until your see your PCP. Please record your sugars daily before and after meals to adjust as needed. Goal blood sugar readings 1-2 hrs after meals is less than 180. Stop taking taking meloxicam and Mounjaro. Mounjaro will continue to lower your appetite and may worsen your symptoms. Resume other previous medications. Repeat your labs in 1 weeks to check for magnesium and calcium levels. Follow up with your PCP in 1 week. Follow up with gastroenterology (GI) for endoscopy biopsy results. Diagnoses #dysphagia-resolved #esophageal stricture s/p dilation #dizziness #Blurry vision - stable #Presyncope #Electrolyte abnormalities 2/2 poor po intake (see #dysphagia above) - improved #Elevated troponins - resolved # Insulin-dependent type 2 diabetes-A1c 5.8 #HTN #Hyperlipidemia Plan discussed with Dr. Vieyra, Dr Joshi, and Dr. Asia White MD PGY1 Time Spent with Patient Time attestation: Total time spent providing and/or coordinating discharge services: Time spent: Greater than 30 minutes Exam Vital Signs Temp Pulse Resp BP Pulse Ox O2 Del Method O2 Flow Rate 98.7 F 95 18 135/94 H 100 Room Air 3 07/19/25 04:00 07/19/25 06:44 07/19/25 06:44 07/19/25 04:00 07/19/25 04:00 07/19/25 04:00 07/18/25 21:18 Narrative Exam General: Middle-aged male, obese, sitting up in bed, no acute distress. HEENT: Oropharynx clear, moist mucous membranes, no oral lesions. s/p dilation of esophagus Cardiac: Regular rate and rhythm, no murmurs, rubs, or gallops. Respiratory: Lungs clear bilaterally, no wheezes, rales, or rhonchi. Normal work of breathing. Abdomen: Soft, nondistended, normoactive bowel sounds, non-tender to palpation. No hepatosplenomegaly. Extremities: No cyanosis, clubbing, or edema. Skin warm and well-perfused. Neuro: Alert and oriented ?3, no focal motor or sensory deficits noted. Discharge Plan Plan Patient Disposition: HOME (Self Care) Patient condition on transfer: Stable Prescriptions/Referrals Prescriptions/Med Rec: Continued cyclobenzaprine 5 mg tablet 5 mg PO QHS PRN (Reason: muscle spasm) Qty: 30 0RF gabapentin 300 mg capsule 300 mg PO .qhs Qty: 30 0RF atorvastatin 40 mg tablet 40 mg PO HS Patient Comments: TAKE 1 TABLET BY MOUTH EVERY DAY FOR 90 DAYS Jardiance 25 mg tablet 25 mg PO QAM omeprazole 40 mg capsule,delayed release(DR/EC) 40 mg PO DAILY Patient Comments: TOME 1 CAPSULA POR LA BOCA ANTES DE COMER BRENNA VES AL MICHELA metformin 1,000 mg tablet 1,000 mg PO BID Patient Comments: TOME 1 TABLETA POR LA BOCA DOS VECES AL MICHELA CON COMIDA PARA DIABETES amlodipine 10 mg tablet 10 mg PO HS Patient Comments: TOME 1 TABLETA POR LA BOCA EN LA NOCHE ergocalciferol (vitamin D2) 1,250 mcg (50,000 unit) capsule 1,250 mcg PO QWEEK Patient Comments: TOME 1 C PSULA POR V A ORAL EVERY WEEK tamsulosin 0.4 mg capsule 0.4 mg PO Q24H montelukast 10 mg tablet 10 mg PO QDAY Patient Comments: TOME BRENNA TABLETA POR V A ORAL AL ACOSTARSE Held insulin degludec [Tresiba FlexTouch U-100] 100 unit/mL (3 mL) insulin pen 15 unit SUBCUT HS Hold Instructions: Resume on 07/31/25. Resume after PCP follow up. Patient Comments: INJECT 15 UNITS SUBCUTANEOUSLY NIGHTLY AT BEDTIME Discontinued insulin glargine [Lantus Solostar U-100 Insulin] 100 unit/mL (3 mL) insulin pen 25 unit SUBCUT HS Patient Comments: INJECT 28 UNITS SUBCUTANEOUS DAILY meloxicam 15 mg tablet 15 mg PO HS Patient Comments: TOME BRENNA TABLETA POR V A ORAL CADA NOCHE Referrals: Zayda Agustin MD [Physician, Gastroenterology] Vika Beaulieu FNP [Primary Care Provider] Patient/Caregiver Discharge Instructions Other Discharge Activity Instructions:: Hold your lantus insulin until your see your PCP. Please record your sugars daily before and after meals to adjust as needed. Goal blood sugar readings 1-2 hrs after meals is less than 180. Stop taking taking meloxicam and Mounjaro. Mounjaro will continue to lower your appetite and may worsen your symptoms. Resume other previous medications. Repeat your labs in 1 weeks to check for magnesium and calcium levels. Follow up with your PCP in 1 week. Follow up with gastroenterology (GI) for endoscopy biopsy results. Education Materials: Electrolytes, Healthy Meals for Diabetes, Discharge Instructions for ..., Foot Care Diabetes Steps Print Language: Slovak Stand Alone Forms: Sandy Award Info., Patient Portal Info Letter, Work/Release Restrictions Quality Discharge Quality Measures VTE prophylaxis
[2025-07-19] MEDS: CALCIUM CARBONATE 600 MG TABLET PO (08:42)
[2025-07-19] MEDS: HEPARIN SOD INJ 5000 UNIT/ML VIAL SC ×2 (08:43→20:16)
[2025-07-19 11:00] LABS: Magnesium 1.2 mg/dL (1.6-2.6); Phosphorous 4.7 mg/dL (2.4-5.1)
[2025-07-19 11:53] LABS: Anion Gap 15 (7-16); BUN/Creatinine Ratio 7 Ratio (12-20); Blood Urea Nitrogen < 5 mg/dL (9-23); Calcium 8.8 mg/dL (8.3-10.6); Carbon Dioxide 18.1 mMol/L (20.0-31.0); Chloride 108 mMol/L (98-107); Creatinine (Component) 0.7 mg/dL (0.6-1.3); Estimated Creatinine Clearance 136.7 mL/min (>60); Glucose 151 mg/dL (74-106); Osmolality,Calculated 281 (275-295); Potassium 4.4 mMol/L (3.4-5.1); Sodium 141 mMol/L (136-145); eGFR > 60 See Note
[2025-07-19] MEDS: Magnesium Sulfate 4 GM Ivpb 4 GM/50 ML BAG IV (13:31)
--- NOTE | 2025-07-19 16:07 | ESPR_ITS ---
Documentation for date of: 07/19/25 Subjective Subjective Interval history: Patient doing well post proximal esophageal stricture dilatation by guidewire savory dilators Romansh 45 and 54 Exam Vital Signs Temp Pulse Resp BP Pulse Ox O2 Del Method O2 Flow Rate 97.6 F 79 20 135/90 H 97 Room Air 3 07/19/25 16:00 07/19/25 16:00 07/19/25 16:00 07/19/25 16:00 07/19/25 16:00 07/19/25 16:00 07/19/25 08:00 Objective Labs 07/19/25 04:40 07/19/25 11:25 Labs: Laboratory Results - last 24 hr 07/19/25 07/19/25 04:40 11:25 WBC 6.3 RBC 4.39 L Hgb 12.9 L Hct 39.9 L MCV 91 MCH 29.4 MCHC 32.3 RDW Std Deviation 43.8 Plt Count 207 Neut % (Auto) 48 Lymph % (Auto) 33 [place] % (Auto) 10 Eos % (Auto) 8 Baso % (Auto) 1 Neut # (Auto) 3.0 Lymph # (Auto) 2.1 [place] # (Auto) 0.6 Eos # (Auto) 0.5 Baso # (Auto) 0.1 Immature Gran # (Auto) 0.04 H Absolute Nucleated RBC 0.00 Immature Gran % 1 H Nucleated RBC % 0 Sodium 143 141 Potassium 4.1 4.4 Chloride 107 108 H Carbon Dioxide 18.3 L 18.1 L Anion Gap 18 H 15 BUN < 5 L < 5 L Creatinine 0.7 0.7 Estim Creat Clear Calc 136.7 136.7 eGFR > 60 > 60 BUN/Creatinine Ratio 7 L 7 L Glucose 102 151 H Calculated Osmolality 282 281 Calcium 8.9 8.8 Corrected Calcium 9.6 Phosphorus 4.7 Magnesium 1.2 L Total Bilirubin 0.8 AST 46 H ALT 32 Alkaline Phosphatase 72 Total Protein 5.0 L Albumin 3.1 L Globulin 1.9 L Albumin/Globulin Ratio 1.6 Impressions Impression: Proximal esophageal stricture Guidewire savory dilatation Romansh 45 and 54 Okay with discharge planning to be followed by the PCP Assessment & Plan Time Spent With Patient Time: Total time spent is greater than 50% in coordination of care (as documented) at patient's floor/unit and/or counseling patient:
--- NOTE | 2025-07-19 16:47 | PD.EVENT ---
Documentation for date of: 07/19/25 Event Note Event Note: Patient was seen and evaluated this AM. He states that he is feeling well and anxious to go home. However, patient was noted to have bicarb of 18 and anion gap of 18. Patient underwent dilatation of benign esophageal stenosis, gastritis and erythematous duodenopathy. Patient was able to tolerate diet this AM. However, he is noted to have a worsening acidosis with an elevated anion gap. Repeat bmp shows improvement of anion gap, but remains acidotic. No LR was given in past 24h. Patient takes jardiance at home, but has not taken it for over 72h. He denies any diarrhea. Patient reports feeling well and denies any chest pain, fever, chills, shortness of braeth. Pending ABG. Patient may have had a starvation ketoacidosis given the fact that he had not eaten for two days pending EGD. Review of chart shows that patient has had hypocalcemia and hypomagnesemia in the past. Patient has been prescribed mag oxide and calcium carbonate in the past. Suspect possible renal tubular acidosis and electrolyte losses. Will consult nephrology and obtain spot urine chloride, magnesium, sodium and potassium. Serum uric acid pending.
[2025-07-19 17:19] LABS: Base Excess -6 (-3-3); HCO3 19 mEq/L (20-26); Inspired Oxygen, FIO2 21 %; O2 Saturation 55 % (91-98); PCO2 36 mmHg (32.0-48.0); pH, Arterial 7.34 (7.35-7.45)
[2025-07-19 17:40] LABS: Allen Test Performed/OK; PO2 32 mmHg (83-108); Puncture Site Right Radial
[2025-07-19] MEDS: Magnesium Sulfate 2 GM Ivpb 2 GM/50 ML BAG IV (18:29)
[2025-07-19 19:07] LABS: Beta Hydroxybutyrate 4.0 mmol/L (<0.6)
[2025-07-19 19:12] LABS: Chloride,Urine Random 123.0 mMol/L (55.0-125.0); Potassium,Urine Random 24 mMol/L (12-62); Sodium,Urine Random 141.0 mMol/L (20.0-110.0)
[2025-07-19 19:20] LABS: Uric Acid 8.1 mg/dL (3.7-9.2)
[2025-07-19] MEDS: INSULIN LISPRO (AdmeLOG) 1 UNIT/0.01 ML UNIT SC (20:15)
[2025-07-19] MEDS: CITRIC ACID/SODIUM CITR 15 ML UDC (BICITRA) 30 ML PO (20:22)
[2025-07-20] VITALS (7 sets, daily range): BP systolic 109–137; BP diastolic 74–90; PULSE 59–90; RESP 11–97; TEMP 36.1; O2SAT 96–98; BMI 35.2
[2025-07-20 06:20] LABS: Basophils # (Auto) 0.1 Thou/mm3 (0.0-0.2); Basophils % (Auto) 1 % (0-2.5); Eosinophils # (Auto) 0.5 Thou/mm3 (0.0-0.5); Eosinophils % (Auto) 8 % (0-10); Hematocrit 39.1 % (41.0-53.0); Hemoglobin 12.8 g/dL (13.5-16.0); Immature Granulocytes Auto 0.03 Thou/mm3 (0.00-0.00); Lymphocytes # (Auto) 2.2 Thou/mm3 (1.0-4.8); Lymphocytes % (Auto) 34 % (10-50); Mean Corpuscular HGB Conc 32.7 g/dl (31.0-37.0); Mean Corpuscular Hemoglobin 29.4 pg (25.0-35.0); Mean Corpuscular Volume 90 fL (80-100); Monocytes # (Auto) 0.7 Thou/mm3 (0.0-0.8); Monocytes % (Auto) 11 % (0-12); Neutrophils # (Auto) 3.0 Thou/mm3 (1.8-7.7); Neutrophils % (Auto) 46 % (37-80); Nucleated Red Blood Cell # 0.00 Thou/mm3 (0.00-0.00); Nucleated Red Blood Cell % 0 /100 WBC (0); Platelet Count 246 Thou/mm3 (140-440); RDW Standard Deviation 42.6 fL (35.1-43.9); Red Blood Count 4.36 Miln/mm3 (4.50-5.90); White Blood Count 6.5 Thou/mm3 (3.8-10.6)
[2025-07-20 06:42] LABS: Anion Gap 13 (7-16); BUN/Creatinine Ratio 8 Ratio (12-20); Blood Urea Nitrogen < 5 mg/dL (9-23); Calcium 8.6 mg/dL (8.3-10.6); Carbon Dioxide 22.1 mMol/L (20.0-31.0); Chloride 106 mMol/L (98-107); Creatinine (Component) 0.6 mg/dL (0.6-1.3); Estimated Creatinine Clearance 159.5 mL/min (>60); Glucose 113 mg/dL (74-106); Magnesium 1.4 mg/dL (1.6-2.6); Osmolality,Calculated 279 (275-295); Phosphorous 4.4 mg/dL (2.4-5.1); Potassium 3.8 mMol/L (3.4-5.1); Sodium 141 mMol/L (136-145); Triglycerides 87 mg/dL (30-150); eGFR > 60 See Note
--- NOTE | 2025-07-20 08:46 | PD.NEPHCONS ---
History of Present Illness Data of Consult Consult date: 07/20/25 Requesting Physician: Sandra Betancourt DO Primary Care Provider: JONE Tadeo Consult Narrative Reason for consult: Metabolic acidosis History of present illness: Ms. Tsering Cuenca is 54 yr male with PMH of HTN, insulin-dependent type 2 diabetes, HLD, GERD presenting to ED due to weakness. Patient stated that he was at [facility] clinic earlier this morning when the nurse noted that he was not looking well. Advised to come into the hospital. Patient stated that he is feeling weak with difficulty in walking at times, decreased appetite after his knee surgery in May. Has only been drinking liquids and soups endorsing weight loss of 13 pounds (likely due to the Mounjaro). Denies any nausea, vomiting, fever, chest pain, shortness of breath. Bowel movements are regular recent bowel movement this morning. Patient denies any falls or loss of consciousness. He is a poor historian when it comes to past medical history unable to recall his medications. In ED, blood pressure 124/88, pulse 96, afebrile. Glucose 217, calcium 7.9, magnesium<0.05, troponin 0.075, Utox negative. UA negative for infection, +4glucose. EKG negative for ST changes, NSR. LE negative for DVT on u/s. Admit for presyncope likely in setting of electrolyte abnormalities. PMH: as above PSH: May 2025 knee replacement FamHx: Htn, DM in mother Social: denies smoking or drinking. Works in the [employer]. Meds: Med rec pending Allergies: NKDA Renal consultation requested for metabolic acidosis, hypocalcemia and hypomagnesemia cc:: cc: Sandra Betancourt DO Review of Systems Review of Systems Narrative Review of Systems: CONSTITUTIONAL: Patient denies any fever, chills. Complaining of fatigue HEENT: Denies any visual disturbances or hearing problems. CARDIOVASCULAR: Patient denies any chest pain, shortness of breath, swelling in the lower extremities. PULMONARY: Patient denies any shortness of breath, cough. GASTROINTESTINAL: Patient denies any abdominal pain, constipation, nausea, vomiting, diarrhea. GENITOURINARY: Patient denies any urinary symptoms of burning or frequency or hematuria, denies any form in the urine. SKIN: Denies any rash. MUSCULOSKELETAL: Denies any muscular skeletal problems of joint pains. NEUROLOGICAL: Denies any neurological problems of strokes, seizures or confusion. Denies any memory problems. PSYCHIATRIC: Denies any depression or anxiety. LYMPHATICS : No lymphadenopathy Past Medical History Past Medical History NEUROLOGIC: Negative Neurological Disorders, Cerebrovascular Accident, Transient Ischemic Attacks (TIA), Dementia, Alzheimer's Disease, Parkinson's Disease, Brain Tumor, Meningitis, Seizures, Epilepsy, Multiple Sclerosis, Cerebral Palsy, Amyotrophic Lateral Sclerosis (ALS/Laverne Gehrig's), Guillain-[place] Syndrome, Spina Bifida, Paralysis, Peripheral Neuropathy, Kang's Palsy, Subdural Hematoma, Migraine, Head Trauma, Spinal Cord Injury or Traumatic Brain Injury CARDIAC: Positive Cardiac Disorders, Hypercholesterolemia, Edema and Hypertension; Negative Myocardial Infarction, Cardiac Arrhythmia, Atrial Fibrillation, Angina, Heart Murmur, Coronary Artery Disease, Atherosclerotic Heart Disease, Peripheral Vascular Disease, Aneurysm, Congestive Heart Failure, Congenital Heart Disease, Valvular Heart Disease, Rheumatic Fever, Cardiomyopathy, Pericarditis, Cellulitis, Deep Vein Thrombosis, Hypotension or Varicose Veins RESPIRATORY: Positive Smoking (15 YEARS) and Smoking Exposure; Negative Chronic Obstructive Pulmonary Disease (COPD), Asthma, Bronchitis, Emphysema, Pneumonia, Pulmonary Fibrosis, Tuberculosis, Pulmonary Embolism, Pulmonary Edema, Sleep Apnea, CPAP Dependent, Respiratory Aspiration, Dyspnea, Orthopnea, Cough, Sputum Production, Wheezing, Chest Deformities, Smoking Cessation Counseling, Tobacco Use, Clubbing, Exposure to Respiratory Irritants or Intubation GASTROINTESTINAL: Positive Gastrointestinal Disorders, Gastroesophageal Reflux Disease and Obesity; Negative Liver Cancer, Hepatitis, Cirrhosis, Pancreatic Cancer, Pancreatitis, Celiac Disease, Gall Bladder Disease, Gastrointestinal Bleed, Esophageal Varices, Sidhu's Esophagus, Colitis, Ulcerative Colitis, Diverticulitis, Diverticulosis, Ulcer, Colorectal Cancer, Irritable Bowel, Crohn's Disease, Obstructive Bowel, Hiatal Hernia or Hemorrhoids GENITOURINARY: Positive Benign Prostatic Hyperplasia; Negative Genitourinary Disorders, Renal Disease, Kidney Stones, Polycystic Kidney Disease, Neurogenic Bladder, Inguinal Hernia, Dialysis or Prostate Cancer REPRODUCTIVE: Negative Breast Cancer, Fibroids, Genital Herpes, Gonorrhea, Syphilis or Testicular Cancer MUSCULOSKELETAL: Positive Arthritis; Negative Musculoskeletal Disorders, Muscular Dystrophy, Myasthenia Gravis, Marfan's Syndrome, Bone Cancer, Rheumatoid Arthritis, Osteoporosis, Degenerative Disk Disease, Gout, Scoliosis, Carpal Tunnel Syndrome, Fibromyalgia, Fractures, Degenerative Joint Disease, Osteomyelitis or Poliovirus ENT: Negative Cataracts, Glaucoma, Blind, Retinal Detachment, Macular Degeneration, Ear Infection, Deafness, Head Trauma or Eye Prosthesis ENDOCRINE: Positive Endocrine Disorders and Diabetes Mellitus Type 2; Negative Diabetes Mellitus Type 1, Hypoglycemia, [place]'s Syndrome, Henrique's Disease, Hyperthyroidism, Hypothyroidism, Thyroid Cancer, Parathyroid Disease, Pituitary Disease, Systemic Lupus Erythematosus, Syndrome of Inappropriate Antidiuretic Hormone (SIADH), Adrenal Disease or Graves' Disease HEMATOLOGIC: Negative Blood Disorders, Anemia, Leukemia, Hemophilia, Thalassemia, Sickle Cell Disease or Clotting Problems PSYCHO/SOCIAL: Positive Depression and Anxiety; Negative Schizophrenia, Recreational Drug Use, Bipolar Disorder, Behavior Problems, Self-Mutilation, Attention Deficit Disorder, Attention Deficit Hyperactivity Disorder, Depression, Post Traumatic Stress Disorder or Eating Disorder OTHER HISTORY: Positive Hospitalization and Chicken Pox; Negative Autoimmune Disease, Down Syndrome, Autism, Developmental Delay, Cosmetic Surgery, Shingles, Falls, Blood Transfusions, Blood Transfusion Reaction, Anesthesia Reactions, Organ Transplant, Chemotherapy, Radiation Therapy, Hyperbaric Therapy, MRSA, VRSA, Vancomycin-Resistant Enterococci, Human Immunodeficiency Virus (HIV), Measles, Mumps, Rubella ([place] Measles), Pertussis, Hx Klebsiella Pneumoniae Carbapenemase (KPC)-Producing Bacteria, Clostridium Difficile, Hepatitis A, Hepatitis B, Hepatitis C, Communicable Disease, Cancer, Breast Cancer, Colorectal Cancer, Lung Cancer, Prostate Cancer or Testicular Cancer Family History FAMILY HISTORY: Positive Family Cancer and Family Surgery; Negative Family Psychiatric Problems, Family Respiratory Disorders, Family Cardiac Disorders, Family Gastrointestinal Problems or Family Anesthesia Reaction Surgical History SURGICAL: Positive Knee Sx (right knee); Negative Coronary Artery Bypass Graft, Valve Replacement, Pacemaker, Carotid Endarterectomy, Thyroidectomy or Organ Transplant Social History SMOKING STATUS: Never smoker SECOND HAND EXPOSURE: No Meds Home Medications and Allergies Home Medications ?Medication ?Instructions ?Recorded ?Confirmed ?Type atorvastatin 40 mg tablet 40 mg PO HS 09/25/22 07/16/25 History amlodipine 10 mg tablet 10 mg PO HS 05/29/25 07/16/25 History ergocalciferol (vitamin D2) 1,250 1,250 mcg PO QWEEK 05/29/25 07/16/25 History mcg (50,000 unit) capsule metformin 1,000 mg tablet 1,000 mg PO BID 05/29/25 07/16/25 History omeprazole 40 mg capsule,delayed 40 mg PO DAILY 05/29/25 07/16/25 History release insulin degludec 100 unit/mL (3 15 unit subcut HS 07/16/25 07/16/25 History mL) subcutaneous pen (Tresiba FlexTouch U-100 insulin) Held on 07/17/25. Instructions: Resume on 07/31/25. Resume after PCP follow up. montelukast 10 mg tablet 10 mg PO QDAY 07/16/25 07/16/25 History tamsulosin 0.4 mg capsule 0.4 mg PO Q24H 07/16/25 07/16/25 History Allergies Allergy/AdvReac Type Severity Reaction Status Date / Time No Known Allergies Allergy Verified 07/16/25 12:28 Exam Vital Signs Temp Pulse Resp BP Pulse Ox O2 Del Method O2 Flow Rate 36.1 C 78 18 127/85 H 96 Room Air 3 07/20/25 15:53 07/20/25 16:00 07/20/25 15:53 07/20/25 15:53 07/20/25 15:53 07/20/25 15:53 07/19/25 08:00 Narrative Exam GENERAL APPEARANCE: Patient seems to be comfortable, adequately hydrated and nourished. HEENT: EOMI, PERRLA NECK: Neck supple, no JVD or bruit CARDIOVASCULAR: Heart regular, no murmurs LUNGS/CHEST: Chest clear to auscultation. No rales, rhonchi, wheezing ABDOMEN: Soft, nontender, nondistended. No masses. Normal bowel sounds. EXTREMITIES: No edema, clubbing or cyanosis. SKIN: Skin exam normal without any rashes MUSCULOSKELETAL: Musculoskeletal exam normal PSYCHIATRIC: Normal mood, affect LYMPHATICS: No lymphadenopathy noted NEUROLOGICAL : No neurological deficits Results Labs 07/20/25 05:47 07/20/25 05:47 ABG Interpretation ABG results: 07/19/25 17:13 ABG pH 7.34 L ABG pCO2 36 ABG pO2 32 L* ABG HCO3 19 L ABG O2 Saturation 55 L ABG Base Excess -6 L Assessment & Plan Assessment and plan (1) Hypocalcemia: Status: Inactive Assessment and plan: Suspect patient has renal losses of calcium. Agree with calcium carbonate and vitamin D. (2) Hypomagnesemia: Status: Acute Assessment and plan: Patient with severe hypomagnesemia. No GI losses. Suspected renal losses. Will give amiloride. (3) Diabetes: Status: Acute Assessment and plan: Accu-Cheks, sliding scale, diabetic diet. Patient on insulin, metformin at home. (4) Metabolic acidosis: Status: Acute Assessment and plan: Metabolic acidosis most likely related to RTA. [place]. Continue with bicarbonate. Additional Assessment & Plan Additional Plan: Plan of care discussed with primary team. Thank you Laya for allowing me to participate in the care of Mr. Cuenca
[2025-07-20] MEDS: HEPARIN SOD INJ 5000 UNIT/ML VIAL SC (09:10)
[2025-07-20] MEDS: Magnesium Sulfate 4 GM Ivpb 4 GM/50 ML BAG IV (09:10)
[2025-07-20] MEDS: CALCIUM CARBONATE 600 MG TABLET PO (09:10)
[2025-07-20] MEDS: CITRIC ACID/SODIUM CITR 15 ML UDC (BICITRA) 30 ML PO (09:47)
[2025-07-20] MEDS: INSULIN LISPRO (AdmeLOG) 1 UNIT/0.01 ML UNIT SC (11:46)
--- NOTE | 2025-07-20 13:28 | ESDS_ITS ---
<Statement entered by Sandra Betancourt DO - 07/21/25 07:38> I, Sandra Betancourt DO, attest that I was physically present for the macias portions of the service and evaluated the patient with the resident and I reviewed and discussed the case with the resident and agree with the resident's findings and plans of care as documented above Planned Discharge Date 07/20/25 DS: Providers Provider Date of admission: 07/16/25 16:54 Primary care physician: JONE Tadeo Admitting Provider: Kimberlee Lynch MD Attending Provider on Admission: Sandra Betancourt DO Consults: 07/17/25 16:09 Consult to Gastroenterology Routine Comment: dysphagia Consulting Provider: Zayda Agustin 07/18/25 09:43 Referral Speech Therapy Routine Comment: 07/19/25 17:25 Consult to Nephrology Routine Comment: Consulting Provider: Kinza Tovar Attending Provider on DC: Sandra Betancourt DO Discharging Provider: Sandra Betancourt DO DS: Diagnosis Problem List Completed Was Problem List Reviewed/Reconciled?: Yes Hospital Course Hospital Course Hospital course: Reason for hospitalization: Electrolyte abnormalities, dysphagia Tsering Cuenca is 54 yr male with PMH of HTN, insulin-dependent type 2 diabetes, HLD, GERD presenting to ED 07/16/25 due to weakness. Sent in by PCP. Patient stated that he was feeling weak with difficulty in walking at times, decreased appetite after his knee surgery in May. Has only been drinking liquids and soups endorsing weight loss of 13 pounds (likely due to the Mounjaro). In ED, Vitals were stable, glucse 217, calcium 7.9, magnesium<0.05, troponin 0.075, Utox negative. UA negative for infection, +4glucose. EKG negative for ST changes, NSR. LE negative for DVT on u/s. CT head Negative for acute hemorrhage, mass effect or midline shift given pt reported blurred vision. GI was consulted, to evaluate his dysphagia. EGD revealed proximal stricture which was dilated, and biopsies were taken of the upper and lower esophagus, esophagitis, and errythematous duodenopathy was noted. post dilation pt was able to tolerate regular diet without difficulty swallowing. Nephrology was consulted for electrolyte abnormalities .Magnesium was repleted daily and Patient was started on amiloride and magnesium supplement he should get OTC. 25-hydroxy vitamin D 114, TSH normal 0.96, PTH normal 70. During hospitalization he developed anion gap metabolic acidosis most likely due to starvation state. BHB elevated 4.0. However did resolve as diet was advanced. Patient is now in stable condition and ready for discharge. Recommendations were given as below. Discharge Recommendations: Hold your lantus insulin until your see your PCP. Please record your sugars daily before and after meals to adjust as needed. Goal blood sugar readings 1-2 hrs after meals is less than 180. Stop taking meloxicam and Mounjaro. Mounjaro will continue to lower your appetite and may worsen your symptoms. Start taking amiloride 5mg daily and purchase magnesium glycinate multivitamin to prevent low levels. Resume other previous medications. Repeat your labs in 1 weeks to check for magnesium and calcium levels. Follow up with bow rehairer in 1 week. Follow up with your PCP in 1 week. Follow up with gastroenterology (GI) for endoscopy biopsy results. Hospital Diagnoses: #dysphagia-resolved #esophageal stricture s/p dilation #dizziness #Blurry vision - stable #Presyncope #Electrolyte abnormalities 2/2 poor po intake #Elevated troponins - resolved # Insulin-dependent type 2 diabetes-A1c 5.8 #HTN #Hyperlipidemia #hypomagnesemia #hypcalcemia The patient's management plan was discussed with my attending physician Dr. Betancourt. Taylor Vieyra MD, PGY-2 Time Spent with Patient Time attestation: Total time spent providing and/or coordinating discharge services: Time spent: Greater than 30 minutes Exam Vital Signs Temp Pulse Resp BP Pulse Ox O2 Del Method O2 Flow Rate 97.0 F 84 18 124/80 96 Room Air 3 07/20/25 12:07/20/25 12:07/20/25 12:07/20/25 12:07/20/25 12:07/20/25 12:07/19/25 08:00 Narrative Exam General: Middle-aged male, obese, sitting up in bed, no acute distress. HEENT: Oropharynx clear, moist mucous membranes, no oral lesions. s/p dilation of esophagus Cardiac: Regular rate and rhythm, no murmurs, rubs, or gallops. Respiratory: Lungs clear bilaterally, no wheezes, rales, or rhonchi. Normal work of breathing. Abdomen: Soft, nondistended, normoactive bowel sounds, non-tender to palpation. No hepatosplenomegaly. Extremities: No cyanosis, clubbing, or edema. Skin warm and well-perfused. Neuro: Alert and oriented ?3, no focal motor or sensory deficits noted. Discharge Plan Plan Patient Disposition: HOME (Self Care) Patient condition on transfer: Stable Prescriptions/Referrals Prescriptions/Med Rec: New amiloride 5 mg tablet 5 mg PO QDAY Qty: 30 0RF calcium carbonate 600 mg calcium (1,500 mg) Tablet 600 mg PO QDAY 30 Days Qty: 30 0RF Januvia 25 mg tablet 25 mg PO QDAY Qty: 30 0RF Continued cyclobenzaprine 5 mg tablet 5 mg PO QHS PRN (Reason: muscle spasm) Qty: 30 0RF gabapentin 300 mg capsule 300 mg PO .qhs Qty: 30 0RF atorvastatin 40 mg tablet 40 mg PO HS Patient Comments: TAKE 1 TABLET BY MOUTH EVERY DAY FOR 90 DAYS omeprazole 40 mg capsule,delayed release(DR/EC) 40 mg PO DAILY Patient Comments: TOME 1 CAPSULA POR LA BOCA ANTES DE COMER CAMPOS VES AL MICHELA metformin 1,000 mg tablet 1,000 mg PO BID Patient Comments: TOME 1 TABLETA POR LA BOCA DOS VECES AL MICHELA CON COMIDA PARA DIABETES amlodipine 10 mg tablet 10 mg PO HS Patient Comments: TOME 1 TABLETA POR LA BOCA EN LA NOCHE ergocalciferol (vitamin D2) 1,250 mcg (50,000 unit) capsule 1,250 mcg PO QWEEK Patient Comments: TOME 1 C PSULA POR V A ORAL EVERY WEEK tamsulosin 0.4 mg capsule 0.4 mg PO Q24H montelukast 10 mg tablet 10 mg PO QDAY Patient Comments: TOME CAMPOS TABLETA POR V A ORAL AL ACOSTARSE Held insulin degludec [Tresiba FlexTouch U-100] 100 unit/mL (3 mL) insulin pen 15 unit SUBCUT HS Hold Instructions: Resume on 07/31/25. Resume after PCP follow up. Patient Comments: INJECT 15 UNITS SUBCUTANEOUSLY NIGHTLY AT BEDTIME Discontinued insulin glargine [Lantus Solostar U-100 Insulin] 100 unit/mL (3 mL) insulin pen 25 unit SUBCUT HS Patient Comments: INJECT 28 UNITS SUBCUTANEOUS DAILY Jardiance 25 mg tablet 25 mg PO QAM meloxicam 15 mg tablet 15 mg PO HS Patient Comments: TOME CAMPOS TABLETA POR V A ORAL CADA NOCHE Referrals: Zayda Agustin MD [Physician, Gastroenterology] Vika Beaulieu FNP [Primary Care Provider] Kinza Tovar MD [Physician, Nephrology] Patient/Caregiver Discharge Instructions Other Discharge Activity Instructions:: Hold your lantus insulin until your see your PCP. Please record your sugars daily before and after meals to adjust as needed. Goal blood sugar readings 1-2 hrs after meals is less than 180. Stop taking meloxicam and Mounjaro. Mounjaro will continue to lower your appetite and may worsen your symptoms. Start taking amiloride 5mg daily and purchase magnesium glycinate multivitamin to prevent low levels. Resume other previous medications. Repeat your labs in 1 weeks to check for magnesium and calcium levels. Follow up with bow rehairer in 1 week. Follow up with your PCP in 1 week. Follow up with gastroenterology (GI) for endoscopy biopsy results. Suspenda arias insulina Lantus hasta arias jessica con arias m?dico de cabecera. Registre floyd niveles de az?car diariamente antes y despu?s de las comidas para ajustarlos seg?n sea necesario. El objetivo es tener campos glucemia inferior a 180 1-2 horas despu?s de las comidas. Deje de johan meloxicam y Mounjaro. Mounjaro seguir? disminuyendo arias apetito y podr?a empeorar floyd s?ntomas. Comience a johan 5 mg de amilorida al d?a y compre un multivitam?esperanza de glicinato de magnesio para prevenir niveles bajos. Reanude floyd medicamentos anteriores. Repita floyd an?lisis de laboratorio en campos semana para verificar floyd niveles de magnesio y calcio. Consulte con un nefr?logo en campos semana. Consulte con arias m?dico de cabecera en campos semana. Consulte con gastroenterolog?a para obtener los resultados de la biopsia endosc?pica. Education Materials: Electrolytes, Healthy Meals for Diabetes, Discharge Instructions for ..., Foot Care Diabetes Steps Print Language: Tajik Stand Alone Forms: Sandy Award Info., Patient Portal Info Letter, Work/Release Restrictions Discharge Order Discharge Orders: Discharge (Routine); Ordered 07/20/25 Ordered By: Taylor Vieyra Quality Discharge Quality Measures VTE prophylaxis
--- NOTE | 2025-07-20 16:10 | PC.SS ---
Rounding note: to be d/c today.
== END 2025-07-20 16:27 | disposition home or self-care (01) ==
LOC: SERX 16:07 → SERHOLD 17:19 → S2NX 18:37 → S3NX 07-20 03:48
PROVIDERS: Nurse Practitioner Family; Specialist; Admitting Provider Internal Medicine; Emergency Provider Emergency Medicine; PCP Registered Nurse Community Health; Visit Provider Internal Medicine
PROC: (CPT 43239; principal; 2025-07-18 20:00)
DX: E83.42 Hypomagnesemia (principal); K22.2 Esophageal obstruction; K20.90 Esophagitis, unspecified without bleeding; K29.70 Gastritis, unspecified, without bleeding; K31.89 Other diseases of stomach and duodenum; I10 Essential (primary) hypertension; E78.5 Hyperlipidemia, unspecified; E11.9 Type 2 diabetes mellitus without complications; E87.20 Acidosis, unspecified; K21.9 Gastro-esophageal reflux disease without esophagitis
CPT/HCPCS: 43248; 43239; 36415; 36600; 70450; 71046; 80048; 80053; 80061; 80307; 81001; 82010; 82306; 82436; 82570; 82803; 83036; 83540; 83550; 83735; 83880; 83970; 84100; 84133; 84300; 84443; 84478; 84484; 84550; 85025; 85610; 85730; 87502; 87811; 92526; 92610; 93005; 93970; 96365; 96366; 96372; 96375; 96376; 99285; A4217; A4649; C1769; G0378; J0613; J1200; J1644; J1815; J2250; J2470; J3010; J3475; J3480; J7120; A9270

== ENCOUNTER 2025-07-31 18:24 | Emergency (ER) | payer MEDICAID, SELFPAY ==
[2025-07-31 18:26] VITALS: BMI 28.1
--- NOTE | 2025-07-31 18:30 | EKG_ITS ---
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
[2025-07-31 18:38] VITALS: BP 120/85; PULSE 98; RESP 17; TEMP 36.6; O2SAT 98
--- NOTE | 2025-07-31 18:49 | PD.EDRECHK ---
ED Recheck Abnl Lab Rx-RME/HPI General Chief Complaint: General Adult/Misc Complain Stated Complaint: LOW H&H AND ELECTROLYTES ABNORMAL SEEN LAST WK Arrival date/time: 07/31/25 18:24 RME / HPI RME / HPI narrative: See [facility] for Dr. Vail's HPI documentation. Related Data Home Medications ?Medication ?Instructions ?Recorded ?Confirmed atorvastatin 40 mg tablet 40 mg PO HS 09/25/22 07/16/25 amlodipine 10 mg tablet 10 mg PO HS 05/29/25 07/16/25 ergocalciferol (vitamin D2) 1,250 1,250 mcg PO QWEEK 05/29/25 07/16/25 mcg (50,000 unit) capsule metformin 1,000 mg tablet 1,000 mg PO BID 05/29/25 07/16/25 omeprazole 40 mg capsule,delayed 40 mg PO DAILY 05/29/25 07/16/25 release insulin degludec 100 unit/mL (3 15 unit subcut HS 07/16/25 07/16/25 mL) subcutaneous pen (Tresiba FlexTouch U-100 insulin) Held on 07/17/25. Instructions: Resume on 07/31/25. Resume after PCP follow up. montelukast 10 mg tablet 10 mg PO QDAY 07/16/25 07/16/25 tamsulosin 0.4 mg capsule 0.4 mg PO Q24H 07/16/25 07/16/25 Previous Rx's ?Medication ?Instructions ?Recorded cyclobenzaprine 5 mg tablet 5 mg PO QHS PRN muscle spasm #30 07/04/25 tabs gabapentin 300 mg capsule 300 mg PO .qhs #30 caps 07/04/25 amiloride 5 mg tablet 5 mg PO QDAY #30 tabs 07/20/25 calcium carbonate 600 mg PO QDAY 30 days #30 tabs 07/20/25 sitagliptin phosphate 25 mg tablet 25 mg PO QDAY #30 tabs 07/20/25 (Januvia) Allergies Allergy/AdvReac Type Severity Reaction Status Date / Time No Known Allergies Allergy Verified 07/31/25 18:28 Review of Systems Review of Systems Systems Reviewed: All systems reviewed, normal except as documented ED Exam Narrative Physical exam: See [facility] for Dr. Vail's physical exam documentation. Course Quality Measures none Orders Category Date Time Status EKG (ED ONLY) *Do not use* NOW Care 07/31/25 18:30 Completed Saline [Insert IV] NOW Care 07/31/25 20:[address] head/brain wo con Stat Exams 07/31/25 19:19 Completed EKG (ED Only) Stat Exams 07/31/25 18:30 Draft XR chest 1V portable Stat Exams 07/31/25 19:19 Completed Alcohol, Blood Medical Stat Lab 07/31/25 19:28 Completed Bilirubin,Direct Stat Lab 07/31/25 19:28 Completed CBC Stat Lab 07/31/25 19:28 Completed CMP [Comprehensive Metabolic Panel] Stat Lab 07/31/25 19:28 Completed Mag [Magnesium] Stat Lab 08/01/25 01:24 Completed Magnesium Stat Lab 07/31/25 19:28 Completed TSH [Thyroid Stimulating Hormone] Stat Lab 07/31/25 19:28 Completed Troponin I Stat Lab 07/31/25 19:28 Completed Magnesium Sulfate 4 GM Ivpb [Magnesium Sulfate Ivpb] Med 07/31/25 20:46 Discontinued 4 gm in 50 ml IV X1 Meclizine HCl [Antivert] Med 07/31/25 19:17 Discontinued 25 mg PO X1 ONE Ondansetron Odt [Zofran Odt] Med 07/31/25 19:17 Discontinued 4 mg PO X1 ONE Scopolamine [Transderm-Scop Patch] Med 07/31/25 19:17 Discontinued 1 mg TOP X1 ONE Sodium Chloride 0.9% 1000 ml [Ns] 1,000 ml Med 07/31/25 20:46 Discontinued IV 999 mls/hr Vital Signs Vital signs: Vital Signs Temperature 97.8 F 07/31/25 18:38 Pulse Rate 98 07/31/25 18:38 Respiratory Rate 17 07/31/25 18:38 Blood Pressure 120/85 H 07/31/25 18:38 Pulse Oximetry (%) 98 07/31/25 18:38 Oxygen Delivery Method Room Air 07/31/25 18:38 Recheck / Abnormal Lab / Rx MDM Narrative MDM Narrative:: This section includes all my notes and documentations, including HPI, PE, and ED course. Thierry Vail MD HPI: 55-year-old male here with several days of generalized malaise and fatigue with dizziness. Describes dizziness as moving sensation. No nausea or vomiting. No fever. No speech or visual impairment. No right-sided weakness or left-sided weakness. No chest pain or shortness of breath. No other complaints. ROS: All negative except as documented in HPI. Physical Exam: General:? Alert and oriented.? No acute distress.?? Eyes:? Conjunctivae and lids clear.? EOMI.? PERRL. ENT:? No nasal congestion.? Pharynx normal.? Tympanic membrane normal bilaterally.??? Neck:? Supple.? No carotid bruit.? No JVD.?? Heart:? RRR.? Lungs:? No respiratory distress.? Good air movement.? No rhonchi, wheezing, rales.?? Abdomen:? Soft and nontender.? Normal bowel sounds.? No distension.? No rebound or guarding.?? Back:? No CVA tenderness.?? Legs:? No clubbing, cyanosis, edema.? Skin:? Warm and dry.?? Neuro:? Alert and oriented X 3.? Cranial Nerves II-XII grossly intact.? No peripheral motor deficits. I reviewed all diagnostic test results. My interpretation of the EKG is sinus rhythm with nonspecific ST-T changes. My interpretation of the chest x-ray is NAD. My review of the CT head report is NAD. Blood tests remarkable for Mg 0.8. At this point, diagnoses include: Hypomagnesemia Treatment here included: IVF/Meclizine/Zofran/Scopolamine prior to diagnostic tests. Magnesium Sulfate 4 gram IV with hypomagnesemia. Significant improvement noted. Recommended outpatient management. Based on my best medical judgment, made decision no further evaluation or treatment indicated at this time. Patient understands and agrees to the discharge instructions customized and printed, see below. Discharge Instructions from Dr. Vail printed for you: 1. Today, you were treated for severely low magnesium level. Most of your organs in your body need magnesium to function. 2. Continue your magnesium pills. But your body has trouble absorbing magnesium from the pills. 3. So you need to increase food rich in magnesium. Such as green and leafy vegetables and peanuts and almonds and cashews. 4. See your private doctor on 08/02/2025 for recheck. Ask to review all test results and official radiology reports, to make sure you receive all necessary follow-ups and monitoring, including repeat magnesium level. 5. Seek immediate medical care with worsening or with any concerns. Thierry Vail MD Patient data [place] [facility] [place] (Per chart review, patient was admitted here on 07/16/25 for Hypomagnesemia and Hypocalcemia.) Clinical information provided by:: patient Social determinants that could affect healthcare access:: none Patient has the following chronic illnesses:: HTN, IDDM, HLD, GERD How is presenting disease/condition affected by chronic disease/condition?: exacerbated by Evaluation data The following diagnostics were reviewed and interpreted by me:: lab results, radiology exam(s) and EKG tracing(s) (My interpretation of the EKG is: Sinus rhythm (95 bpm) with nonspecific ST-T changes. Thierry Vail MD) Lab and/or radiology exams considered but not ordered:: none Interpretation Summary: I reviewed all diagnostic test results. My interpretation of the EKG is sinus rhythm with nonspecific ST-T changes. My interpretation of the chest x-ray is NAD. My review of the CT head report is NAD. Blood tests remarkable for Mg 0.8. Medications / Prescriptions Medications or Prescriptions considered but not ordered:: none Medication administrations:: Medication Administration History Discontinued Medications Sodium Chloride (Ns) 1,000 mls @ 999 mls/hr IV .Q1H1M ONE Stop: 07/31/25 21:46 Last Infusion: 07/31/25 22:28 Dose: Infused Documented By: Admin: 07/31/25 21:10 Dose: 999 mls/hr Documented By: BLAYNE Magnesium Sulfate (Magnesium Sulfate Ivpb) 4 gm in 50 mls @ 12.5 mls/hr IV X1 ONE Stop: 08/01/25 00:45 Last Infusion: 08/01/25 01:20 Dose: Infused Documented By: Admin: 07/31/25 21:10 Dose: 12.5 mls/hr Documented By: CB Meclizine HCl (Meclizine Hcl 25 Mg Tablet) 25 mg PO X1 ONE Stop: 07/31/25 19:18 Last Admin: 07/31/25 19:30 Dose: 25 mg Documented By: OA Ondansetron HCl (Ondansetron Odt 4 Mg Tabrap) 4 mg PO X1 ONE; Protocol Stop: 07/31/25 19:18 Last Admin: 07/31/25 19:30 Dose: 4 mg Documented By: OA Scopolamine (Scopolamine 1 Mg Tdsy) 1 mg TOP X1 ONE Stop: 07/31/25 19:18 Last Admin: 07/31/25 19:31 Dose: 1 mg Documented By: BROWN Treatment here included: IVF/Meclizine/Zofran/Scopolamine prior to diagnostic tests. Magnesium Sulfate 4 gram IV with hypomagnesemia. Consultations Consultation(s) initiated? (list below): No Diagnosis Recheck Differential Diagnosis: other (CVA, brain tumor, [place], sepsis, dehydration, electrolyte abnormalities) Most likely diagnosis given after review of the tests above:: Hypomagnesemia Admission Indicated Admission indicated?: not indicated Explain why admission is indicated or not indicated:: With significant improvement and no condition needing emergent intervention, there was no indication for admission. Admission Request Was there a request for admission?: No Disposition Plan Disposition Plan: Discharge Discharge Attestation Discharge Attestation: The patient and all family members were given an opportunity to ask questions and understood the discharge instructions. Discharge instructions specifically effects, indications for sooner follow up or return to the emergency department, and the expected course of current diagnosis. Patient condition: Stable Discharge Plan Plan Patient Disposition: HOME (Self Care) Prescriptions/Referrals Prescriptions/Med Rec: No Action cyclobenzaprine 5 mg tablet 5 mg PO QHS PRN (Reason: muscle spasm) Qty: 30 0RF gabapentin 300 mg capsule 300 mg PO .qhs Qty: 30 0RF atorvastatin 40 mg tablet 40 mg PO HS Patient Comments: TAKE 1 TABLET BY MOUTH EVERY DAY FOR 90 DAYS omeprazole 40 mg capsule,delayed release(DR/EC) 40 mg PO DAILY Patient Comments: TOME 1 CAPSULA POR LA BOCA ANTES DE COMER CAMPOS VES AL MICHELA metformin 1,000 mg tablet 1,000 mg PO BID Patient Comments: TOME 1 TABLETA POR LA BOCA DOS VECES AL MICHELA CON COMIDA PARA DIABETES amlodipine 10 mg tablet 10 mg PO HS Patient Comments: TOME 1 TABLETA POR LA BOCA EN LA NOCHE ergocalciferol (vitamin D2) 1,250 mcg (50,000 unit) capsule 1,250 mcg PO QWEEK Patient Comments: TOME 1 C PSULA POR V A ORAL EVERY WEEK tamsulosin 0.4 mg capsule 0.4 mg PO Q24H montelukast 10 mg tablet 10 mg PO QDAY Patient Comments: TOME CAMPOS TABLETA POR V A ORAL AL ACOSTARSE insulin degludec [Tresiba FlexTouch U-100] 100 unit/mL (3 mL) insulin pen 15 unit SUBCUT HS Patient Comments: INJECT 15 UNITS SUBCUTANEOUSLY NIGHTLY AT BEDTIME amiloride 5 mg tablet 5 mg PO QDAY Qty: 30 0RF calcium carbonate 600 mg calcium (1,500 mg) Tablet 600 mg PO QDAY 30 Days Qty: 30 0RF Januvia 25 mg tablet 25 mg PO QDAY Qty: 30 0RF Referrals: Vika Beaulieu FNP [Primary Care Provider] - In 1 week Problem List Clinical Impression: Hypomagnesemia Patient/Caregiver Discharge Instructions Discharge Activity: activity as tolerated Education Materials: Magnesium (Blood) Additional Instructions: Discharge Instructions from Dr. Vail printed for you: 1. Today, you were treated for severely low magnesium level. Most of your organs in your body need magnesium to function. 2. Continue your magnesium pills. But your body has trouble absorbing magnesium from the pills. 3. So you need to increase food rich in magnesium. Such as green and leafy vegetables and peanuts and almonds and cashews. 4. See your private doctor on 08/02/2025 for recheck. Ask to review all test results and official radiology reports, to make sure you receive all necessary follow-ups and monitoring, including repeat magnesium level. 5. Seek immediate medical care with worsening or with any concerns. Instrucciones de ruma del Dr. Vail impresas para usted: 1. Hoy recibi? tratamiento por un nivel de magnesio muy bajo. La mayor?a de floyd ?rganos necesitan magnesio para funcionar. 2. Contin?e tomando floyd pastillas de magnesio. Sin embargo, arias cuerpo tiene dificultades para absorber el magnesio de las pastillas. 3. Por lo tanto, necesita aumentar el consumo de alimentos ricos en magnesio, joselin verduras de hoja eddi, cacahuetes, almendras y anacardos. 4. Consulte con arias m?dico el 08/02/2025 para cmapos nueva revisi?n. Solicite la revisi?n de todos los resultados de las pruebas y los informes radiol?gicos oficiales para asegurarse de recibir todos los controles y monitoreos necesarios, incluyendo la repetici?n del nivel de magnesio. 5. Busque atenci?n m?dica inmediata si arias estado empeora o tiene alguna inquietud. Print Language: [place] Stand Alone Forms: Sandy Award Info., Patient Portal Info Letter
--- NOTE | 2025-07-31 19:19 | XR_ITS ---
EXAMINATION: PA chest single view TECHNIQUE: Upright PA chest single view Date and time: July 31, 2025, 1955 hours, comparison 07/16/2025 INDICATIONS: Shortness of breath today. FINDINGS: Normal heart size. The lungs are clear. Significant osteopenia IMPRESSION: No pneumonia or pulmonary edema
--- NOTE | 2025-07-31 19:19 | XR_ITS ---
Examination: CT brain head without contrast. 2-D sagittal coronal reconstructions Date and time of exam: July 31, 2025, 0815 hours, comparison 07/17/2025 INDICATIONS: Dizziness headache beginning 1 week ago,. CTDI: vol (mGy): 56.7 DLP: (mGycm): 1118 Technique: Multiple CT axial sections of the brain have been obtained, 5 mm slice thickness. Contrast has not been administered. 2-D sagittal, coronal reconstructions have been obtained Low dose protocols were performed. One or more of the following dose reduction techniques were used; automated exposure control, adjustment of the mA and/or KV according to patient size, use of iterative reconstruction technique. Findings: No significant ventricular enlargement. Intra-axial or extra-axial hemorrhage density is not seen. No mass effect or midline shift Basal cisterns are not remarkable. Fourth ventricle is midline. Cranial vault intact. Impression: Negative for acute hemorrhage, mass effect or midline shift If symptoms persist, consider brain MRI follow-up, stroke protocol
[2025-07-31] MEDS: MECLIZINE HCL 25 MG TABLET PO (19:30)
[2025-07-31] MEDS: ONDANSETRON ODT 4 MG TABRAP PO (19:30)
[2025-07-31] MEDS: SCOPOLAMINE 1 MG TDSY TOP (19:31)
[2025-07-31 20:05] LABS: Basophils # (Auto) 0.0 Thou/mm3 (0.0-0.2); Basophils % (Auto) 1 % (0-2.5); Eosinophils # (Auto) 0.0 Thou/mm3 (0.0-0.5); Eosinophils % (Auto) 0 % (0-10); Hematocrit 37.9 % (41.0-53.0); Hemoglobin 12.5 g/dL (13.5-16.0); Immature Granulocytes Auto 0.04 Thou/mm3 (0.00-0.00); Lymphocytes # (Auto) 1.4 Thou/mm3 (1.0-4.8); Lymphocytes % (Auto) 19 % (10-50); Mean Corpuscular HGB Conc 33.0 g/dl (31.0-37.0); Mean Corpuscular Hemoglobin 29.4 pg (25.0-35.0); Mean Corpuscular Volume 89 fL (80-100); Monocytes # (Auto) 0.3 Thou/mm3 (0.0-0.8); Monocytes % (Auto) 4 % (0-12); Neutrophils # (Auto) 5.6 Thou/mm3 (1.8-7.7); Neutrophils % (Auto) 76 % (37-80); Nucleated Red Blood Cell # 0.00 Thou/mm3 (0.00-0.00); Nucleated Red Blood Cell % 0 /100 WBC (0); Platelet Count 313 Thou/mm3 (140-440); RDW Standard Deviation 46.2 fL (35.1-43.9); Red Blood Count 4.25 Miln/mm3 (4.50-5.90); White Blood Count 7.4 Thou/mm3 (3.8-10.6)
[2025-07-31 20:39] LABS: Alanine Aminotransferase 35 U/L (10-49); Albumin, Serum 4.0 gm/dL (3.5-5.0); Albumin/Globulin Ratio 1.8 (1.2-2.2); Alcohol, Blood Medical < 3.0 mg/dL (0-10.0); Alkaline Phosphatase 70 U/L (46-116); Anion Gap 14 (7-16); Aspartate Amino Transferase 28 U/L (0-34); BUN/Creatinine Ratio 10 Ratio (12-20); Bilirubin,Direct 0.4 mg/dL (0.0-0.3); Bilirubin,Total 0.7 mg/dL (0.3-1.2); Blood Urea Nitrogen 9 mg/dL (9-23); Calcium 8.4 mg/dL (8.3-10.6); Calcium (Corrected) 8.4 mg/dL (8.5-10.1); Carbon Dioxide 23.5 mMol/L (20.0-31.0); Chloride 105 mMol/L (98-107); Creatinine (Component) 0.9 mg/dL (0.6-1.3); Estimated Creatinine Clearance 99.0 mL/min (>60); Globulin 2.2 gm/dL (2.3-3.5); Glucose 177 mg/dL (74-106); Osmolality,Calculated 285 (275-295); Potassium 4.4 mMol/L (3.4-5.1); Sodium 142 mMol/L (136-145); Thyroid Stimulating Hormone 0.55 uIU/mL (0.55-4.78); Total Protein 6.2 gm/dL (5.7-8.2); Troponin I < 0.002 ng/mL (0.0-0.045); eGFR > 60 See Note
[2025-07-31 20:41] LABS: Magnesium 0.8 mg/dL (1.6-2.6)
[2025-07-31 20:54] VITALS: BP 121/78; PULSE 82; RESP 20; TEMP 36.8; O2SAT 95
[2025-07-31] MEDS: Magnesium Sulfate 4 GM Ivpb 4 GM/50 ML BAG IV (21:10)
[2025-07-31] MEDS: SODIUM CHLORIDE 0.9% 1000 ML 1,000 ML 999 ML IV (21:10)
[2025-07-31 22:28] VITALS: BP 133/78; PULSE 81; RESP 16; TEMP 36.5; O2SAT 95
[2025-08-01 01:27] VITALS: BP 122/72; PULSE 81; RESP 20; TEMP 36.7; O2SAT 99
[2025-08-01 01:57] LABS: Magnesium 1.9 mg/dL (1.6-2.6)
== END 2025-08-01 02:30 | disposition home or self-care (01) ==
PROVIDERS: Emergency Provider Emergency Medicine; PCP Registered Nurse Community Health
DX: E83.42 Hypomagnesemia (principal); R42 Dizziness and giddiness; R51.9 Headache, unspecified; R06.02 Shortness of breath; R94.31 Abnormal electrocardiogram [ECG] [EKG]
CPT/HCPCS: 36415; 70450; 71045; 80053; 80320; 82248; 83735; 84443; 84484; 85025; 93005; 96365; 96366; 99284; J3475; J7030; Q0162; A9270; G0480

== ENCOUNTER 2025-08-21 10:00 | Outpatient (RCR) | payer MEDICAID, SELFPAY ==
--- NOTE | 2025-07-29 14:32 | PT.ODAYNRPT ---
PT Outpatient Daily Note OP Daily Note Outpatient Physical Therapy Treatment Date: 07/29/25 Visit Reasons: post op tka Subjective: Pt's knee is better, however, was recently hospitalized due to imbalance electrolytes and malnutrition. Pt has not been eating well since his knee replacement surgery; only intake liquid soup. Pt is being refer to a specialist at the moment. Objective: Right Knee Flexion AROM: 120 deg Assessment: Pt demonstrate decrease strength and energy prior to PT session. No bike was used in today's session and only perform supine exercises Plan: Continue with PT Length of Time (minutes) of Treatment: 30 Minutes Procedure Charges Therapeutic Exercise 30 minutes: Yes
--- NOTE | 2025-07-31 11:04 | PT.ODAYNRPT ---
PT Outpatient Daily Note OP Daily Note Outpatient Physical Therapy Treatment Date: 07/31/25 Visit Reasons: post op tka Subjective: Pt's knee is better. Pt mentioned he can now eat tortillas. Objective: Please see flow chart for list of ther ex performed Assessment: patient came into therapy with more energy and less frail. Pt was able to use sci fit and resume exercises with weight Plan: Continue with PT Length of Time (minutes) of Treatment: 30 Minutes Procedure Charges Therapeutic Exercise 30 minutes: Yes
--- NOTE | 2025-08-06 10:40 | PT.ODAYNRPT ---
PT Outpatient Daily Note OP Daily Note Outpatient Physical Therapy Treatment Date: 08/06/25 Visit Reasons: post op tka Subjective: Pt reports R knee is doing better but has been having more difficulty getting around due to L knee pain. Objective: Please see flow sheet for ther ex list. Assessment: Interventions given alternating sitting and standing, pt has poor tolerance with closed chain interventions due to secondary L knee pain. Plan: Continue with poC. Length of Time (minutes) of Treatment: 30 Minutes Procedure Charges Therapeutic Exercise 30 minutes: Yes
--- NOTE | 2025-08-08 11:07 | PT.ODAYNRPT ---
PT Outpatient Daily Note OP Daily Note Outpatient Physical Therapy Treatment Date: 08/08/25 Visit Reasons: post op tka Subjective: Pt reports R knee is progressing well, but lately has been having a lot of pain on L knee making it difficult to walk and get around. Pt would like to do 2 more sessions of PT then be done with PT. Objective: Please see flow sheet for ther ex list. Assessment: Pt demonstrates poor tolerance with closed chain interventions due to L knee pain. Plan: Pt to complete 2 more visits of PT then DC. Length of Time (minutes) of Treatment: 30 Minutes Procedure Charges Therapeutic Exercise 30 minutes: Yes
--- NOTE | 2025-08-13 11:16 | PT.ODAYNRPT ---
PT Outpatient Daily Note OP Daily Note Outpatient Physical Therapy Treatment Date: 08/13/25 Visit Reasons: post op tka Subjective: Pt reports R knee is doing better but still not able to get around much due to L knee pain. Objective: Please see flow sheet for ther ex list. Assessment: Isolating R LE with interventions assigned avoiding B exercises to accommodate c/o high pain of L LE. Plan: Continue with poC. Length of Time (minutes) of Treatment: 30 Minutes Procedure Charges Therapeutic Exercise 30 minutes: Yes
--- NOTE | 2025-08-19 10:39 | PT.ODAYNRPT ---
PT Outpatient Daily Note OP Daily Note Outpatient Physical Therapy Treatment Date: 08/19/25 Visit Reasons: post op tka Subjective: Pt's knee is better. Pt mentioned he wanted to stop physical therapy because left knee is hurting, however, change his mind and will continue PT until he completes authorized session Objective: Right Knee Flexion AROM: 125 deg Assessment: Pt has met knee flexion AROM goal and demonstrate minimal right knee pain with closed chain exercises. Pt's current limitation to exercises progression is due to left knee pain Plan: Continue with PT Length of Time (minutes) of Treatment: 30 Minutes Procedure Charges Therapeutic Exercise 30 minutes: Yes
--- NOTE | 2025-08-21 10:29 | PT.ODAYNRPT ---
PT Outpatient Daily Note OP Daily Note Outpatient Physical Therapy Treatment Date: 08/21/25 Visit Reasons: post op tka Subjective: Pt reports R knee is progressing well, has a follow up with surgeon next week. Pt continues to c/o L LE knee pain that is currently limiting his the most. Objective: Please see flow sheet for ther ex list. Assessment: Pt demonstrates poor tolerance with closed chain interventions, modified interventions alternating sitting and standing. Plan: Continue with poC. Length of Time (minutes) of Treatment: 30 Minutes Procedure Charges Therapeutic Exercise 30 minutes: Yes
== END 2025-08-23 23:59 | disposition home or self-care (01) ==
LOC: CPTX 10:00
PROVIDERS: PCP Orthopaedic Surgery Adult Reconstructive Orthopaedic Surgery; Referring Provider Orthopaedic Surgery Adult Reconstructive Orthopaedic Surgery; Visit Provider Orthopaedic Surgery Adult Reconstructive Orthopaedic Surgery
DX: Z47.1 Aftercare following joint replacement surgery (principal); Z96.651 Presence of right artificial knee joint; M25.561 Pain in right knee; R26.2 Difficulty in walking, not elsewhere classified; R26.89 Other abnormalities of gait and mobility
CPT/HCPCS: 97110

== ENCOUNTER 2025-08-29 10:30 | Outpatient (RCR) | payer MEDICAID, SELFPAY ==
--- NOTE | 2025-08-27 10:49 | PT.ODAYNRPT ---
PT Outpatient Daily Note OP Daily Note Outpatient Physical Therapy Treatment Date: 08/27/25 Visit Reasons: POST OP TKA Subjective: Pt's knee is better. Pt does not have any concerns. Objective: Please see flow chart for list of ther ex performed Assessment: tolerate exercises with minimal pain and patient had difficulty completing lateral step up due to fatigue Plan: Continue with PT Length of Time (minutes) of Treatment: 30 Minutes Procedure Charges Therapeutic Exercise 30 minutes: Yes
--- NOTE | 2025-08-29 10:51 | PT.ODS1RPT ---
PT OP Progress/Discharge Note Date of Service: 08/29/25 Progress Note/DC Note Progress Note/Discharge Note: DC Note Patient Information Visit Reasons: POST OP TKA Medical Diagnosis: Right Knee OA; Right Knee Pain Treatment Dx #1: Right Knee Mobility Deficits Treatment Dx #2: Right Knee Pain Service Continue Service or Discharge: Continue Service Discharge Date: 08/29/25 Status Subjective: Pt is doing well and knee feels much better. Pt has been able to walk longer, stand, perform chores, and recreational activities with less limitation. Pt also mentioned his biggest limitation is left knee which he will be seeing surgeon on the to determine surgical date. Objective: Right Knee AROM: -8 deg to 121 deg Right Knee MMTs: grossly 4/5 Right Hip MMTs: grossly 4-/5 SLS: 15 sec Assessment: Pt demonstrate functional right knee mobility and strength allowing patient to resume ADLs, ambulate, and perform chores with less limitation. Pt has met set goals and will no longer benefit from physical therapy. Pt was instructed on HEP last session and educated to continue exercises to maintain overall mobility. Pt perfomed all exercises safely, thank you for your referrals. Plan: D/C home with HEP and follow up with MD [facility] Procedure Charges Therapeutic Exercise 30 minutes: Yes
== END 2025-09-22 23:59 | disposition home or self-care (01) ==
LOC: CPTX 10:30
PROVIDERS: PCP Orthopaedic Surgery Adult Reconstructive Orthopaedic Surgery; Referring Provider Orthopaedic Surgery Adult Reconstructive Orthopaedic Surgery; Visit Provider Orthopaedic Surgery Adult Reconstructive Orthopaedic Surgery
DX: Z47.1 Aftercare following joint replacement surgery (principal); Z96.651 Presence of right artificial knee joint; M25.561 Pain in right knee; R26.2 Difficulty in walking, not elsewhere classified; R26.89 Other abnormalities of gait and mobility
CPT/HCPCS: 97110

== ENCOUNTER 2025-09-05 08:27 | Outpatient (AMB) | payer MEDICAID, SELFPAY ==
--- NOTE | 2025-09-05 08:49 | ORTHONT_ITS ---
Vital signs 09/05/25 08:52 Height 1.73 m Height Method Stated Weight 99.592 kg Weight Measurement Method Standing Scale BMI 33.3 BP 124/97 H Blood Pressure Source Automatic Cuff Blood Pressure Location Left Upper Arm Position Sitting Respiration 18 Pulse 72 Pulse Source Monitor Temp 97.8 F Temp Source Temporal Artery Scan Pulse Oximetry (%) 96 Oxygen Delivery Method Room Air Med/Allergies Allergies & Medications Allergies No Known Allergies Allergy (Verified 09/05/25 08:53) Medication Reconciliation atorvastatin 40 mg tablet 40 mg PO HS 09/25/22 [History Confirmed 09/05/25] amlodipine 10 mg tablet 10 mg PO HS 05/29/25 [History Confirmed 09/05/25] ergocalciferol (vitamin D2) 1,250 mcg (50,000 unit) capsule 1,250 mcg PO QWEEK 05/29/25 [History Confirmed 09/05/25] metformin 1,000 mg tablet 1,000 mg PO BID 05/29/25 [History Confirmed 09/05/25] omeprazole 40 mg capsule,delayed release 40 mg PO DAILY 05/29/25 [History Confirmed 09/05/25] cyclobenzaprine 5 mg tablet 5 mg PO QHS PRN muscle spasm #30 tabs 07/04/25 [Rx Confirmed 09/05/25] gabapentin 300 mg capsule 300 mg PO .qhs #30 caps 07/04/25 [Rx Confirmed 09/05/25] insulin degludec 100 unit/mL (3 mL) subcutaneous pen (Tresiba FlexTouch U-100 insulin) 15 unit subcut HS 07/16/25 [History Confirmed 09/05/25] Held on 07/17/25. Instructions: Resume on 07/31/25. Resume after PCP follow up. montelukast 10 mg tablet 10 mg PO QDAY 07/16/25 [History Confirmed 09/05/25] tamsulosin 0.4 mg capsule 0.4 mg PO Q24H 07/16/25 [History Confirmed 09/05/25] amiloride 5 mg tablet 5 mg PO QDAY #30 tabs 07/20/25 [Rx Confirmed 09/05/25] sitagliptin phosphate 25 mg tablet (Januvia) 25 mg PO QDAY #30 tabs 07/20/25 [Rx Confirmed 09/05/25] Exam Exam Patient is in no acute distress and is cooperative with the examination today. Patient has a normal mood and affect. Breathing is nonlabored. In no respiratory distress. Bilateral extremities were evaluated and demonstrates sensation intact to light touch. Palpable pedal pulses are present. No significant edema is present. Right knee incisions clean dry intact. Range of motion 0 to 105 degrees RESULTS Imaging - X-ray of the knees: 09/11/2024, Bone on bone arthritis with varus deformity and osteophytes of the left knee Assessment and Plan Problem List (1) Degenerative arthritis of knee, bilateral: Status: Acute Plan: Patient is a pleasant 53-year-old male with bilateral knee pain and bilateral knee arthritis. His hemoglobin A1c is 7.9. He is doing well status post right total knee replacement. He reports the left knee is bothering him and affecting his quality life. ASSESSMENT AND PLAN 1. Left knee pain. Significant discomfort in the left knee is reported, affecting quality of life. Previous treatments, including three injections, physical therapy, and anti- inflammatory medications such as meloxicam, have not provided relief. X-rays from 09/11/2024 show urzb-ow-onum arthritis in the medial compartment of the left knee. A left knee replacement surgery is recommended and will be scheduled before the new year. No additional imaging or cardiac clearance is required as similar procedures were recently performed for the right knee. The nature and purpose of the total knee replacement, alternative method(s) of treatment, the material risks involved, and the possibility of complications were fully explained to the patient. The patient does NOT have any of the following contraindications to TKA: - Active infection of the knee joint, OR - Active systemic bacteremia, OR - Active skin infection or open wound at surgical site, OR - Neuropathic arthritis, OR - Severe, rapidly progressive neurological disease, OR - Severe medical condition that makes risks of surgery outweigh the potential benefit The patient was told the most common risks and complications associated with a total knee replacement include, but are not limited to: blood clots in the leg, fatal pulmonary embolism, dislocation of the prosthesis, intraoperative and po stoperative fractures of the femur or tibia, infection, failure of the prosthesis or grafting materials, complications from anesthesia, reactions to blood transfusions, postoperative leg length inequality, instability of the knee replacement, nerve damage or injury, vascular injury, delayed wound healing, infection, other injury or even . In addition, there are risks associated with anesthesia given during this operation. Also, the patient was told that after undergoing a total knee replacement there may still be persistent pain or disability. The patient was informed that the success of this operation in part depends upon the mechanical devices which are going to be implanted and that these devices can fail or malfunction, and may need to be repaired or replaced and there are no guarantees as to the longevity of this device or its parts and that it or its parts could fail prematurely. The patient was also notified that during the course of surgery, there may be a need to use bone graft from donors, and that any bone graft used will be carefully screened for communicable diseases, including AIDS, hepatitis, Paul-Creutzfeldt, or other diseases, but despite the screening procedures, there is a small chance that they could contract one of these diseases. Finally, the patient was asked to follow completely and fully with all advice and recommended treatments, and that recovery and ultimate outcome are affected by their compliance with recommended treatment. We discussed the risks, benefits and treatment alternatives, and the patient is interested in proceeding with surgery. We will try to set this up as expeditiously as possible. Office Procedures GNS Level of Care Nursing/Assessment Patient Status: Established Patient Nursing Assessment/Reassesment: Medication Reconciliation, Update PMH in EMR and Vital Signs Coordination of Care: Complex Care and Chronic Disease 1-5, Education Complex Pt/Fam, Consent,records obtained, informed consent, Results/Orders obtained and Staff clarify orders Special Needs: Language special needs Established Patient Charge Established Patient Point Assignment: 95 Established Patient Point Charge: Level 3 (80-115) MA Intake Visit Data Collection New Patient or Established: Established Patient (seen at [facility] within 3 years) Reason for Visit:: R TKA FU/L TKA REQ SX Seen by Clinical Staff ONLY (RN/MA): No Verbal consent obtained for Telemed visit?: No Cloth Booker Required: Yes PCP or OBGYN visit in last 3 months: No Hx Now: No Do You Feel Safe at Home: Yes Authorities Contacted: N/A Questionairres Past Medical History Past Medical History Have you ever been diagnosed with any of the following: Neurological Problems Cerebrovascular Accident (CVA): No Transient Ischemic Attacks (TIA): No Dementia: No Alzheimer's Disease: No Parkinson's Disease: No Brain Tumor: No Meningitis: No Seizures: No Epilepsy: No Multiple Sclerosis: No Cerebral Palsy: No Amyotrophic Lateral Sclerosis (ALS/Laverne Gehrig's): No Guillain-[place] Syndrome: No Spina Bifida: No Paralysis: No Peripheral Neuropathy: No Kang's Palsy: No Subdural Hematoma: No Migraine: No Head Trauma: No Spinal Cord Injury: No Traumatic Brain Injury: No Cardiology Problems Myocardial Infarction: No Cardiac Arrhythmia: No Atrial Fibrillation: No Angina: No Heart Murmur: No Coronary Artery Disease: No Atherosclerotic Heart Disease: No Peripheral Vascular Disease: No Hypercholesterolemia: Yes Aneurysm: No Congestive Heart Failure: No Congenital Heart Disease: No Valvular Heart Disease: No Rheumatic Fever: No Cardiomyopathy: No Edema: Yes Pericarditis: No Cellulitis: No Deep Vein Thrombosis: No Hypertension: Yes Hypotension: No Varicose Veins: No Respiratory Problems Chronic Obstructive Pulmonary Disease (COPD): No Asthma: No Bronchitis: No Emphysema: No Pneumonia: No Pulmonary Fibrosis: No Tuberculosis: No Pulmonary Embolism: No Pulmonary Edema: No Sleep Apnea: No CPAP Dependent: No Respiratory Aspiration: No Dyspnea: No Orthopnea: No Hx Cough: No Cough: No Wheezing: No Chest Deformities: No Smoking: Yes (15 YEARS) Smoking Cessation Counseling: No Smoking Exposure: Yes Tobacco Use: No Clubbing: No Exposure to Respiratory Irritants: No Intubation: No Stomache/Intestinal Problems Liver Cancer: No Hepatitis: No Cirrhosis: No Pancreatic Cancer: No Pancreatitis: No Celiac Disease: No Gall Bladder Disease: No Gastrointestinal Bleed: No Esophageal Varices: No Sidhu's Esophagus: No Colitis: No Ulcerative Colitis: No Diverticulitis: No Diverticulosis: No Ulcer: No Colorectal Cancer: No Irritable Bowel: No Crohn's Disease: No Obstructive Bowel: No Hiatal Hernia: No Hemorrhoids: No Gastroesophageal Reflux Disease: Yes Polyps: No Obesity: Yes Genital/Urinary Problems Chronic Kidney Disease: No Renal Disease: No Kidney Stones: No Polycystic Kidney Disease: No Neurogenic Bladder: No Inguinal Hernia: No Dialysis: No Prostate Cancer: No Benign Prostatic Hyperplasia: Yes Reproductive Problems Breast Cancer: No Fibroids: No Genital Herpes: No Gonorrhea: No Syphilis: No Testicular Cancer: No Musculoskeletal Problems Muscular Dystrophy: No Myasthenia Gravis: No Marfan's Syndrome: No Bone Cancer: No Arthritis: Yes Rheumatoid Arthritis: No Osteoporosis: No Degenerative Disk Disease: No Gout: No Scoliosis: No Carpal Tunnel Syndrome: No Fibromyalgia: No Fractures: No Degenerative Joint Disease: No Osteomyelitis: No Poliovirus: No Head,Eye,Nose,Throat Problems Cataracts: No Glaucoma: No Blind: No Retinal Detachment: No Macular Degeneration: No Chronic Ear Infections: No Deafness: No Eye Prosthesis: No Endocrine Problems Diabetes Mellitus Type 1: No Diabetes Mellitus Type 2: Yes Hypoglycemia: No [place]'s Syndrome: No Henrique's Disease: No Hyperthyroidism: No Hypothyroidism: No Thyroid Cancer: No Parathyroid Disease: No Pituitary Disease: No Systemic Lupus Erythematosus: No Syndrome of Inappropriate Antidiuretic Hormone: No Adrenal Disease: No Graves' Disease: No Blood Problems Anemia: No Leukemia: No Hemophilia: No Thalassemia: No Sickle Cell Disease: No Clotting Problems: No Psychologic Problems Schizophrenia: No Recreational Drug Use: No Bipolar Disorder: No Depression: Yes Anxiety: Yes Behavior Problems: No Self-Mutilation: No Attention Deficit Disorder: No Attention Deficit Hyperactivity Disorder: No Depression: No Post Traumatic Stress Disorder: No Eating Disorder: No Other Problems Hospitalization: Yes Autoimmune Disease: No Down Syndrome: No Autism: No Developmental Delay: No Cosmetic Surgery: No Shingles: No Falls: No Blood Transfusions: No Blood Transfusion Reaction: No Anesthesia Reactions: No Organ Transplant: No Chemotherapy: No Radiation Therapy: No Hyperbaric Therapy: No MRSA: No VRSA: No Vancomycin-Resistant Enterococci: No Human Immunodeficiency Virus (HIV): No Chicken Pox: Yes Measles: No Mumps: No Rubella (Armenian Measles): No Pertussis: No Klebsiella Pneumoniae Carbapenemase Producing Bacteria: No Clostridium Difficile: No Hepatitis A: No Hepatitis B: No Hepatitis C: No Communicable Disease: No Cancer: No Lung Cancer: No Surgical History Angioplasty: No Appendectomy: No Bariatric Surgery: No Breast Surgery: No Cancer Surgery: No Carotid Endarterectomy: No Cholecystectomy: No Colectomy: No Colostomy: No Coronary Artery Bypass Graft: No Valve Replacement: No Herniorrhaphy: No Total Hip Replacement: No Total Knee Replacement: No Pacemaker: No Sinus Surgery: No Splenectomy: No Thyroidectomy: No Ureter Stent: No Subjective Visit Visit for: follow up visit and knee Immunization / Flu Flu Vaccine in the Last 12 Months: No Flu Vaccine Exclusion Criteria: No Exclusion Criteria History of Present Illness Chief complaint: R TKA FU/REQ L TKA Date of 1st surgery (if applicable): 06/05/2025 HISTORY OF PRESENT ILLNESS IFreddy, have obtained verbal consent from the patient, to be recorded during this encounter which may include, but not limited to, medical history, examination, treatment plans, and relevant health information.? Patient was informed that recording will be read and reviewed by myself before inclusion in the medical chart. The patient is a 54-year-old male who presents for discomfort in his left knee, which is significantly impacting his quality of life and overall happiness. He is accompanied by an science interpreter. He reports that his right knee is functioning well post-surgery and expresses a desire to have the same procedure performed on his left knee. He also mentions difficulty in walking due to the pain. He has attempted to alleviate the pain through three injections, physical therapy, and medication, including anti- inflammatories such as meloxicam, but these interventions have not provided relief. 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
[2025-09-05 08:52] VITALS: BP 124/97; PULSE 72; RESP 18; TEMP 36.6; O2SAT 96; BMI 33.3
== END 2025-09-05 09:08 | disposition home or self-care (01) ==
PROVIDERS: PCP Registered Nurse Community Health; Referring Provider Registered Nurse Community Health; Supervising Provider Orthopaedic Surgery Adult Reconstructive Orthopaedic Surgery; Visit Provider Orthopaedic Surgery Adult Reconstructive Orthopaedic Surgery
DX: M17.12 Unilateral primary osteoarthritis, left knee (principal); Z96.651 Presence of right artificial knee joint; M25.562 Pain in left knee
CPT/HCPCS: 99213; G0463

== ENCOUNTER 2025-10-08 13:40 | Outpatient (AMB) | payer MEDICAID, SELFPAY ==
[2025-10-08 14:13] VITALS: BP 122/77; PULSE 88; RESP 18; TEMP 36.2; O2SAT 92; BMI 35.6
--- NOTE | 2025-10-08 14:13 | ORTHONT_ITS ---
Vital signs 10/08/25 14:13 Height 1.73 m Height Method Stated Weight 106.764 kg Weight Measurement Method Standing Scale BMI 35.6 BP 122/77 Blood Pressure Source Automatic Cuff Blood Pressure Location Left Upper Arm Position Sitting Respiration 18 Pulse 88 Pulse Source Monitor Temp 97.2 F Temp Source Temporal Artery Scan Pulse Oximetry (%) 92 L Oxygen Delivery Method Room Air Med/Allergies Allergies & Medications Allergies No Known Allergies Allergy (Verified 10/08/25 14:14) Medication Reconciliation atorvastatin 40 mg tablet 40 mg PO HS 09/25/22 [History Confirmed 10/08/25] amlodipine 10 mg tablet 10 mg PO HS 05/29/25 [History Confirmed 10/08/25] ergocalciferol (vitamin D2) 1,250 mcg (50,000 unit) capsule 1,250 mcg PO QWEEK 05/29/25 [History Confirmed 10/08/25] metformin 1,000 mg tablet 1,000 mg PO BID 05/29/25 [History Confirmed 10/08/25] omeprazole 40 mg capsule,delayed release 40 mg PO DAILY 05/29/25 [History Confirmed 10/08/25] cyclobenzaprine 5 mg tablet 5 mg PO QHS PRN muscle spasm #30 tabs 07/04/25 [Rx Confirmed 10/08/25] gabapentin 300 mg capsule 300 mg PO .qhs #30 caps 07/04/25 [Rx Confirmed 10/08/25] insulin degludec 100 unit/mL (3 mL) subcutaneous pen (Tresiba FlexTouch U-100 insulin) 15 unit subcut HS 07/16/25 [History Confirmed 10/08/25] Held on 07/17/25. Instructions: Resume on 07/31/25. Resume after PCP follow up. montelukast 10 mg tablet 10 mg PO QDAY 07/16/25 [History Confirmed 10/08/25] tamsulosin 0.4 mg capsule 0.4 mg PO Q24H 07/16/25 [History Confirmed 10/08/25] amiloride 5 mg tablet 5 mg PO QDAY #30 tabs 07/20/25 [Rx Confirmed 10/08/25] sitagliptin phosphate 25 mg tablet (Januvia) 25 mg PO QDAY #30 tabs 07/20/25 [Rx Confirmed 10/08/25] Exam Exam Patient is in no acute distress and is cooperative with the examination today. Patient has a normal mood and affect. Breathing is nonlabored. In no respiratory distress. Bilateral extremities were evaluated and demonstrates sensation intact to light touch. Palpable pedal pulses are present. No significant edema is present. Right knee incisions clean dry intact. Range of motion 0 to 105 degrees RESULTS Imaging - X-ray of the knees: 09/11/2024, Bone on bone arthritis with varus deformity and osteophytes of the left knee Assessment and Plan Problem List (1) Degenerative arthritis of knee, bilateral: Status: Acute Plan: Patient is a pleasant 53-year-old male with bilateral knee pain and bilateral knee arthritis. His hemoglobin A1c is 7.9. He is doing well status post right total knee replacement. He reports the left knee is bothering him and affecting his quality life. ASSESSMENT AND PLAN 1. Left knee pain. Significant discomfort in the left knee is reported, affecting quality of life. Previous treatments, including three injections, physical therapy, and anti- inflammatory medications such as meloxicam, have not provided relief. X-rays from 09/11/2024 show [id number] arthritis in the medial compartment of the left knee. A left knee replacement surgery is recommended and will be scheduled before the new year. No additional imaging or cardiac clearance is required as similar procedures were recently performed for the right knee. The nature and purpose of the total knee replacement, alternative method(s) of treatment, the material risks involved, and the possibility of complications were fully explained to the patient. The patient does NOT have any of the following contraindications to TKA: - Active infection of the knee joint, OR - Active systemic bacteremia, OR - Active skin infection or open wound at surgical site, OR - Neuropathic arthritis, OR - Severe, rapidly progressive neurological disease, OR - Severe medical condition that makes risks of surgery outweigh the potential benefit The patient was told the most common risks and complications associated with a total knee replacement include, but are not limited to: blood clots in the leg, fatal pulmonary embolism, dislocation of the prosthesis, intraoperative and p ostoperative fractures of the femur or tibia, infection, failure of the prosthesis or grafting materials, complications from anesthesia, reactions to blood transfusions, postoperative leg length inequality, instability of the knee replacement, nerve damage or injury, vascular injury, delayed wound healing, infection, other injury or even . In addition, there are risks associated with anesthesia given during this operation. Also, the patient was told that after undergoing a total knee replacement there may still be persistent pain or disability. The patient was informed that the success of this operation in part depends upon the mechanical devices which are going to be implanted and that these devices can fail or malfunction, and may need to be repaired or replaced and there are no guarantees as to the longevity of this device or its parts and that it or its parts could fail prematurely. The patient was also notified that during the course of surgery, there may be a need to use bone graft from donors, and that any bone graft used will be carefully screened for communicable diseases, including AIDS, hepatitis, Paul-Creutzfeldt, or other diseases, but despite the screening procedures, there is a small chance that they could contract one of these diseases. Finally, the patient was asked to follow completely and fully with all advice and recommended treatments, and that recovery and ultimate outcome are affected by their compliance with recommended treatment. We discussed the risks, benefits and treatment alternatives, and the patient is interested in proceeding with surgery. We will try to set this up as expeditiously as possible. Office Procedures GNS Level of Care Nursing/Assessment Patient Status: Established Patient Nursing Assessment/Reassesment: Medication Reconciliation, Update PMH in EMR and Vital Signs Coordination of Care: Complex Care and Chronic Disease 1-5, Education Complex Pt/Fam, Consent,records obtained, informed consent, Results/Orders obtained and Staff clarify orders Special Needs: Language special needs Established Patient Charge Established Patient Point Assignment: 95 Established Patient Point Charge: Level 3 (80-115) MA Intake Visit Data Collection New Patient or Established: Established Patient (seen at [facility] within 3 years) Reason for Visit:: PRE OP L TKA SX 10/28/2025 Seen by Clinical Staff ONLY (RN/MA): No Verbal consent obtained for Telemed visit?: No Full Service Vending Driver Required: Yes PCP or OBGYN visit in last 3 months: No Hx Now: No Do You Feel Safe at Home: Yes Authorities Contacted: N/A Questionairres Past Medical History Past Medical History Have you ever been diagnosed with any of the following: Neurological Problems Cerebrovascular Accident (CVA): No Transient Ischemic Attacks (TIA): No Dementia: No Alzheimer's Disease: No Parkinson's Disease: No Brain Tumor: No Meningitis: No Seizures: No Epilepsy: No Multiple Sclerosis: No Cerebral Palsy: No Amyotrophic Lateral Sclerosis (ALS/Laverne Gehrig's): No Guillain-[place] Syndrome: No Spina Bifida: No Paralysis: No Peripheral Neuropathy: No Kang's Palsy: No Subdural Hematoma: No Migraine: No Head Trauma: No Spinal Cord Injury: No Traumatic Brain Injury: No Cardiology Problems Myocardial Infarction: No Cardiac Arrhythmia: No Atrial Fibrillation: No Angina: No Heart Murmur: No Coronary Artery Disease: No Atherosclerotic Heart Disease: No Peripheral Vascular Disease: No Hypercholesterolemia: Yes Aneurysm: No Congestive Heart Failure: No Congenital Heart Disease: No Valvular Heart Disease: No Rheumatic Fever: No Cardiomyopathy: No Edema: Yes Pericarditis: No Cellulitis: No Deep Vein Thrombosis: No Hypertension: Yes Hypotension: No Varicose Veins: No Respiratory Problems Chronic Obstructive Pulmonary Disease (COPD): No Asthma: No Bronchitis: No Emphysema: No Pneumonia: No Pulmonary Fibrosis: No Tuberculosis: No Pulmonary Embolism: No Pulmonary Edema: No Sleep Apnea: No CPAP Dependent: No Respiratory Aspiration: No Dyspnea: No Orthopnea: No Hx Cough: No Cough: No Wheezing: No Chest Deformities: No Smoking: Yes (15 YEARS) Smoking Cessation Counseling: No Smoking Exposure: Yes Tobacco Use: No Clubbing: No Exposure to Respiratory Irritants: No Intubation: No Stomache/Intestinal Problems Liver Cancer: No Hepatitis: No Cirrhosis: No Pancreatic Cancer: No Pancreatitis: No Celiac Disease: No Gall Bladder Disease: No Gastrointestinal Bleed: No Esophageal Varices: No Sidhu's Esophagus: No Colitis: No Ulcerative Colitis: No Diverticulitis: No Diverticulosis: No Ulcer: No Colorectal Cancer: No Irritable Bowel: No Crohn's Disease: No Obstructive Bowel: No Hiatal Hernia: No Hemorrhoids: No Gastroesophageal Reflux Disease: Yes Polyps: No Obesity: Yes Genital/Urinary Problems Chronic Kidney Disease: No Renal Disease: No Kidney Stones: No Polycystic Kidney Disease: No Neurogenic Bladder: No Inguinal Hernia: No Dialysis: No Prostate Cancer: No Benign Prostatic Hyperplasia: Yes Reproductive Problems Breast Cancer: No Fibroids: No Genital Herpes: No Gonorrhea: No Syphilis: No Testicular Cancer: No Musculoskeletal Problems Muscular Dystrophy: No Myasthenia Gravis: No Marfan's Syndrome: No Bone Cancer: No Arthritis: Yes Rheumatoid Arthritis: No Osteoporosis: No Degenerative Disk Disease: No Gout: No Scoliosis: No Carpal Tunnel Syndrome: No Fibromyalgia: No Fractures: No Degenerative Joint Disease: No Osteomyelitis: No Poliovirus: No Head,Eye,Nose,Throat Problems Cataracts: No Glaucoma: No Blind: No Retinal Detachment: No Macular Degeneration: No Chronic Ear Infections: No Deafness: No Eye Prosthesis: No Endocrine Problems Diabetes Mellitus Type 1: No Diabetes Mellitus Type 2: Yes Hypoglycemia: No [place]'s Syndrome: No Henderson's Disease: No Hyperthyroidism: No Hypothyroidism: No Thyroid Cancer: No Parathyroid Disease: No Pituitary Disease: No Systemic Lupus Erythematosus: No Syndrome of Inappropriate Antidiuretic Hormone: No Adrenal Disease: No Graves' Disease: No Blood Problems Anemia: No Leukemia: No Hemophilia: No Thalassemia: No Sickle Cell Disease: No Clotting Problems: No Psychologic Problems Schizophrenia: No Recreational Drug Use: No Bipolar Disorder: No Depression: Yes Anxiety: Yes Behavior Problems: No Self-Mutilation: No Attention Deficit Disorder: No Attention Deficit Hyperactivity Disorder: No Depression: No Post Traumatic Stress Disorder: No Eating Disorder: No Other Problems Hospitalization: Yes Autoimmune Disease: No Down Syndrome: No Autism: No Developmental Delay: No Cosmetic Surgery: No Shingles: No Falls: No Blood Transfusions: No Blood Transfusion Reaction: No Anesthesia Reactions: No Organ Transplant: No Chemotherapy: No Radiation Therapy: No Hyperbaric Therapy: No MRSA: No VRSA: No Vancomycin-Resistant Enterococci: No Human Immunodeficiency Virus (HIV): No Chicken Pox: Yes Measles: No Mumps: No Rubella (Czech Measles): No Pertussis: No Klebsiella Pneumoniae Carbapenemase Producing Bacteria: No Clostridium Difficile: No Hepatitis A: No Hepatitis B: No Hepatitis C: No Communicable Disease: No Cancer: No Lung Cancer: No Surgical History Angioplasty: No Appendectomy: No Bariatric Surgery: No Breast Surgery: No Cancer Surgery: No Carotid Endarterectomy: No Cholecystectomy: No Colectomy: No Colostomy: No Coronary Artery Bypass Graft: No Valve Replacement: No Herniorrhaphy: No Total Hip Replacement: No Total Knee Replacement: No Pacemaker: No Sinus Surgery: No Splenectomy: No Thyroidectomy: No Ureter Stent: No Subjective Visit Visit for: follow up visit and knee Immunization / Flu Flu Vaccine in the Last 12 Months: No Flu Vaccine Exclusion Criteria: No Exclusion Criteria History of Present Illness Chief complaint: R TKA FU/REQ L TKA Date of 1st surgery (if applicable): 06/05/2025 HISTORY OF PRESENT ILLNESS Freddy Cortez, have obtained verbal consent from the patient, to be recorded during this encounter which may include, but not limited to, medical history, examination, treatment plans, and relevant health information.? Patient was informed that recording will be read and reviewed by myself before inclusion in the medical chart. The patient is a 55-year-old male who presents for discomfort in his left knee, which is significantly impacting his quality of life and overall happiness. He is accompanied by an senior web engineer. He reports that his right knee is functioning well post-surgery and expresses a desire to have the same procedure performed on his left knee. He also mentions difficulty in walking due to the pain. He has attempted to alleviate the pain through three injections, physical therapy, and medication, including anti- inflammatories such as meloxicam, but these interventions have not provided relief. 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
== END 2025-10-08 14:31 | disposition home or self-care (01) ==
LOC: HODSRG 13:40
PROVIDERS: PCP Registered Nurse Community Health; Referring Provider Registered Nurse Community Health; Supervising Provider Orthopaedic Surgery Adult Reconstructive Orthopaedic Surgery; Visit Provider Orthopaedic Surgery Adult Reconstructive Orthopaedic Surgery
DX: M17.12 Unilateral primary osteoarthritis, left knee (principal); M25.562 Pain in left knee; Z96.651 Presence of right artificial knee joint; I10 Essential (primary) hypertension; E11.9 Type 2 diabetes mellitus without complications; Z79.4 Long term (current) use of insulin; Z79.84 Long term (current) use of oral hypoglycemic drugs; E66.9 Obesity, unspecified; Z68.35 Body mass index [BMI] 35.0-35.9, adult
CPT/HCPCS: 99213; G0463

== ENCOUNTER → 2025-10-08 | Outpatient (CLI) | payer MEDICAID, SELFPAY ==
--- NOTE | 2025-10-08 13:30 | XR_ITS ---
Examination: CT left lower extremity, without contrast. 2-D sagittal reconstructions. 2-D coronal reconstructions. 3-D reconstructions. Date and time of exam: October 08, 2025, 1303 hours INDICATIONS: Diagnosis unilateral primary osteoarthritis left knee, left knee pain 10 years CTDI: vol (mGy): 12.3 DLP: (mGycm): 1002 Technique: Multiple 1.25 mm axial sections of the left lower extremity without intravenous contrast have been obtained. 2-D sagittal and coronal reconstructions have been obtained. 3-D reconstructions have been obtained. Low dose protocols were performed. One or more of the following dose reduction techniques were used; automated exposure control, adjustment of the mA and/or KV according to patient size, use of iterative reconstruction technique. Findings: Mild osteopenia Moderate narrowing left hip joint No left hip fracture or dislocation, no avascular necrosis Advanced left knee tricompartment osteoarthritis, including severe narrowing medial joint space No patellar dislocation No fracture IMPRESSION: Advanced left knee tricompartment osteoarthritis
== END | disposition home or self-care (01) ==
PROVIDERS: PCP Orthopaedic Surgery Adult Reconstructive Orthopaedic Surgery; Referring Provider Orthopaedic Surgery Adult Reconstructive Orthopaedic Surgery; Visit Provider Orthopaedic Surgery Adult Reconstructive Orthopaedic Surgery
DX: M17.12 Unilateral primary osteoarthritis, left knee (principal)
CPT/HCPCS: 73700